=== PATIENT | male | born 1975 | race Caucasian/White ===

== ENCOUNTER 2024-12-10 17:16 | Emergency (ER) | payer MEDICAID, SELFPAY ==
[2024-12-10 17:24] VITALS: PULSE 98; O2SAT 97
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
--- NOTE | 2024-12-10 18:27 | XR_ITS ---
Examination: Knee, left , 3 views Technique: Knee AP, lateral, oblique 3 views Date and time of exam: December 10, 2024 1810 hrs. Indications: Injury to the knee one day ago, knee pain Findings: Large knee effusion No acute fracture Moderate osteopenia Impression: Given the large knee effusion, consider CT scan knee without contrast follow-up to exclude occult fracture
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
[2024-12-10 18:29] VITALS: BP 69/47; PULSE 80; RESP 18; TEMP 36.6; O2SAT 96
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
[2024-12-10] MEDS: ACETAMINOPHEN 325 MG TABLET 650 MG PO (19:18)
[2024-12-10] MEDS: ONDANSETRON ODT 4 MG TABRAP PO (19:20)
[2024-12-10 19:26] VITALS: BP 156/86; PULSE 113; RESP 18; TEMP 37; O2SAT 95
[2024-12-10 21:00] VITALS: BP 142/76; PULSE 100; RESP 20; TEMP 36.8; O2SAT 98
== END 2024-12-10 21:02 | disposition home or self-care (01) ==
LOC: SERX 20:56
PROVIDERS: Emergency Provider Emergency Medicine
DX: S80.02XA Contusion of left knee, initial encounter (principal); M25.462 Effusion, left knee; S19.9XXA Unspecified injury of neck, initial encounter; S09.90XA Unspecified injury of head, initial encounter; V19.3XXA Pedal cyclist (driver) (passenger) injured in unspecified nontraffic accident, initial encounter; Y93.55 Activity, bike riding; Z91.148 Patient's other noncompliance with medication regimen for other reason
CPT/HCPCS: 70450; 72125; 73562; 80053; 81001; 82010; 82550; 83605; 83690; 84484; 85025; 85610; 99284; Q0162; A9270

== ENCOUNTER 2025-02-10 11:05 | Inpatient (IN) | payer MEDICAID, SELFPAY ==
[2025-02-10] VITALS (9 sets, daily range): BP systolic 107–123; BP diastolic 66–81; PULSE 93–139; RESP 18–26; TEMP 36.3–38.3; O2SAT 95–100; BMI 24.5
--- NOTE | 2025-02-10 11:15 | PD.EDNV ---
Nausea/Vomit./Diarrhea-RME/HPI General Chief complaint: Nausea/Vomiting/Diarrhea Stated complaint: N/V/D Time Seen by Provider: 02/10/25 11:10 Arrival date/time: 02/10/25 11:05 Limitations: no limitations RME / HPI RME / HPI Narrative: 49-year-old male with a history of type 2 diabetes is here today with a 3-day history of nausea, vomiting, and stating he is losing weight. He denies any diarrhea. Denies any urinary frequency or dysuria. No fevers or chills. He states he normally takes pills for his diabetes but has not been taking them. Med list here includes insulin lispro. Patient initially seen by me as he checked in at the [facility]. After his vital signs were checked, patient was found to have mild tachycardia and a mild fever. Labs are drawn and positive for the patient had a leukocytosis. This triggered a sepsis response. Additional orders were requested. MD complaint: nausea and vomiting Related Data Home Medications ?Medication ?Instructions ?Recorded ?Confirmed gemfibrozil 600 mg tablet 600 mg PO BID 12/23/19 12/23/19 metformin 1,000 mg tablet 1,000 mg PO BID 12/23/19 12/23/19 Previous Rx's ?Medication ?Instructions ?Recorded insulin detemir U-100 100 unit/mL 40 unit (0.4 mL) subcut QDAY #3 mL 12/26/19 (3 mL) subcutaneous pen (Levemir FlexTouch U-100 Insulin) insulin lispro 100 unit/mL See Rx Instructions .Route 12/26/19 subcutaneous pen .COMPLEX #3 mL aspirin 81 mg tablet,delayed 81 mg PO QDAY #30 tabs 06/22/23 release atorvastatin 20 mg tablet 20 mg PO QPM #30 tabs 06/22/23 clopidogrel 75 mg tablet 75 mg PO QDAY #30 tabs 06/22/23 meloxicam 7.5 mg tablet 7.5 mg PO QDAY #10 tabs 12/10/24 Allergies Allergy/AdvReac Type Severity Reaction Status Date / Time No Known Allergies Allergy Verified 02/10/25 11:08 Review of Systems Review of Systems Systems Reviewed: All systems reviewed, normal except as documented ED Exam General Limitations: Present no limitations General appearance: Present alert and in no apparent distress Head Head exam: Present atraumatic Eye Eye exam: Present normal appearance, PERRL and EOMI ENT ENT exam: Present normal exam, normal oropharynx and mucous membranes moist Neck Neck exam: Present normal inspection, full ROM and trachea midline Chest Chest inspection: Present normal inspection and symmetric chest wall rise Respiratory Respiratory exam: Present normal lung sounds bilaterally Cardiovascular Cardiovascular exam: Present regular rate, normal rhythm and normal heart sounds Abdominal Exam Abdominal exam: Present soft and normal bowel sounds Extremities Exam Extremities exam: Present full ROM Back Exam Back exam: Present normal inspection, full ROM and other ( mild erythema but no open wounds at the sacram) Neurological Exam Neurological exam: Present alert and oriented X3 Psychiatric Psychiatric exam: Present normal affect and normal mood Skin Skin exam: Present warm, dry and intact Other Other exam information: There is mild erythema but no open wounds at the sacrum. There is significant skin breakdown, erythema, and mild purulent drainage of the right hallux and in between the webspaces of all the toes. There is dark, black, necrotic tissue at the distal right hallux, maggots are present. There is mild distal erythema of the left toes with no purulent drainage within the webspaces. Course Course Course Narrative: Patient was initially seen by me as he walked into the emergency room at the [facility] while being triaged. His complaint was nausea, vomiting, and not taking his antidiabetic medications. Workup was initiated at time. Patient was later found to be tachycardic, febrile, and had a leukocytosis. He was brought back to exam room and further examined. It was noted that patient had open wounds at his right toe, maggots were present in his skin. Patient states he is homeless and has bipolar disorder. He does not take any medications at all. He denies any history of alcohol or substance abuse. Interventions were initiated included the fluid bolus, initially ceftriaxone, once his skin infection was noted, we started vancomycin. We will admit to medicine. Case discussed with attending ER physician At approximately 1700 p.m., the resident with the hospitalist team was contacted and the case were discussed. They will review the case but will likely admit the patient. Quality Measures none Orders Category Date Time Status Admit to Inpatient Status Routine Admission 02/10/25 17:06 Active Patient Condition Routine Admission 02/10/25 17:06 Ordered Bedside Blood Glucose [facility] Care 02/10/25 17:11 Active Bedside Blood Glucose NOW Care 02/10/25 11:17 Active COVID-19 Screening Questionnaire NOW Care 02/10/25 13:[address] Screening NOW Care 02/10/25 13:04 Active Decision to Admit X1 Care 02/10/25 13:19 Active NPO after Midnight ONCE Care 02/10/25 17:15 Active Notify provider NEEDED Care 02/10/25 17:06 Active Wound Care NOW Care 02/10/25 17:11 Active Consult to General Surgery Routine Cons 02/10/25 17:11 Ordered Diet Carbohydrate Consistent Low Diet 02/10/25 Dinner Active Diet NPO after Midnight Diet 02/11/25 00:01 Active CA echo doppler complete Routine Exams 02/10/25 17:[address] abdomen pelvis w con Stat Exams 02/10/25 13:03 Completed XR chest 1V Stat Exams 02/10/25 12:21 Completed XR foot comp BI min 3V Stat Exams 02/10/25 13:15 Completed A1C [Glycohemoglobin w (eAG)] AM DRAW Lab 02/11/25 05:00 Ordered Basic Metabolic Panel AM DRAW Lab 02/11/25 05:00 Ordered Basic Metabolic Panel AM DRAW Lab 02/12/25 05:00 Ordered Basic Metabolic Panel AM DRAW Lab 02/13/25 05:00 Ordered Blood Culture (Lab) Stat Lab 02/10/25 12:33 Received CBC AM DRAW Lab 02/11/25 05:00 Ordered CBC AM DRAW Lab 02/12/25 05:00 Ordered CBC AM DRAW Lab 02/13/25 05:00 Ordered CBC Stat Lab 02/10/25 11:36 Completed CMP [Comprehensive Metabolic Panel] Stat Lab 02/10/25 11:36 Completed Drug Screen,Urine Stat Lab 02/10/25 17:18 Ordered Ketone [Beta Hydroxybutyrate] Stat Lab 02/10/25 11:36 Completed Lactic Acid [Lactate (Lactic Acid)] Stat Lab 02/10/25 12:33 Completed Lipase Stat Lab 02/10/25 11:36 Completed Lipid Panel AM DRAW Lab 02/11/25 05:00 Ordered Magnesium AM DRAW Lab 02/11/25 05:00 Ordered Magnesium AM DRAW Lab 02/12/25 05:00 Ordered Magnesium AM DRAW Lab 02/13/25 05:00 Ordered Partial Thromboplastin Time AM DRAW Lab 02/11/25 05:00 Ordered Phosphorous AM DRAW Lab 02/11/25 05:00 Ordered Phosphorous AM DRAW Lab 02/12/25 05:00 Ordered Phosphorous AM DRAW Lab 02/13/25 05:00 Ordered Prothrombin Time with INR AM DRAW Lab 02/11/25 05:00 Ordered Thyroid Stimulating Hormone AM DRAW Lab 02/11/25 05:00 Ordered UA [Urinalysis] Stat Lab 02/10/25 12:03 Completed Urine Culture Routine Lab 02/10/25 17:09 Ordered Wound Cult and GS, Anaer Stat Lab 02/10/25 13:18 Received Acetaminophen Tab [Tylenol ES Tab] Med 02/10/25 12:36 Discontinued 1,000 mg PO X1 ONE Acetaminophen Tab [Tylenol Tab] Med 02/10/25 17:06 Active 650 mg PO Q6H PRN Dextrose 50% Syr [D50w Syringe Abboject] Med 02/10/25 17:11 Active 25 ml IV Q15MIN PRN Dextrose 50% Syr [D50w Syringe Abboject] Med 02/10/25 17:11 Active 50 ml IV Q15MIN PRN Glucagon Inj Med 02/10/25 17:11 Active 1 mg IM Q15MIN PRN Heparin Inj Med 02/10/25 21:00 Active 5,000 unit SC BID INSULIN LISPRO (AdmeLOG) [HumaLOG] Med 02/10/25 17:16 Discontinued 10 unit SC X1 ONE INSULIN LISPRO (AdmeLOG) [HumaLOG] Med 02/10/25 18:00 Active See Protocol SC Q6HR Insulin Glargine Inj [Lantus Inj] Med 02/10/25 17:30 Active 15 unit SC QDAY Morphine Inj Med 02/10/25 17:06 Active 1 mg IVP Q4H PRN Morphine Inj Med 02/10/25 13:17 Discontinued 2 mg IVP X1 ONE Ondansetron Inj [Zofran Inj] Med 02/10/25 17:06 Active 4 mg IVP Q6H PRN Ondansetron Odt [Zofran Odt] Med 02/10/25 11:10 Discontinued 4 mg PO X1 ONE Pantoprazole Inj [Protonix Inj] Med 02/11/25 09:00 Active 40 mg IVP QDAY Piper/Tazo 3.375 gm Premix [Zosyn] Med 02/10/25 22:00 Active 3.375 gm in 50 ml IV Q8HR Piper/Tazo 3.375 gm Premix [Zosyn] Med 02/10/25 17:15 Discontinued 3.375 gm in 50 ml IV X1 QUEtiapine FUMARATE [SEROquel] Med 02/10/25 21:00 Active 25 mg PO HS Sodium Chloride 0.9% 1000 ml [Ns] 1,000 ml Med 02/10/25 17:15 Active IV 75 mls/hr Sodium Chloride 0.9% 1000 ml [Ns] 1,000 ml Med 02/10/25 11:18 Discontinued IV 999 mls/hr Sodium Chloride 0.9% 1000 ml [Ns] 2,259 ml Med 02/10/25 12:22 Discontinued IV 2,259 mls/hr Vancomycin Inj 2,000 mg Med 02/10/25 13:15 Discontinued Sodium Chloride 0.9% 500 ml [Ns] 500 ml IV X1 Vancomycin Pharmacy to Dose Med 02/11/25 09:00 Active 1 each IV QDAY PRN Vancomycin/Ns 1 gm Ivpb 200 ml Med 02/11/25 10:00 Active IV Q12H Vancomycin/Ns 1 gm Ivpb 200 ml Med 02/10/25 22:00 Active IV X1 cefTRIAXone [Rocephin] 2 gm Med 02/10/25 12:25 Discontinued SODIUM CHLORIDE 0.9% (Popper) [Ns 0.9% (P)] 50 ml IV X1 Code Status Routine Oth 02/10/25 17:06 Ordered Vital Signs Vital signs: Vital Signs Temperature 100.9 F H 02/10/25 11:56 Pulse Rate 139 H 02/10/25 11:56 Respiratory Rate 18 02/10/25 11:56 Blood Pressure 123/81 02/10/25 11:56 Pulse Oximetry (%) 97 02/10/25 11:56 Oxygen Delivery Method Room Air 02/10/25 11:56 Nausea/Vomiting/Diarrhea Patient data External records reviewed:: None Clinical information provided by:: patient and friend Social determinants that could affect healthcare access:: mental health Patient has the following chronic illnesses:: Possible bipolar disorder, has diabetes, has hypertension How is presenting disease/condition affected by chronic disease/condition?: exacerbated by Evaluation data The following diagnostics were reviewed and interpreted by me:: lab results and radiology exam(s) Lab and/or radiology exams considered but not ordered:: mri foot Interpretation Summary: Osteomyelitis and hyperglycemia, hyponatremia, elevated CRP Medications / Prescriptions Medications / Prescriptions considered but not ordered:: n/a Medication administrations:: Medication Administration History Acetaminophen (Acetaminophen 325 Mg Tablet) 650 mg PO Q6H PRN PRN Reason: PAIN OR FEVER > 100.4 Stop: 03/12/25 17:05 Dextrose (Dextrose 50%-Water Inj 50 Ml Syringe) 25 ml IV Q15MIN PRN PRN Reason: BG 50-70 responsive npo pt Stop: 03/12/25 17:10 Dextrose (Dextrose 50%-Water Inj 50 Ml Syringe) 50 ml IV Q15MIN PRN PRN Reason: BG <50 OR BG <70 & pt unresponsive Stop: 03/12/25 17:10 Glucagon (Glucagon Inj 1 Mg Vial) 1 mg IM Q15MIN PRN PRN Reason: BG <70, and no IV access Heparin Sodium (Porcine) (Heparin Sod Inj 5000 Unit/Ml Vial) 5,000 unit SC BID CHAUNCEY Stop: 02/24/25 20:59 Sodium Chloride (Ns) 1,000 mls @ 75 mls/hr IV .[id number] [place]CEY Stop: 03/12/25 17:14 Piperacillin/Tazobactam/Dextrose (Zosyn) 3.375 gm in 50 mls @ 12.5 mls/hr IV Q8HR [place]CE[place] Stop: 02/17/25 21:59 Vancomycin/Sodium Chloride (Vancomycin/Ns 1 Gm Ivpb) 200 mls @ 120 mls/hr IV X1 ONE Stop: 02/10/25 23:39 Vancomycin/Sodium Chloride (Vancomycin/Ns 1 Gm Ivpb) 200 mls @ 120 mls/hr IV Q12H [place] Stop: 02/18/25 09:59 Insulin Glargine (Insulin Glargine (Lantus) 5 Unit/0.05 Ml (Per 5 Units)) 15 unit SC QDAY [place]CEY Stop: 03/12/25 17:29 Insulin Human Lispro (Insulin Lispro (Admelog) 1 Unit/0.01 Ml Unit) 0 unit SC Q6HR CHAUNCEY; Protocol Stop: 03/12/25 17:59 Morphine Sulfate (Morphine Sulf Inj 10 Mg/Ml Vial) 1 mg IVP Q4H PRN PRN Reason: PAIN SCALE 4-10(Mod-Sev Stop: 02/15/25 17:05 Ondansetron HCl (Ondansetron Inj 2 Mg/Ml Inj 2 Ml) 4 mg IVP Q6H PRN; Protocol PRN Reason: NAUSEA OR VOMITING Stop: 03/12/25 17:05 Pantoprazole Sodium (Pantoprazole Inj 40 Mg Vial) 40 mg IVP QDAY [place] Stop: 03/13/25 08:59 Pharmacy Consult (Vancomycin Pharmacy To Dose 1 Each Each) 1 each IV QDAY PRN PRN Reason: PROTOCOL Stop: 03/13/25 08:59 Quetiapine Fumarate (Quetiapine Fumarate 25 Mg Tablet) 25 mg PO HS [place]CE[place] Stop: 03/12/25 20:59 Discontinued Medications Acetaminophen (Acetaminophen 500 Mg Tablet) 1,000 mg PO X1 ONE Stop: 02/10/25 12:37 Last Admin: 02/10/25 12:42 Dose: 1,000 mg Documented By: SALMA Sodium Chloride (Ns) 1,000 mls @ 999 mls/hr IV .Q1H1M ONE Stop: 02/10/25 12:18 Last Admin: 02/10/25 12:56 Dose: Not Given Documented By: SALMA Non-Admin Reason: Duplicate Medication on eMAR Sodium Chloride (Ns) 2,259 mls @ 2,259 mls/hr 30 ml/kg infuse over 60 min (2259 ml) IV .Q1H ONE; Protocol Stop: 02/10/25 13:21 Last Infusion: 02/10/25 13:56 Dose: Infused Documented By: Admin: 02/10/25 12:56 Dose: 2,259 mls/hr Documented By: VL Ceftriaxone Sodium 2 gm/ (Sodium Chloride) 50 mls @ 100 mls/hr IV X1 ONE Stop: 02/10/25 12:54 Last Infusion: 02/10/25 13:13 Dose: Infused Documented By: Admin: 02/10/25 12:43 Dose: 100 mls/hr Documented By: VL Vancomycin HCl 2,000 mg/ (Sodium Chloride) 500 mls @ 150 mls/hr IV X1 ONE Stop: 02/10/25 16:34 Last Admin: 02/10/25 13:37 Dose: 150 mls/hr Documented By: SALMA Piperacillin/Tazobactam/Dextrose (Zosyn) 3.375 gm in 50 mls @ 100 mls/hr IV X1 ONE Stop: 02/10/25 17:44 Insulin Human Lispro (Insulin Lispro (Admelog) 1 Unit/0.01 Ml Unit) 10 unit SC X1 ONE Stop: 02/10/25 17:17 Morphine Sulfate (Morphine Sulf Inj 10 Mg/Ml Vial) 2 mg IVP X1 ONE Stop: 02/10/25 13:18 Last Admin: 02/10/25 13:37 Dose: 2 mg Documented By: SALMA Ondansetron HCl (Ondansetron Odt 4 Mg Tabrap) 4 mg PO X1 ONE; Protocol Stop: 02/10/25 11:11 Last Admin: 02/10/25 11:51 Dose: 4 mg Documented By: SALMA see above Consultations Consultation(s) initiated? (list below): No Diagnosis Nausea Differential Diagnosis: gastroenteritis and dehydration Most likely diagnosis given after review of the tests above:: Hyponatremia, hyperglycemia, poorly controlled diabetes, osteomyelitis right toe Admission Indicated Admission indicated?: indicated Admission Request Was there a request for admission?: Yes Admission Attestation Admission request attestation: Discussed case with [] from Hospitalist service regarding admission. Discussed patients ED course, exam findings, labs, and radiology results. The Hospitalist [agrees,declines] to accept the patient for admission. Disposition Plan Disposition Plan: Admit Discharge Plan Plan Patient Disposition: Admit Acute Care w/in Hospital Patient condition on transfer: Stable Prescriptions/Referrals Prescriptions/Med Rec: No Action gemfibrozil 600 mg Tablet 600 mg PO BID metformin 1,000 mg Tablet 1,000 mg PO BID Levemir FlexTouch U100 Insulin 100 unit/mL (3 mL) insulin pen 40 unit SC QDAY Qty: 3 0RF Rx Instructions: Please provide with corresponding needles and caps. insulin lispro 100 unit/mL insulin pen See Rx Instructions .ROUTE .COMPLEX Qty: 3 0RF Rx Instructions: Please administer TID AC and HS per light sliding scale. Please provide with corresponding pens and caps. clopidogrel 75 mg tablet 75 mg PO QDAY Qty: 30 2RF atorvastatin 20 mg tablet 20 mg PO QPM Qty: 30 2RF aspirin 81 mg tablet,delayed release (DR/EC) 81 mg PO QDAY Qty: 30 2RF meloxicam 7.5 mg tablet 7.5 mg PO QDAY Qty: 10 0RF Referrals: No Primary/Family,Physician [Primary Care Provider] - In 1 week Problem List Clinical Impression: DOT (acute kidney injury), Acute hyponatremia, Sepsis, Osteomyelitis, Acute hyperglycemia Patient/Caregiver Discharge Instructions Print Language: B[place] Stand Alone Forms: Brigitte Award Info., Patient Portal Info Letter
[2025-02-10 11:44] LABS: Beta Hydroxybutyrate 0.1 mmol/L (<0.6)
[2025-02-10] MEDS: ONDANSETRON ODT 4 MG TABRAP PO (11:51)
[2025-02-10 11:53] LABS: Basophils # (Auto) 0.1 Thou/mm3 (0.0-0.2); Basophils % (Auto) 0 % (0-2.5); Eosinophils # (Auto) 0.0 Thou/mm3 (0.0-0.5); Eosinophils % (Auto) 0 % (0-10); Hematocrit 29.8 % (41.0-53.0); Hemoglobin 10.1 g/dL (13.5-16.0); Immature Granulocytes Auto 0.13 Thou/mm3 (0.00-0.00); Lymphocytes # (Auto) 0.7 Thou/mm3 (1.0-4.8); Lymphocytes % (Auto) 3 % (10-50); Mean Corpuscular HGB Conc 33.9 g/dl (31.0-37.0); Mean Corpuscular Hemoglobin 30.2 pg (25.0-35.0); Mean Corpuscular Volume 89 fL (80-100); Monocytes # (Auto) 1.2 Thou/mm3 (0.0-0.8); Monocytes % (Auto) 6 % (0-12); Neutrophils # (Auto) 20.3 Thou/mm3 (1.8-7.7); Neutrophils % (Auto) 91 % (37-80); Nucleated Red Blood Cell # 0.00 Thou/mm3 (0.00-0.00); Nucleated Red Blood Cell % 0 /100 WBC (0); Platelet Count 358 Thou/mm3 (140-440); RDW Standard Deviation 39.3 fL (35.1-43.9); Red Blood Count 3.34 Miln/mm3 (4.50-5.90); White Blood Count 22.4 Thou/mm3 (3.8-10.6)
--- NOTE | 2025-02-10 11:57 | PC.NURSE ---
Patient in to ED for nausea, vomiting, and diarrhea. Patient has history of diabetes. Patient states his friend saw him and said he did not look good. Patients blood sugar elevated. Patient admits to using methamphetamine this morning, Heart rate 139. All other vital's stable. Plan of care ongoing
[2025-02-10 12:02] LABS: Alanine Aminotransferase 12 U/L (10-49); Albumin, Serum 3.8 gm/dL (3.5-5.0); Albumin/Globulin Ratio 0.8 (1.2-2.2); Alkaline Phosphatase 97 U/L (46-116); Anion Gap 10 (7-16); Aspartate Amino Transferase 16 U/L (0-34); BUN/Creatinine Ratio 14 Ratio (12-20); Bilirubin,Total 0.5 mg/dL (0.3-1.2); Blood Urea Nitrogen 20 mg/dL (9-23); Calcium 9.4 mg/dL (8.3-10.6); Calcium (Corrected) 9.6 mg/dL (8.5-10.1); Carbon Dioxide 27.2 mMol/L (20.0-31.0); Chloride 92 mMol/L (98-107); Creatinine (Component) 1.4 mg/dL (0.6-1.3); Estimated Creatinine Clearance 62.4 mL/min (>60); Globulin 4.5 gm/dL (2.3-3.5); Glucose 372 mg/dL (74-106); Lipase 24 U/L (12-53); Osmolality,Calculated 276 (275-295); Potassium 5.0 mMol/L (3.4-5.1); Sodium 129 mMol/L (136-145); Total Protein 8.3 gm/dL (5.7-8.2); eGFR > 60 See Note
[2025-02-10 12:17] LABS: Collection Type, Urine Voided
--- NOTE | 2025-02-10 12:21 | XR_ITS ---
Examination: AP chest single view Technique: AP portable semiupright chest single view Date and time: February 10, 2025 1308 hrs. Comparison June 12, 2023 Indications: Vomiting today. Findings: Mild prominence left ventricle. No aspiration pneumonia. Mild osteopenia. Impression: No aspiration pneumonia.
[2025-02-10 12:37] LABS: Amorphous Crystals,Urine Present (Absent); Bacteria,Urine Rare; Bilirubin,Urine Negative (Negative); Blood,Urine Negative (Negative); Clarity,Urine Turbid (Clear/Hazy); Color,Urine Yellow (Lt Yel-Yel); Glucose, Urine 4+ (Negative); Granular Casts,Urine 1 /hpf (0-1); Hyaline Casts,Urine < 1 /hpf (0-1); Ketones,Urine Negative (Negative); Leukocyte Esterase,Urine Negative (Negative); Nitrite,Urine Negative (Negative); PH,Urine 6.0 (5.0-7.0); Protein,Urine 2+ (Neg - Trace); RBC,Urine 2 /hpf (0-3); Specific Gravity,Urine 1.028 (1.001-1.035); Squamous Epithelial Cell,Urine < 1 /hpf (0-5); Transitional Epi Cells,Urine 1 /hpf (0-5); Urobilinogen,Urine 2.0 mg/dL (0.0-1.0); WBC,Urine 7 /hpf (0-5)
[2025-02-10] MEDS: ACETAMINOPHEN 500 MG TABLET 1000 MG PO (12:42)
[2025-02-10 12:43] LABS: Lactate (Lactic Acid) 1.5 mMol/L (0.4-2.0)
[2025-02-10] MEDS: cefTRIAXone 2 GM in SODIUM CHLORIDE 0.9% (Popper) 50 ML IV (12:43)
[2025-02-10] MEDS: SODIUM CHLORIDE 0.9% 1000 ML 2,259 ML 2259 ML IV (12:56)
--- NOTE | 2025-02-10 13:03 | XR_ITS ---
Examination: CT abdomen with intravenous contrast CT pelvis with intravenous contrast 2-D coronal reconstructions 2-D sagittal reconstructions Date and time of exam:2024 1450 hrs. Indications: Sepsis alert, tachycardia, vomiting, leukocytosis, nausea vomiting diarrhea beginning 3 days ago, diabetes. CTDI: vol (mGy) 5.99 DLP: (mGycm) 361 Technique: Multiple axial sections of the abdomen and pelvis have been obtained. 64 slice high-resolution scanner used. 3 mm axial sections have been obtained, post intravenous injection 30 cc [id number] 2-D sagittal, coronal reconstructions obtained. Low dose protocols were performed. One or more of the following dose reduction techniques were used; automated exposure control, adjustment of the mA and/or KV according to patient size, use of iterative reconstruction technique. Findings: No aspiration pneumonia. Fatty infiltration throughout the liver. No gallstones No pancreatic or splenic lesion Normal adrenal glands. Minimal right hydronephrosis right hydroureter without renal or ureteral calculi Normal appendix No bowel obstruction Mild prostatomegaly No bladder mass or bladder calculi Moderate osteopenia with chronic osteoporotic compression T10 Impression: Findings suspicious for right pyelonephritis No bowel obstruction Normal appendix
--- NOTE | 2025-02-10 13:15 | XR_ITS ---
Examination: Foot bilateral, 6 views Technique: AP, oblique, lateral views each foot total 6 views Date and time of exam: February 10, 2025, 1433 hrs. Indications: Nonhealing wounds both feet Findings: Severe osteopenia Erosions distal aspect distal phalanx right first digit with soft tissue swelling No judson cortical bone destruction involving the left foot No foreign bodies Impression: Osteomyelitis distal phalanx right foot first digit Consider elective MRI foot without contrast follow-up
[2025-02-10] MEDS: Vancomycin Inj 2,000 MG in SODIUM CHLORIDE 0.9% 500 ML 500 ML 150 MG IV (13:37)
[2025-02-10] MEDS: MORPHINE SULF INJ 10 MG/ML VIAL 2 MG IVP (13:37)
--- NOTE | 2025-02-10 17:13 | ESHP_ITS ---
Documentation for date of: 02/10/25 HPI History of Present Illness History of present illness: Jaya Clements is a homeless 49-year-old male with a past medical history of CVA in 2022 and insulin-dependent type 2 diabetes mellitus who presents on 02/10 after his friend brought him into the ED as he did not look well. Patient himself did not have any complaints but a friend of his noticed that his right hallux was bleeding and had maggots that started about 2 weeks ago. He cannot recall an inciting event that may have led to his injury but currently does not have any pain. Also denies any fever, chills, sweats but has had some nausea and vomiting for the last 2 to 3 days as well as diarrhea but states that this is not new to him. He also states he has had a 60 pound weight loss but he himself did not notice this and is unsure of how long this has been occurring. Also denies abdominal pain, change in bowel movements, or any urinary symptoms/back pain. In ED, initial vitals showed HR 139, temp 100.9 ?F. CBC showed leukocytosis of 22.4, hemoglobin of 10.1. CHEM panel showed sodium 129 with glucose of 372 and corrected sodium of 134, creatinine 1.4 (baseline 1.0), lactic acid within normal limits, lipase within normal limits, beta hydroxybutyrate within normal limits, UA turbid, 2+ protein, 4+ glucose, 7 WBC, rare bacteria. CXR unremarkable. CT A/P showed findings suspicious for right pyelonephritis. X- ray right foot showed osteomyelitis of distal phalanx of right hallux. In ED, given 1 L NS bolus, ceftriaxone x 1, vancomycin x 1. PMHx: Insulin-dependent type 2 diabetes mellitus, CVA in 2022 Medications: Has not taken any medication in last couple of years SHx: Homeless, smokes half pack cigarettes per day, occasional alcohol use, currently uses meth (last use yesterday) Review of Systems Review of Systems Systems Reviewed: All systems reviewed, normal except as documented Exam Vital Signs Temp Pulse Resp BP Pulse Ox O2 Del Method O2 Flow Rate 98.4 F 104 H 18 115/72 100 Nasal Cannula 4 02/10/25 16:44 02/10/25 16:44 02/10/25 16:44 02/10/25 16:44 02/10/25 16:44 02/10/25 16:44 02/10/25 16:44 Narrative Exam General: AOx3, no acute distress, difficult to understand/dysarthric HEENT: Poor dentition, NC/AT, mucous membranes moist, bilateral sclera anicteric Cardiovascular: regular rate and rhythm, S1/S2 present, no murmurs appreciated Pulmonary: clear to auscultation bilaterally, no rales/rhonchi/wheezes Abdominal: soft, non-tender, non-distended, no rebound/guarding, normal bowel sounds present Musculoskeletal: normal ROM, no peripheral edema Skin: Right hallux with necrotic tissue draining blood and maggots present with associated foul smell Neuro: CN II-XII intact, no focal deficits Results: Labs 02/11/25 05:59 02/11/25 05:59 Labs: Short CBC 02/10/25 Range/Units 11:36 WBC 22.4 H (3.8-10.6) Thou/mm3 Hgb 10.1 L (13.5-16.0) g/dL Hct 29.8 L (41.0-53.0) % Plt Count 358 (140-440) Thou/mm3 BMP 02/10/25 11:36 Sodium 129 L Potassium 5.0 Chloride 92 L Carbon Dioxide 27.2 BUN 20 Creatinine 1.4 H Glucose 372 H Calcium 9.4 Liver Function 02/10/25 Range/Units 11:36 Total Bilirubin 0.5 (0.3-1.2) mg/dL AST 16 (0-34) U/L ALT 12 (10-49) U/L Alkaline Phosphatase 97 (46-116) U/L Albumin 3.8 (3.5-5.0) gm/dL Urine 02/10/25 Range/Units 12:03 Urine Color Yellow (Lt Yel-Yel) Urine Clarity Turbid A (Clear/Hazy) Urine pH 6.0 (5.0-7.0) Ur Specific Seale 1.028 (1.001-1.035) Urine Protein 2+ A (Neg - Trace) Urine Glucose (UA) 4+ A (Negative) Quality Measures Quality Measures VTE prophylaxis Medications Home Medications and Allergies Home Medications ?Medication ?Instructions ?Recorded ?Confirmed ?Type gemfibrozil 600 mg tablet 600 mg PO BID 12/23/1912/22 History metformin 1,000 mg tablet 1,000 mg PO BID 12/23/1911/08 History Allergies Allergy/AdvReac Type Severity Reaction Status Date / Time No Known Allergies Allergy Verified 02/10/25 11:08 Visit Medications Acetaminophen (Acetaminophen 325 Mg Tablet) 650 mg PO Q6H PRN PRN Reason: PAIN OR FEVER > 100.4 Stop: 03/12/25 17:05 Dextrose (Dextrose 50%-Water Inj 50 Ml Syringe) 25 ml IV Q15MIN PRN PRN Reason: BG 50-70 responsive npo pt Stop: 03/12/25 17:10 Dextrose (Dextrose 50%-Water Inj 50 Ml Syringe) 50 ml IV Q15MIN PRN PRN Reason: BG <50 OR BG <70 & pt unresponsive Stop: 03/12/25 17:10 Glucagon (Glucagon Inj 1 Mg Vial) 1 mg IM Q15MIN PRN PRN Reason: BG <70, and no IV access Heparin Sodium (Porcine) (Heparin Sod Inj 5000 Unit/Ml Vial) 5,000 unit SC BID [facility] Stop: 02/24/25 20:59 Sodium Chloride (Ns) 1,000 mls @ 75 mls/hr IV .[id number] [facility] Stop: 03/12/25 17:14 Piperacillin/Tazobactam/Dextrose (Zosyn) 50 mls @ 100 mls/hr IV Q6HR [facility] Stop: 02/17/25 17:09 Insulin Human Lispro (Insulin Lispro (Admelog) 1 Unit/0.01 Ml Unit) 0 unit SC Q6HR [facility]; Protocol Stop: 03/12/25 17:59 Morphine Sulfate (Morphine Sulf Inj 10 Mg/Ml Vial) 1 mg IVP Q4H PRN PRN Reason: PAIN SCALE 4-10(Mod-Sev Stop: 02/15/25 17:05 Ondansetron HCl (Ondansetron Inj 2 Mg/Ml Inj 2 Ml) 4 mg IVP Q6H PRN; Protocol PRN Reason: NAUSEA OR VOMITING Stop: 03/12/25 17:05 Pantoprazole Sodium (Pantoprazole Inj 40 Mg Vial) 40 mg IVP QDAY [facility] Stop: 03/13/25 08:59 Pharmacy Consult (Vancomycin Pharmacy To Dose 1 Each Each) 1 each IV QDAY [facility] Stop: 03/13/25 08:59 Discontinued Medications Acetaminophen (Acetaminophen 500 Mg Tablet) 1,000 mg PO X1 ONE Stop: 02/10/25 12:37 Last Admin: 02/10/25 12:42 Dose: 1,000 mg Sodium Chloride (Ns) 1,000 mls @ 999 mls/hr IV .Q1H1M ONE Stop: 02/10/25 12:18 Last Admin: 02/10/25 12:56 Dose: Not Given Sodium Chloride (Ns) 2,259 mls @ 2,259 mls/hr 30 ml/kg infuse over 60 min (2259 ml) IV .Q1H ONE; Protocol Stop: 02/10/25 13:21 Last Infusion: 02/10/25 13:56 Dose: Infused Ceftriaxone Sodium 2 gm/ (Sodium Chloride) 50 mls @ 100 mls/hr IV X1 ONE Stop: 02/10/25 12:54 Last Infusion: 02/10/25 13:13 Dose: Infused Vancomycin HCl 2,000 mg/ (Sodium Chloride) 500 mls @ 150 mls/hr IV X1 ONE Stop: 02/10/25 16:34 Last Admin: 02/10/25 13:37 Dose: 150 mls/hr Morphine Sulfate (Morphine Sulf Inj 10 Mg/Ml Vial) 2 mg IVP X1 ONE Stop: 02/10/25 13:18 Last Admin: 02/10/25 13:37 Dose: 2 mg Ondansetron HCl (Ondansetron Odt 4 Mg Tabrap) 4 mg PO X1 ONE; Protocol Stop: 02/10/25 11:11 Last Admin: 02/10/25 11:51 Dose: 4 mg Assessment & Plan Plan Jaya Clements is a homeless 49-year-old male with a past medical history of CVA in 2022 and insulin-dependent type 2 diabetes mellitus who is admitted for right hallux osteomyelitis and DOT. #Sepsis secondary to right hallux osteomyelitis #Wet gangrene of right hallux Presents with necrotic, foul-smelling, draining tissue with maggots present on the right hallux. No fever or chills but has had some nausea and vomiting. ED, temperature 100.9 ?F, HR 139, leukocytosis of 22.4, and endorgan damage evidenced by DOT with creatinine 1.4 (baseline 1.0). Patient also has a history of uncontrolled diabetes mellitus which is likely contributing to severity of infection. Patient states that he is homeless and has not taken medications in years. CXR if right foot showed erosions distal aspect distal phalanx right first digit with soft tissue swelling. ? General Surgery consulted, appreciate recommendations ? Vancomycin and Zosyn (02/10-) ? Wound culture 02/10-pending ? Blood culture 02/10: Pending ? Wound care ? N.p.o. after midnight ? NS at 75 cc/h #Acute kidney injury #Right-sided pyelonephritis as seen on imaging Denies any urinary symptoms and no CVA tenderness on exam. UA showed 7 WBC but rare bacteria only. ? Follow-up urine culture ? Vancomycin and Zosyn as above ? NS at 75 cc/h ? Avoid nephrotoxic agents when possible, renally dose medications #Type 2 diabetes mellitus, insulin-dependent #Pseudohyponatremia A1c in 2022 with 10.5 and was 16.1 in 2019. Has not taken medications in many years. ? Glargine 15 units daily ? SSI ? Follow-up A1c ? Hypoglycemic protocol placed #Methamphetamine use #Homelessness ? Referral to social services manager ? Follow-up urine drug screen ? Follow-up echo to evaluate for possible side effects of methamphetamine use #History of stroke in 2022 Large acute infarct right frontoparietal lobe per MRI. Given that patient will likely undergo procedure, will hold antiplatelets at this time. ? Follow-up lipid panel in AM Hospital management: Disposition: Pending surgery recommendations, IV antibiotics, cultures, DOT Fluids: NS at 75 cc/h Diet: Carb consistent low, n.p.o. after midnight Lines: PIV DVT prophylaxis: Heparin SC BID GI prophylaxis: PPI CODE STATUS: full code ----- Plan discussed with attending physician Dr. Johan Brannon MD PGY-1 Internal Medicine Attending Provider Attestation/Addendum I attest that I was physically present for the evaluation, physical examination, lab and imaging review of the patient with the residents. I discussed the case with the residents and agree with the findings and plans of care as documented above. Patient is a 49 years old male with past medical history of CVA in 2022, diabetes mellitus who presented to the ED by his friend who thought patient did not look well. Patient has been having wound on his right first toe with bleeding and maggots which started 2 weeks back. Patient does not have any pain around his legs and does not remember any injury. Denies any fever. In the ED, he was found to have temperature of 100.9, WBC of 22.4. Also had glucose of 372, creatinine 1.4. UA showed 7 WBCs, rare bacteria. CT abdomen/pelvis suspicion for pyelonephritis. X-ray right foot showed osteomyelitis. On exam, right first toe is gangrenous with bleeding, foul smell, 1st and 2nd toe of right side. After examination of the patient and review of the clinical data I feel that this patient needs admission to the hospital for further treatment/evaluation of sepsis secondary to right hallux osteomyelitis, wet gangrene of acute kidney injury, pyelonephritis. We will start him on broad-spectrum antibiotic with IV vancomycin and Zosyn, we will obtain blood culture, wound care. General surgery has been consulted, patient started on gentle IV hydration and we will keep n.p.o. after midnight for possible surgical procedure. Started on insulin regimen for diabetes. We will refer to social services manager for homelessness and methamphetamine abuse, closely monitor for signs of withdrawal. Karol Prado MD
[2025-02-10] MEDS: INSULIN GLARGINE (Lantus) 5 UNIT/0.05 ML (PER 5 UNITS) 15 UNIT SC (18:16)
[2025-02-10] MEDS: INSULIN LISPRO (AdmeLOG) 1 UNIT/0.01 ML UNIT 10 UNIT SC (18:17)
[2025-02-10 19:02] LABS: Amphetamine/Methamp Scrn,U Positive (Negative); Barbiturate Screen,Urine Negative (Negative); Benzodiazepines Screen,Urine Negative (Negative); Benzoylecgonine Screen, Ur Negative (Negative); Fentanyl Screen,Urine Negative (Negative); Opiate Screen,Urine Positive (Negative); THC Screen,Urine Negative (Negative)
[2025-02-10] MEDS: PIPER/TAZO 3.375 GM PREMIX 3.375 GM/50 ML BAG IV ×2 (19:21→22:55)
[2025-02-10] MEDS: SODIUM CHLORIDE 0.9% 1000 ML 1,000 ML 75 ML IV (19:21)
[2025-02-10] MEDS: VANCOMYCIN/NS 1 GM IVPB 200 ML IV (21:08)
[2025-02-10] MEDS: HEPARIN SOD INJ 5000 UNIT/ML VIAL SC (21:09)
--- NOTE | 2025-02-10 21:12 | PD.SURCONS ---
HPI Consult details Consult date: 02/10/25 Reason for consultation narrative: Patient was seen in consultation because of the gangrene of the right great toe History of present illness: Patient is a homeless man and cannot give any definite history. He does not seem to be concerned about his health. He has developed some ulcer 2 weeks ago and now it has become gangrene over the right great toe. Patient does not have any pain but there were maggots on his foot. Patient also has a history of diabetes mellitus which is poorly controlled. He has maggots in his right foot Past Medical History Past Medical History NEUROLOGIC: Negative Neurological Disorders CARDIAC: Positive Cardiac Disorders (stroke), Hypercholesterolemia and Hypertension; Negative Congestive Heart Failure RESPIRATORY: Positive Smoking; Negative Chronic Obstructive Pulmonary Disease (COPD) or Asthma GASTROINTESTINAL: Negative Gastrointestinal Disorders GENITOURINARY: Negative Genitourinary Disorders or Renal Disease MUSCULOSKELETAL: Negative Musculoskeletal Disorders ENDOCRINE: Positive Endocrine Disorders and Diabetes Mellitus Type 2; Negative Diabetes Mellitus Type 1 HEMATOLOGIC: Negative Blood Disorders or Sickle Cell Disease PSYCHO/SOCIAL: Positive Recreational Drug Use, Depression and Anxiety OTHER HISTORY: Positive Hospitalization; Negative Autoimmune Disease, Down Syndrome, Developmental Delay, Shingles, Falls, Blood Transfusion Reaction, Anesthesia Reactions, Organ Transplant, Chemotherapy, Radiation Therapy, Hyperbaric Therapy, MRSA or Cancer Surgical History SURGICAL: Negative Organ Transplant Social History SMOKING STATUS: Current every day smoker SECOND HAND EXPOSURE: Yes SUBSTANCE USE: amphetamines and methamphetamine Meds Home Medications and Allergies Home Medications ?Medication ?Instructions ?Recorded ?Confirmed ?Type gemfibrozil 600 mg tablet 600 mg PO BID 12/23/19 12/23/19 History metformin 1,000 mg tablet 1,000 mg PO BID 12/23/19 12/23/19 History Allergies Allergy/AdvReac Type Severity Reaction Status Date / Time No Known Allergies Allergy Verified 02/10/25 11:08 Exam Vital Signs Temp Pulse Resp BP Pulse Ox O2 Del Method O2 Flow Rate 97.4 F 93 18 108/66 99 Room Air 4 02/10/25 20:00 02/10/25 20:00 02/10/25 20:00 02/10/25 20:00 02/10/25 20:00 02/10/25 20:00 02/10/25 18:00 Narrative Exam Physical examination revealed emaciated white male who appears to be chronically ill. His vital signs are normal. He is 5 feet 9 inches tall weighing 166 pounds Routine Extremities Exam Comments: Examination of both the extremities revealed poor hygiene. Right big toe shows gangrene. Patient has considerable amount of drainage from this foot. His pedal pulses are not palpable Results Results: Laboratory Laboratory Narrative: Laboratory results show WBC of 22,000. His glucose was 372 Results: Imaging Imaging narrative: X-ray of the right foot revealed osteomyelitis of the distal phalanx of the right great toe Assessment & Plan Additional Assessment Additional comments: Impression: Osteomyelitis and gangrene of the right great toe Poorly controlled diabetes mellitus Homelessness Hyponatremia History of CVA Plan Plan: We shall keep the patient clean with removing maggots from his foot. He will require antibiotic treatment to control the infection and then we can plan for amputation of the right great toe.
[2025-02-11] VITALS (7 sets, daily range): BP systolic 95–125; BP diastolic 61–86; PULSE 90–123; RESP 17–27; TEMP 36.9–38.4; O2SAT 97–98; BMI 23.0
[2025-02-11] MEDS: PIPER/TAZO 3.375 GM PREMIX 3.375 GM/50 ML BAG IV ×3 (05:22→21:32)
[2025-02-11] MEDS: ACETAMINOPHEN 325 MG TABLET 650 MG PO (05:24)
[2025-02-11] MEDS: INSULIN LISPRO (AdmeLOG) 1 UNIT/0.01 ML UNIT SC ×3 (06:08→21:34)
[2025-02-11 07:08] LABS: Basophils # (Auto) 0.0 Thou/mm3 (0.0-0.2); Basophils % (Auto) 0 % (0-2.5); Eosinophils # (Auto) 0.1 Thou/mm3 (0.0-0.5); Eosinophils % (Auto) 0 % (0-10); Hematocrit 26.6 % (41.0-53.0); Hemoglobin 8.9 g/dL (13.5-16.0); INR 1.1 (0.9-1.3); Immature Granulocytes Auto 0.09 Thou/mm3 (0.00-0.00); Lymphocytes # (Auto) 1.2 Thou/mm3 (1.0-4.8); Lymphocytes % (Auto) 7 % (10-50); Mean Corpuscular HGB Conc 33.5 g/dl (31.0-37.0); Mean Corpuscular Hemoglobin 30.2 pg (25.0-35.0); Mean Corpuscular Volume 90 fL (80-100); Monocytes # (Auto) 1.1 Thou/mm3 (0.0-0.8); Monocytes % (Auto) 6 % (0-12); Neutrophils # (Auto) 14.7 Thou/mm3 (1.8-7.7); Neutrophils % (Auto) 86 % (37-80); Nucleated Red Blood Cell # 0.00 Thou/mm3 (0.00-0.00); Nucleated Red Blood Cell % 0 /100 WBC (0); Partial Thromboplastin Time 34.5 Seconds (22.0-36.0); Platelet Count 297 Thou/mm3 (140-440); Prothrombin Time 12.2 Seconds (9.0-12.2); RDW Standard Deviation 39.5 fL (35.1-43.9); Red Blood Count 2.95 Miln/mm3 (4.50-5.90); White Blood Count 17.2 Thou/mm3 (3.8-10.6)
[2025-02-11 07:20] LABS: Anion Gap 8 (7-16); BUN/Creatinine Ratio 14 Ratio (12-20); Blood Urea Nitrogen 13 mg/dL (9-23); Calcium 8.0 mg/dL (8.3-10.6); Carbon Dioxide 28.1 mMol/L (20.0-31.0); Cardiac Risk Estimate 5.2 RATIO (4.0-6.7); Chloride 97 mMol/L (98-107); Cholesterol 93 mg/dL (132-200); Creatinine (Component) 0.9 mg/dL (0.6-1.3); Estimated Creatinine Clearance 97.0 mL/min (>60); Glucose 186 mg/dL (74-106); HDL Cholesterol 18 mg/dL (40-60); LDL Cholesterol,Calculated 56 mg/dL (0-130); Magnesium 1.2 mg/dL (1.6-2.6); Osmolality,Calculated 271 (275-295); Phosphorous 2.5 mg/dL (2.4-5.1); Potassium 3.9 mMol/L (3.4-5.1); Sodium 133 mMol/L (136-145); Thyroid Stimulating Hormone 1.43 uIU/mL (0.55-4.78); Triglycerides 94 mg/dL (30-150); eGFR > 60 See Note
[2025-02-11 07:47] LABS: Glucose Estimated Average 171 mg/dL (80-131); Hemoglobin A1C 7.6 % Hgb (4.8-6.0)
[2025-02-11] MEDS: INSULIN GLARGINE (Lantus) 5 UNIT/0.05 ML (PER 5 UNITS) 20 UNIT SC (08:46)
[2025-02-11] MEDS: Magnesium Sulfate 4 GM Ivpb 4 GM/50 ML BAG IV (09:00)
[2025-02-11] MEDS: HEPARIN SOD INJ 5000 UNIT/ML VIAL SC (09:01)
--- NOTE | 2025-02-11 09:07 | PD.RESPRO ---
Documentation for date of: 02/11/25 Subjective Subjective Interval history: No acute overnight events. Seen and examined at bedside and patient laying comfortably in bed stating that he has no pain, fever, chills, nausea or vomiting. Noted to have a fever in the geographic information scientist of 101.2 ?F but white count has improved from 22 to 17. Hemoglobin dropped from 10 to 9 but likely due to IVF. CHEM panel showed improved sodium to 133 after improved blood sugar control, K 3.9, DOT resolved, A1c 7.6%, magnesium 1.2 and repleted. Will continue with vancomycin and Zosyn and general surgery to plan for amputation of right hallux after improved infection control. Exam Vital Signs Temp Pulse Resp BP Pulse Ox O2 Del Method O2 Flow Rate 99.3 F 99 20 97/61 98 Room Air 4 02/11/25 08:00 02/11/25 08:00 02/11/25 08:00 02/11/25 08:00 02/11/25 08:00 02/11/25 08:00 02/10/25 18:00 Narrative Exam General: AOx3, no acute distress, difficult to understand/dysarthric HEENT: Poor dentition, NC/AT, mucous membranes moist, bilateral sclera anicteric Cardiovascular: regular rate and rhythm, S1/S2 present, no murmurs appreciated Pulmonary: clear to auscultation bilaterally, no rales/rhonchi/wheezes Abdominal: soft, non-tender, non-distended, no rebound/guarding, normal bowel sounds present Musculoskeletal: normal ROM, no peripheral edema Skin: Right lower extremity wrapped, hallux with necrotic tissue draining blood and maggots present with associated foul smell Neuro: CN II-XII intact, no focal deficits Objective Labs 02/11/25 05:59 02/11/25 05:59 Labs: Laboratory Results - last 24 hr 02/10/25 02/10/25 02/10/25 11:36 12:03 12:33 WBC 22.4 H RBC 3.34 L Hgb 10.1 L Hct 29.8 L MCV 89 MCH 30.2 MCHC 33.9 RDW Std Deviation 39.3 Plt Count 358 Neut % (Auto) 91 H Lymph % (Auto) 3 L [place] % (Auto) 6 Eos % (Auto) 0 Baso % (Auto) 0 Neut # (Auto) 20.3 H Lymph # (Auto) 0.7 L [place] # (Auto) 1.2 H Eos # (Auto) 0.0 Baso # (Auto) 0.1 Immature Gran # (Auto) 0.13 H Absolute Nucleated RBC 0.00 Immature Gran % 1 H Nucleated RBC % 0 PT INR APTT Sodium 129 L Potassium 5.0 Chloride 92 L Carbon Dioxide 27.2 Anion Gap 10 BUN 20 Creatinine 1.4 H Estim Creat Clear Calc 62.4 eGFR > 60 BUN/Creatinine Ratio [address]ucose [address] Glu mg/dL Hemoglobin A1c Calculated Osmolality 276 Lactic Acid 1.5 Calcium 9.4 Corrected Calcium 9.6 Phosphorus Magnesium Total Bilirubin 0.5 AST 16 ALT 12 Alkaline Phosphatase 97 Total Protein 8.3 H Albumin 3.8 Globulin 4.5 H Albumin/Globulin Ratio 0.8 L Triglycerides Cholesterol LDL Cholesterol, Calc HDL Cholesterol Cholesterol/HDL Ratio Lipase 24 Beta-Hydroxybutyrate/Acetoacetate 0.1 TSH Ur Collection Type Voided Urine Color Yellow Urine Clarity Turbid A Urine pH 6.0 Ur Specific [place] 1.028 Urine Protein 2+ A Urine Glucose (UA) 4+ A Urine Ketones Negative Urine Blood Negative Urine Nitrite Negative Urine Bilirubin Negative Urine Urobilinogen (Auto) 2.0 Ur Leukocyte Esterase Negative Urine RBC 2 Urine WBC 7 H Ur Squamous Epith Cells < 1 Ur Transition Epith Cell 1 Amorphous Crystals Present A Urine Bacteria Rare Hyaline Casts < 1 Granular Casts 1 Urine Opiates Screen Urine Fentanyl Screen Ur Barbiturates Screen U Amphetamin/Meth Scrn U Benzodiazepines Scrn U Cocaine Metab Screen U Marijuana (THC) Screen 02/10/25 02/11/25 18:40 05:59 WBC 17.2 H D RBC 2.95 L Hgb 8.9 L Hct 26.6 L MCV 90 MCH 30.2 MCHC 33.5 RDW Std Deviation 39.5 Plt Count 297 D Neut % (Auto) 86 H Lymph % (Auto) 7 L [place] % (Auto) 6 Eos % (Auto) 0 Baso % (Auto) 0 Neut # (Auto) 14.7 H Lymph # (Auto) 1.2 [place] # (Auto) 1.1 H Eos # (Auto) 0.1 Baso # (Auto) 0.0 Immature Gran # (Auto) 0.09 H Absolute Nucleated RBC 0.00 Immature Gran % 1 H Nucleated RBC % 0 PT 12.2 INR 1.1 APTT 34.5 Sodium 133 L Potassium 3.9 D Chloride 97 L Carbon Dioxide 28.1 Anion Gap 8 BUN 13 Creatinine 0.9 D Estim Creat Clear Calc 97.0 eGFR > 60 BUN/Creatinine Ratio 14 Glucose [address] Glu mg/dL 171 H Hemoglobin A1c 7.6 H Calculated Osmolality 271 L Lactic Acid Calcium 8.0 L Corrected Calcium Phosphorus 2.5 Magnesium 1.2 L Total Bilirubin AST ALT Alkaline Phosphatase Total Protein Albumin Globulin Albumin/Globulin Ratio Triglycerides 94 Cholesterol 93 L LDL Cholesterol, Calc 56 HDL Cholesterol 18 L Cholesterol/HDL Ratio 5.2 Lipase Beta-Hydroxybutyrate/Acetoacetate TSH 1.43 Ur Collection Type Urine Color Urine Clarity Urine pH Ur Specific [place] Urine Protein Urine Glucose (UA) Urine Ketones Urine Blood Urine Nitrite Urine Bilirubin Urine Urobilinogen (Auto) Ur Leukocyte Esterase Urine RBC Urine WBC Ur Squamous Epith Cells Ur Transition Epith Cell Amorphous Crystals Urine Bacteria Hyaline Casts Granular Casts Urine Opiates Screen Positive A Urine Fentanyl Screen Negative Ur Barbiturates Screen Negative U Amphetamin/Meth Scrn Positive A U Benzodiazepines Scrn Negative U Cocaine Metab Screen Negative U Marijuana (THC) Screen Negative Quality Measures Quality Measures VTE prophylaxis Assessment & Plan Assessment Current Active Medications: Generic Name Dose Route Start Last Admin Trade Name Freq PRN Reason Stop Dose Admin Acetaminophen 650 mg 02/10/25 17:06 02/11/25 05:24 Acetaminophen 325 Mg Tablet PO 03/12/25 17:05 650 mg Q6H PRN Administration PAIN OR FEVER > 100.4 Dextrose 25 ml 02/10/25 17:11 Dextrose 50%-Water Inj 50 Ml Syringe IV 03/12/25 17:10 Q15MIN PRN BG 50-70 responsive npo pt Dextrose 50 ml 02/10/25 17:11 Dextrose 50%-Water Inj 50 Ml Syringe IV 03/12/25 17:10 Q15MIN PRN BG <50 OR BG <70 & pt unresponsive Glucagon 1 mg 02/10/25 17:11 Glucagon Inj 1 Mg Vial IM Q15MIN PRN BG <70, and no IV access Heparin Sodium (Porcine) 5,000 unit 02/10/25 21:00 02/10/25 21:09 Heparin Sod Inj 5000 Unit/Ml Vial SC 02/24/25 20:59 5,000 unit BID [facility] Administration Sodium Chloride 1,000 mls @ 75 mls/hr 02/10/25 17:15 02/10/25 19:21 Ns IV 03/12/25 17:14 75 mls/hr .[id number] [facility] Administration Piperacillin/Tazobactam/Dextrose 3.375 gm in 50 mls @ 12.5 mls/hr 02/10/25 22:00 02/11/25 05:22 Zosyn IV 02/17/25 21:59 12.5 mls/hr Q8HR [facility] Administration Vancomycin/Sodium Chloride 200 mls @ 120 mls/hr 02/11/25 10:00 Vancomycin/Ns 1 Gm Ivpb IV 02/18/25 09:59 Q12H [facility] Magnesium Sulfate 4 gm in 50 mls @ 12.5 mls/hr 02/11/25 07:24 Magnesium Sulfate Ivpb IV 02/11/25 11:23 X1 ONE Insulin Glargine 20 unit 02/11/25 09:00 Insulin Glargine (Lantus) 5 Unit/0.05 Ml (Per 5 Units) SC 03/13/25 08:59 QDAY [facility] Insulin Human Lispro 0 unit 02/10/25 18:00 02/11/25 06:08 Insulin Lispro (Admelog) 1 Unit/0.01 Ml Unit SC 03/12/25 17:59 1 unit Q6HR [facility] Administration Protocol Morphine Sulfate 1 mg 02/11/25 08:08 Morphine Sulf Inj 10 Mg/Ml Vial IVP 02/15/25 17:05 Q4H PRN PAIN SCALE 4-10(Mod-Sev Ondansetron HCl 4 mg 02/10/25 17:06 Ondansetron Inj 2 Mg/Ml Inj 2 Ml IVP 03/12/25 17:05 Q6H PRN NAUSEA OR VOMITING Protocol Pantoprazole Sodium 40 mg 02/11/25 09:00 Pantoprazole Inj 40 Mg Vial IVP 03/13/25 08:59 QDAY [facility] Pharmacy Consult 1 each 02/11/25 09:00 Vancomycin Pharmacy To Dose 1 Each Each IV 03/13/25 08:59 QDAY PRN PROTOCOL Quetiapine Fumarate 25 mg 02/10/25 21:00 02/10/25 21:09 Quetiapine Fumarate 25 Mg Tablet PO 03/12/25 20:59 25 mg HS [facility] Administration Plan Jaya Starr is a homeless 49-year-old male with a past medical history of CVA in 2022 and insulin-dependent type 2 diabetes mellitus who is admitted for right hallux osteomyelitis and DOT. #Sepsis secondary to right hallux osteomyelitis, resolved #Wet gangrene of right hallux Presents with necrotic, foul-smelling, draining tissue with maggots present on the right hallux. No fever or chills but has had some nausea and vomiting. ED, temperature 100.9 ?F, HR 139, leukocytosis of 22.4, and endorgan damage evidenced by DOT with creatinine 1.4 (baseline 1.0). Patient also has a history of uncontrolled diabetes mellitus which is likely contributing to severity of infection. Patient states that he is homeless and has not taken medications in years. CXR if right foot showed erosions distal aspect distal phalanx right first digit with soft tissue swelling. ? General Surgery consulted, appreciate recommendations ? Vancomycin and Zosyn (02/10-) ? Wound culture 02/10: growing GPC and GNR ? Blood culture 02/10: Pending ? Wound care ? N.p.o. after midnight ? NS at 75 cc/h #Acute kidney injury, resolved #Right-sided pyelonephritis as seen on imaging Denies any urinary symptoms and no CVA tenderness on exam. UA showed 7 WBC but rare bacteria only. ? Follow-up urine culture ? Vancomycin and Zosyn as above ? NS at 75 cc/h ? Avoid nephrotoxic agents when possible, renally dose medications #Type 2 diabetes mellitus, insulin-dependent #Pseudohyponatremia A1c in 2022 with 10.5 and was 16.1 in 2020. Has not taken medications in many years. A1c this admission 7.6%. ? Glargine 20 units daily ? SSI ? Hypoglycemic protocol placed #Methamphetamine use #Homelessness Urine toxicology positive for opiates and amphetamine. ? Referral to social science manager ? Follow-up echo to evaluate for possible side effects of methamphetamine use #History of stroke in 2022 Large acute infarct right frontoparietal lobe per MRI. Given that patient will likely undergo procedure, will hold antiplatelets at this time. Lipid panel showed TG 94, cholesterol 93, LDL 56, HDL 18. Hospital management: Disposition: Pending surgery, IV antibiotics, cultures Fluids: NS at 75 cc/h Diet: Carb consistent low, n.p.o. after midnight Lines: PIV DVT prophylaxis: Heparin SC BID GI prophylaxis: PPI CODE STATUS: full code ----- Plan discussed with attending physician Dr. Johan Brannon MD PGY-1 Internal Medicine Attending Provider Attestation/Addendum I attest that I was physically present for the evaluation, physical examination, lab and imaging review of the patient with the residents. I discussed the case with the residents and agree with the findings and plans of care as documented above. At bedside today, patient was sleeping comfortably and denied any complaints. Had an episode of fever this morning, temperature of 101.2 ?F. WBC count is improving, 17.2 today from 22.4 yesterday. Continues to be on broad-spectrum antibiotics, IV vancomycin and Zosyn. General surgery following closely, recommended to continue IV antibiotics for now, appreciate recommendations. Noted to have glucose of 186, A1c 7.6, glargine dosing increased to 20 from 15 yesterday. Right foot is wrapped in dressing at bedside, dressing appears dry. Wound care on board. Magnesium level was 1.2 this morning, repleted accordingly. Awaiting culture results. Karol Prado MD
[2025-02-11] MEDS: VANCOMYCIN/NS 1 GM IVPB 200 ML IV ×2 (10:31→21:32)
[2025-02-11] MEDS: SOD HYPOCHLORITE 1/2 STR 473 ML BTL IRRIG ×3 (11:00→21:32)
--- NOTE | 2025-02-11 11:39 | PC.SS ---
Rounding: on IV ABX, Dr. Yeung following
[2025-02-11] MEDS: SODIUM CHLORIDE 0.9% 1000 ML 1,000 ML 75 ML IV (12:35)
--- NOTE | 2025-02-11 15:13 | PD.SURPROG ---
Documentation for date of: 02/11/25 Subjective Subjective Brief History: Patient is a homeless man and cannot give any definite history. He does not seem to be concerned about his health. He has developed some ulcer 2 weeks ago and now it has become gangrene over the right great toe. Patient does not have any pain but there were maggots on his foot. Patient also has a history of diabetes mellitus which is poorly controlled. He has maggots in his right foot Narrative: Patient is being cleaned of any maggots from his right great toe. He does not have any complaints. Exam Vital Signs Temp Pulse Resp BP Pulse Ox O2 Del Method O2 Flow Rate 99.2 F 92 17 95/72 98 Room Air 4 02/11/25 12:00 02/11/25 12:00 02/11/25 12:00 02/11/25 12:00 02/11/25 12:00 02/11/25 12:00 02/10/25 18:00 His vital signs are normal Results Results: Laboratory Laboratory Narrative: Laboratory tests show improvement in his glucose and sodium Assessment & Plan Assessment Additional comments: Impression: Gangrene right great toe with osteomyelitis Plan Plan: Will arrange for amputation once the patient stabilizes with blood sugar and sodium level
--- NOTE | 2025-02-11 15:24 | PC.SS ---
SS attempted to meet with pt to complete initial assessment, pt refused to speak to SS, stating he is sleeping to come back. SS will reattempt at a later time.
--- NOTE | 2025-02-11 15:31 | PC.SS ---
In attempt to complete initial assessment contacted pt friend Juliana Worthyjessica [phone], no answer. VM left.
--- NOTE | 2025-02-11 17:09 | ECHO_ITS ---
Transthoracic Echo Report Ht (in): 69 Wt (lb): 155 Exam Location: Echo Lab Status: Inpatient Tissue Recovery Technician: Christina Ruth Indications: Procedure Performed: BP: 95 / 72 HR: 117 Technical Quality: Technically Difficult-Pt Uncooperative MEASUREMENTS (Male / Female) Normal Values 2D ECHO LV Diastolic Diameter PLAX 4.5 cm 4.2 - 5.9 / 3.9 - 5.3 cm LV Systolic Diameter PLAX 3.6 cm IVS Diastolic Thickness 1.0 cm 0.6 - 1.0 / 0.6 - 0.9 cm LVPW Diastolic Thickness 1.2 cm 0.6 - 1.0 / 0.6 - 0.9 cm LV Relative Wall Thickness 0.5 LVOT Diameter 2.0 cm LA Volume Index 30.6 cm?/m? 16 - 28 cm?/m? Ascending Aorta Diameter 2.9 cm DOPPLER AV Peak Velocity 122.0 cm/s AV Peak Gradient 6.0 mmHg LVOT Peak Velocity 90.7 cm/s LVOT Peak Gradient 3.3 mmHg AV Area Cont Eq pk 2.3 cm? MV Area PHT 3.6 cm? Mitral E Point Velocity 75.2 cm/s Mitral A Point Velocity 73.2 cm/s Mitral E to A Ratio 1.0 LV E' Lateral Velocity 12.8 cm/s Mitral E to LV E' Lateral Ratio 5.9 LV E' Septal Velocity 7.2 cm/s Mitral E to LV E' Septal Ratio 10.5 PV Peak Velocity 95.0 cm/s PV Peak Gradient 3.6 mmHg FINDINGS Left Ventricle Normal left ventricular size, wall thickness, systolic function with no obvious regional wall motion abnormalities. Normal left ventricular diastolic filling pattern for age. The ejection fraction is visually estimated at 55 %. Right Ventricle The right ventricle is normal in size and systolic function. The estimated right ventricular systolic pressure can not be determined due to innadequate Doppler signal. Left Atrium The left atrium is normal by two-dimensional, color flow and Doppler imaging with no structural abnormalities, no thrombus formation present. Right Atrium The right atrium is normal by two-dimensional imaging, color flow and Doppler imaging with no structural abnormalities, no thrombus formation present. Atrial Septum The interatrial septum appears normal with no evidence of a shunt. Aorta The aorta is normal by two-dimensional, color flow and Doppler interrogation. Mitral Valve The mitral valve annulus is mildly calcified. There is trace mitral regurgitation. Aortic Valve The aortic valve is trileaflet and normal by two-dimensional, color flow and Doppler interrogation. There is no significant aortic valve regurgitation. Tricuspid Valve The tricuspid valve is normal by two-dimensional, color flow and Doppler interrogation. There is trace tricuspid regurgitation. Pulmonic Valve The pulmonic valve is not well visualized. There is no significant pulmonic valve regurgitation. Vessels The pulmonary artery appears normal. The inferior vena cava is not visualized. Pericardium The pericardium is normal by two-dimensional imaging. There is no significant pericardial effusion. CONCLUSIONS Indications: SOB,Assess for Heart Failure;History of Meth Use LV size and function normal. Estimated EF 55-60%%. Normal Diastolic function. RV Normal size and function. Normal RVSP Trace MR, TR. No pericardial effusion. Corwin Carney (Electronically Signed) Final Date: 12 February 2025 10:54
[2025-02-12] VITALS (8 sets, daily range): BP systolic 103–138; BP diastolic 69–78; PULSE 98–119; RESP 18–21; TEMP 36.3–36.8; O2SAT 96–99; BMI 23.1
[2025-02-12] MEDS: SODIUM CHLORIDE 0.9% 1000 ML 1,000 ML 75 ML IV (05:03)
[2025-02-12] MEDS: PIPER/TAZO 3.375 GM PREMIX 3.375 GM/50 ML BAG IV ×3 (05:03→21:19)
[2025-02-12 06:13] LABS: Basophils # (Auto) 0.0 Thou/mm3 (0.0-0.2); Basophils % (Auto) 0 % (0-2.5); Eosinophils # (Auto) 0.1 Thou/mm3 (0.0-0.5); Eosinophils % (Auto) 1 % (0-10); Hematocrit 25.9 % (41.0-53.0); Immature Granulocytes Auto 0.05 Thou/mm3 (0.00-0.00); Lymphocytes # (Auto) 1.1 Thou/mm3 (1.0-4.8); Lymphocytes % (Auto) 8 % (10-50); Mean Corpuscular HGB Conc 34.0 g/dl (31.0-37.0); Mean Corpuscular Hemoglobin 29.7 pg (25.0-35.0); Mean Corpuscular Volume 88 fL (80-100); Monocytes # (Auto) 1.0 Thou/mm3 (0.0-0.8); Monocytes % (Auto) 7 % (0-12); Neutrophils # (Auto) 11.3 Thou/mm3 (1.8-7.7); Neutrophils % (Auto) 83 % (37-80); Nucleated Red Blood Cell # 0.00 Thou/mm3 (0.00-0.00); Nucleated Red Blood Cell % 0 /100 WBC (0); Platelet Count 319 Thou/mm3 (140-440); RDW Standard Deviation 39.5 fL (35.1-43.9); Red Blood Count 2.96 Miln/mm3 (4.50-5.90); White Blood Count 13.5 Thou/mm3 (3.8-10.6)
[2025-02-12 06:20] LABS: Hemoglobin 8.8 g/dL (13.5-16.0)
[2025-02-12 06:28] LABS: Anion Gap 7 (7-16); BUN/Creatinine Ratio 9 Ratio (12-20); Blood Urea Nitrogen 8 mg/dL (9-23); Calcium 7.8 mg/dL (8.3-10.6); Carbon Dioxide 29.7 mMol/L (20.0-31.0); Chloride 97 mMol/L (98-107); Creatinine (Component) 0.9 mg/dL (0.6-1.3); Estimated Creatinine Clearance 97.1 mL/min (>60); Glucose 236 mg/dL (74-106); Magnesium 1.4 mg/dL (1.6-2.6); Osmolality,Calculated 274 (275-295); Phosphorous 3.1 mg/dL (2.4-5.1); Potassium 3.8 mMol/L (3.4-5.1); Sodium 134 mMol/L (136-145); eGFR > 60 See Note
[2025-02-12] MEDS: INSULIN LISPRO (AdmeLOG) 1 UNIT/0.01 ML UNIT 2 UNIT SC ×4 (07:43→21:36)
[2025-02-12] MEDS: INSULIN LISPRO (AdmeLOG) 1 UNIT/0.01 ML UNIT SC ×3 (08:00→21:37)
[2025-02-12] MEDS: INSULIN GLARGINE (Lantus) 5 UNIT/0.05 ML (PER 5 UNITS) 25 UNIT SC (08:00)
[2025-02-12] MEDS: Magnesium Sulfate 2 GM Ivpb 2 GM/50 ML BAG IV (08:01)
[2025-02-12] MEDS: SOD HYPOCHLORITE 1/2 STR 473 ML BTL IRRIG ×2 (08:02→21:19)
[2025-02-12] MEDS: HEPARIN SOD INJ 5000 UNIT/ML VIAL SC ×2 (08:02→21:37)
--- NOTE | 2025-02-12 09:05 | PC.SS ---
Patient Jaya Clements is a 49 Year old male admitted for Osteomyelitis. SS met with patient at bedside to discuss discharge plan and verify demographic information, patient appeared to be alert and oriented to time,place and situation. he reports he lives out in the community. He reports his friend, Juliana Kwokfranck is patient's surrogate decision maker, [phone]. When SS asked if it was the right number, patient reported he did not remember, SS inquired about listing someone else, and patient reported he did not have anyone else. Patient reports he does not utilize any source of DME to assist with ambulation. Patient is able to complete all ADL's independently. Choice of pharmacy is [facility]. Patient reports he does not have PCP. At time of discharge patient will return back to the community, SS inquired about him discharging to a Jail, patient refused and expressed he would like to discharge to the community. Next of kin: Friend Juliana Burroughs, [phone] Discharge Plan: Community
[2025-02-12 10:04] LABS: Vancomycin,Trough 12.8 mcg/mL (5.0-10.0)
--- NOTE | 2025-02-12 10:30 | PD.RESPRO ---
Documentation for date of: 02/12/25 Subjective Subjective Interval history: No acute overnight events. Seen and examined at bedside and denies any fever, chills, N/V, or pain in his foot. States that he would like to rest. HR 101 but other vital signs stable, leukocytosis improving from 17 to 13, hemoglobin stable at 8.8, magnesium low and repleted, glucose 236. Glargine increased from 20 to 25 and added lispor 2 units TIDWM. Surgery likely to be done tomorrow and will continue with vancomycin and zosyn and follow-up cultures. Exam Vital Signs Temp Pulse Resp BP Pulse Ox O2 Del Method O2 Flow Rate 98.3 F 101 H 21 H 130/69 98 Room Air 4 02/12/25 07:39 02/12/25 07:39 02/12/25 07:39 02/12/25 07:39 02/12/25 07:39 02/12/25 07:39 02/10/25 18:00 Narrative Exam General: AOx3, no acute distress, difficult to understand/dysarthric HEENT: Poor dentition, NC/AT, mucous membranes moist, bilateral sclera anicteric Cardiovascular: regular rate and rhythm, S1/S2 present, no murmurs appreciated Pulmonary: clear to auscultation bilaterally, no rales/rhonchi/wheezes Abdominal: soft, non-tender, non-distended, no rebound/guarding, normal bowel sounds present Musculoskeletal: normal ROM, no peripheral edema Skin: Right lower extremity wrapped, hallux with necrotic tissue draining blood and maggots present with associated foul smell Neuro: CN II-XII intact, no focal deficits Objective Labs 02/13/25 05:07 02/13/25 05:07 Labs: Laboratory Results - last 24 hr 02/12/25 02/12/25 05:18 09:20 WBC 13.5 H RBC 2.96 L Hgb 8.8 L Hct 25.9 L MCV 88 MCH 29.7 MCHC 34.0 RDW Std Deviation 39.5 Plt Count 319 Neut % (Auto) 83 H Lymph % (Auto) 8 L Williams % (Auto) 7 Eos % (Auto) 1 Baso % (Auto) 0 Neut # (Auto) 11.3 H Lymph # (Auto) 1.1 Williams # (Auto) 1.0 H Eos # (Auto) 0.1 Baso # (Auto) 0.0 Immature Gran # (Auto) 0.05 H Absolute Nucleated RBC 0.00 Immature Gran % 0 Nucleated RBC % 0 Sodium 134 L Potassium 3.8 Chloride 97 L Carbon Dioxide 29.7 Anion Gap 7 BUN 8 L Creatinine 0.9 Estim Creat Clear Calc 97.1 eGFR > 60 BUN/Creatinine Ratio 9 L Glucose 236 H D Calculated Osmolality 274 L Calcium 7.8 L Phosphorus 3.1 Magnesium 1.4 L Vancomycin Trough 12.8 H Quality Measures Quality Measures VTE prophylaxis Assessment & Plan Assessment Current Active Medications: Generic Name Dose Route Start Last Admin Trade Name Freq PRN Reason Stop Dose Admin Acetaminophen 650 mg 02/10/25 17:06 02/11/25 05:24 Acetaminophen 325 Mg Tablet PO 03/12/25 17:05 650 mg Q6H PRN Administration PAIN OR FEVER > 100.4 Dextrose 25 ml 02/10/25 17:11 Dextrose 50%-Water Inj 50 Ml Syringe IV 03/12/25 17:10 Q15MIN PRN BG 50-70 responsive npo pt Dextrose 50 ml 02/10/25 17:11 Dextrose 50%-Water Inj 50 Ml Syringe IV 03/12/25 17:10 Q15MIN PRN BG <50 OR BG <70 & pt unresponsive Glucagon 1 mg 02/10/25 17:11 Glucagon Inj 1 Mg Vial IM Q15MIN PRN BG <70, and no IV access Heparin Sodium (Porcine) 5,000 unit 02/10/25 21:00 02/12/25 08:02 Heparin Sod Inj 5000 Unit/Ml Vial SC 02/24/25 20:59 5,000 unit BID CHAUNCEY Administration Sodium Chloride 1,000 mls @ 75 mls/hr 02/10/25 17:15 02/12/25 05:03 Ns IV 03/12/25 17:14 75 mls/hr .[id number] CHAUNCEY Administration Piperacillin/Tazobactam/Dextrose 3.375 gm in 50 mls @ 12.5 mls/hr 02/10/25 22:00 02/12/25 05:03 Zosyn IV 02/17/25 21:59 12.5 mls/hr Q8HR CHAUNCEY Administration Vancomycin HCl 250 mls @ 120 mls/hr 02/12/25 10:30 Vancomycin/Water 1250 Mg Ivpb IV 02/19/25 10:29 BID@1000,2200 CHAUNCEY Insulin Glargine 25 unit 02/12/25 09:00 02/12/25 08:00 Insulin Glargine (Lantus) 5 Unit/0.05 Ml (Per 5 Units) SC 03/14/25 08:59 25 unit QDAY CHAUNCEY Administration Insulin Human Lispro 2 unit 02/12/25 07:30 02/12/25 07:43 Insulin Lispro (Admelog) 1 Unit/0.01 Ml Unit SC 03/14/25 07:29 2 unit ACHS CHAUNCEY Administration Insulin Human Lispro 0 unit 02/12/25 08:00 02/12/25 08:00 Insulin Lispro (Admelog) 1 Unit/0.01 Ml Unit SC 03/14/25 07:59 4 unit ACHS CHAUNCEY Administration Protocol Morphine Sulfate 1 mg 02/11/25 08:08 Morphine Sulf Inj 10 Mg/Ml Vial IVP 02/15/25 17:05 Q4H PRN PAIN SCALE 4-10(Mod-Sev Ondansetron HCl 4 mg 02/10/25 17:06 Ondansetron Inj 2 Mg/Ml Inj 2 Ml IVP 03/12/25 17:05 Q6H PRN NAUSEA OR VOMITING Protocol Pantoprazole Sodium 40 mg 02/11/25 09:00 02/12/25 08:01 Pantoprazole Inj 40 Mg Vial IVP 03/13/25 08:59 40 mg QDAY CHAUNCEY Administration Pharmacy Consult 1 each 02/11/25 09:00 Vancomycin Pharmacy To Dose 1 Each Each IV 03/13/25 08:59 QDAY PRN PROTOCOL Quetiapine Fumarate 25 mg 02/10/25 21:00 02/11/25 21:32 Quetiapine Fumarate 25 Mg Tablet PO 03/12/25 20:59 25 mg HS CHAUNCEY Administration Sodium Hypochlorite 0 ml 02/11/25 12:15 02/12/25 08:02 Sod Hypochlorite 1/2 Str 473 Ml Btl IRRIG 03/13/25 12:14 473 ml BID CHAUNCEY Administration Plan Jaya Clements is a homeless 49-year-old male with a past medical history of CVA in 2022 and insulin-dependent type 2 diabetes mellitus who is admitted for right hallux osteomyelitis and DOT. #Sepsis secondary to right hallux osteomyelitis, resolved #Wet gangrene of right hallux Presents with necrotic, foul-smelling, draining tissue with maggots present on the right hallux. No fever or chills but has had some nausea and vomiting. ED, temperature 100.9 ?F, HR 139, leukocytosis of 22.4, and endorgan damage evidenced by DOT with creatinine 1.4 (baseline 1.0). Patient also has a history of uncontrolled diabetes mellitus which is likely contributing to severity of infection. Patient states that he is homeless and has not taken medications in years. CXR if right foot showed erosions distal aspect distal phalanx right first digit with soft tissue swelling. ? General Surgery consulted, appreciate recommendations ? Vancomycin and Zosyn (02/10-) ? Wound culture 02/10: growing GPC and GNR ? Blood culture 02/10: Pending ? Wound care BID ? NS at 75 cc/h #Acute kidney injury, resolved #Right-sided pyelonephritis as seen on imaging Denies any urinary symptoms and no CVA tenderness on exam. UA showed 7 WBC but rare bacteria only. ? Follow-up urine culture ? Vancomycin and Zosyn as above ? NS at 75 cc/h ? Avoid nephrotoxic agents when possible, renally dose medications #Type 2 diabetes mellitus, insulin-dependent #Pseudohyponatremia A1c in 2022 with 10.5 and was 16.1 in 2020. Has not taken medications in many years. A1c this admission 7.6%. ? Glargine 25 units daily, lispro 2 units TIDWM ? SSI ? Hypoglycemic protocol placed #Methamphetamine use #Homelessness Urine toxicology positive for opiates and amphetamine. ? Referral to social media intern ? Follow-up echo to evaluate for possible side effects of methamphetamine use #History of stroke in 2022 Large acute infarct right frontoparietal lobe per MRI. Given that patient will likely undergo procedure, will hold antiplatelets at this time. Lipid panel showed TG 94, cholesterol 93, LDL 56, HDL 18. Hospital management: Disposition: Pending surgery, IV antibiotics, cultures Fluids: NS at 75 cc/h Diet: Carb consistent low Lines: PIV DVT prophylaxis: Heparin SC BID GI prophylaxis: PPI CODE STATUS: full code ----- Plan discussed with attending physician Dr. Marjorie Brannon MD PGY-1 Internal Medicine Attending Provider Attestation/Addendum I have examined the patient, reviewed labs and imaging findings, discussed the case with the resident(s), and reviewed entered orders. I agree with the plan of care as outlined in this note, with these additional summaries/recommendations: Patient seen at bedside. No acute overnight events. Patient has no acute complaints today and appears uninterested in providing history or talking. He reports he is in the hospital because something is wrong with his foot. He also endorses being homeless and having no social support. Consult social media intern for complex social issues. Patient admitted for gangrene/osteomyelitis of distal phalanx right foot first digit. Continue IV antibiotics and blood cultures show no growth at 48 hours. Superficial wound culture was taken which is growing Proteus mirabilis although likely not a reliable culture result. Continue wound care. General surgery following with plans for surgical intervention. Continue insulin sliding scale with Accu-Cheks for diabetes mellitus type 2. Target blood sugar of 140-180 while hospitalized. Patient has history of CVA in 2022 and will resume aspirin after surgical intervention. Patient updated on the plan and agreement. All questions answered to satisfaction. Please see residents note for additional details and management. Dr. Marjorie MD
[2025-02-12] MEDS: VANCOMYCIN/WATER 1250 MG IVPB 250 ML 120 MG IV ×2 (11:00→21:18)
--- NOTE | 2025-02-12 15:51 | PC.SS ---
SS follow up note; Patient is on IV ABX, Dr. Yeung following patient. SS will follow up with patient in regards to discharge planning if patient gets amputation.
[2025-02-13] VITALS (11 sets, daily range): BP systolic 97–139; BP diastolic 65–83; PULSE 94–118; RESP 12–25; TEMP 36.1–37.3; O2SAT 93–100; BMI 22.6
[2025-02-13] MEDS: PIPER/TAZO 3.375 GM PREMIX 3.375 GM/50 ML BAG IV ×3 (05:11→21:15)
[2025-02-13] MEDS: INSULIN LISPRO (AdmeLOG) 1 UNIT/0.01 ML UNIT SC ×2 (05:18→23:17)
[2025-02-13 05:45] LABS: Basophils # (Auto) 0.1 Thou/mm3 (0.0-0.2); Basophils % (Auto) 0 % (0-2.5); Eosinophils # (Auto) 0.1 Thou/mm3 (0.0-0.5); Eosinophils % (Auto) 0 % (0-10); Hematocrit 27.9 % (41.0-53.0); Hemoglobin 9.6 g/dL (13.5-16.0); Immature Granulocytes Auto 0.08 Thou/mm3 (0.00-0.00); Lymphocytes # (Auto) 1.4 Thou/mm3 (1.0-4.8); Lymphocytes % (Auto) 9 % (10-50); Mean Corpuscular HGB Conc 34.4 g/dl (31.0-37.0); Mean Corpuscular Hemoglobin 30.1 pg (25.0-35.0); Mean Corpuscular Volume 88 fL (80-100); Monocytes # (Auto) 1.2 Thou/mm3 (0.0-0.8); Monocytes % (Auto) 7 % (0-12); Neutrophils # (Auto) 13.8 Thou/mm3 (1.8-7.7); Neutrophils % (Auto) 83 % (37-80); Nucleated Red Blood Cell # 0.00 Thou/mm3 (0.00-0.00); Nucleated Red Blood Cell % 0 /100 WBC (0); Platelet Count 352 Thou/mm3 (140-440); RDW Standard Deviation 39.8 fL (35.1-43.9); Red Blood Count 3.19 Miln/mm3 (4.50-5.90); White Blood Count 16.6 Thou/mm3 (3.8-10.6)
[2025-02-13 06:32] LABS: Anion Gap 7 (7-16); BUN/Creatinine Ratio 10 Ratio (12-20); Blood Urea Nitrogen 10 mg/dL (9-23); Calcium 8.6 mg/dL (8.3-10.6); Carbon Dioxide 29.3 mMol/L (20.0-31.0); Chloride 95 mMol/L (98-107); Creatinine (Component) 1.0 mg/dL (0.6-1.3); Estimated Creatinine Clearance 84.6 mL/min (>60); Glucose 174 mg/dL (74-106); Magnesium 1.5 mg/dL (1.6-2.6); Osmolality,Calculated 265 (275-295); Phosphorous 4.0 mg/dL (2.4-5.1); Potassium 4.4 mMol/L (3.4-5.1); Sodium 131 mMol/L (136-145); eGFR > 60 See Note
--- NOTE | 2025-02-13 08:10 | EKG_ITS ---
[facility] Test Date: 2025-02-13 Pat Name: KEV OCONNELL [facility] Gender[facility] Male D[facility] Rn: ARIES : 1975 Requested By: Perez Brannon Order Number: [id number] Reading MD: Perez Brannon Measurements Intervals [place] Rate: 92 P: 35 MI: 144 QRS: 75 QRSD: 91 T: 8 QT: 376 QTc: 465 Interpretive Statements SINUS RHYTHM POSSIBLE INFERIOR MYOCARDIAL INFARCTION , PROBABLY OLD Compared to ECG 06/15/2023 19:55:17 Myocardial infarct finding now present T-wave abnormality no longer present /store/S0/[id number]/ecg/[id number].pdf
[2025-02-13] MEDS: PANTOPRAZOLE 40 MG TABLET PO (09:22)
[2025-02-13] MEDS: VANCOMYCIN/WATER 1250 MG IVPB 250 ML 120 MG IV ×2 (09:22→21:47)
[2025-02-13] MEDS: Magnesium Sulfate 2 GM Ivpb 2 GM/50 ML BAG IV (09:23)
[2025-02-13] MEDS: SOD HYPOCHLORITE 1/2 STR 473 ML BTL IRRIG (09:23)
--- NOTE | 2025-02-13 10:40 | PD.RESPRO ---
Documentation for date of: 02/13/25 Subjective Subjective Interval history: No acute overnight events. Seen and examined at bedside and patient does not have any complaints. Underwent metatarsophalangeal joint amputation of the right great toe and extensive debridement of necrotic tissue that occurred without complications. Will monitor for another day on antibiotics, follow-up cultures, and anticipate discharge within next 24-48 hours. Blood pressure and blood sugars well-controlled. Exam Vital Signs Temp Pulse Resp BP Pulse Ox O2 Del Method O2 Flow Rate 97.0 F 98 21 H 108/78 94 L Room Air 4 02/13/25 08:00 02/13/25 08:00 02/13/25 08:00 02/13/25 08:00 02/13/25 08:00 02/13/25 08:00 02/10/25 18:00 Narrative Exam Exam prior to procedure: General: AOx3, no acute distress, difficult to understand/dysarthric HEENT: Poor dentition, NC/AT, mucous membranes moist, bilateral sclera anicteric Cardiovascular: regular rate and rhythm, S1/S2 present, no murmurs appreciated Pulmonary: clear to auscultation bilaterally, no rales/rhonchi/wheezes Abdominal: soft, non-tender, non-distended, no rebound/guarding, normal bowel sounds present Musculoskeletal: normal ROM, no peripheral edema Skin: Right lower extremity wrapped, hallux with necrotic tissue draining blood and maggots present with associated foul smell Neuro: CN II-XII intact, no focal deficits Objective Labs 02/14/25 04:59 02/14/25 04:59 Labs: Laboratory Results - last 24 hr 02/13/25 05:07 WBC 16.6 H RBC 3.19 L Hgb 9.6 L Hct 27.9 L MCV 88 MCH 30.1 MCHC 34.4 RDW Std Deviation 39.8 Plt Count 352 D Neut % (Auto) 83 H Lymph % (Auto) 9 L Loving % (Auto) 7 Eos % (Auto) 0 Baso % (Auto) 0 Neut # (Auto) 13.8 H Lymph # (Auto) 1.4 Loving # (Auto) 1.2 H Eos # (Auto) 0.1 Baso # (Auto) 0.1 Immature Gran # (Auto) 0.08 H Absolute Nucleated RBC 0.00 Immature Gran % 1 H Nucleated RBC % 0 Sodium 131 L Potassium 4.4 D Chloride 95 L Carbon Dioxide 29.3 Anion Gap 7 BUN 10 Creatinine 1.0 Estim Creat Clear Calc 84.6 eGFR > 60 BUN/Creatinine Ratio 10 L Glucose 174 H D Calculated Osmolality 265 L Calcium 8.6 Phosphorus 4.0 Magnesium 1.5 L Quality Measures Quality Measures VTE prophylaxis Assessment & Plan Assessment Current Active Medications: Generic Name Dose Route Start Last Admin Trade Name Freq PRN Reason Stop Dose Admin Acetaminophen 650 mg 02/13/25 08:10 Acetaminophen 325 Mg Tablet PO 03/12/25 17:05 Q6H PRN PAIN 1-3 OR FEVER > 100.4 Dextrose 25 ml 02/10/25 17:11 Dextrose 50%-Water Inj 50 Ml Syringe IV 03/12/25 17:10 Q15MIN PRN BG 50-70 responsive npo pt Dextrose 50 ml 02/10/25 17:11 Dextrose 50%-Water Inj 50 Ml Syringe IV 03/12/25 17:10 Q15MIN PRN BG <50 OR BG <70 & pt unresponsive Glucagon 1 mg 02/10/25 17:11 Glucagon Inj 1 Mg Vial IM Q15MIN PRN BG <70, and no IV access Heparin Sodium (Porcine) 5,000 unit 02/10/25 21:00 02/13/25 09:20 Heparin Sod Inj 5000 Unit/Ml Vial SC 02/24/25 20:59 Not Given BID CHAUNCEY Piperacillin/Tazobactam/Dextrose 3.375 gm in 50 mls @ 12.5 mls/hr 02/10/25 22:00 02/13/25 05:11 Zosyn IV 02/17/25 21:59 12.5 mls/hr Q8HR CHAUNCEY Administration Vancomycin HCl 250 mls @ 120 mls/hr 02/12/25 10:30 02/13/25 09:22 Vancomycin/Water 1250 Mg Ivpb IV 02/19/25 10:29 120 mls/hr BID@1000,2200 CHAUNCEY Administration Protocol Insulin Glargine 30 unit 02/13/25 09:00 02/13/25 09:34 Insulin Glargine (Lantus) 5 Unit/0.05 Ml (Per 5 Units) SC 03/15/25 08:59 Not Given QDAY CHAUNCEY Insulin Human Lispro 0 unit 02/13/25 05:00 02/13/25 05:18 Insulin Lispro (Admelog) 1 Unit/0.01 Ml Unit SC 03/15/25 04:59 3 unit Q6H CHAUNCEY Administration Protocol Insulin Human Lispro 4 unit 02/13/25 11:30 Insulin Lispro (Admelog) 1 Unit/0.01 Ml Unit SC 03/15/25 11:29 ACHS CHAUNCEY Morphine Sulfate 1 mg 02/11/25 08:08 Morphine Sulf Inj 10 Mg/Ml Vial IVP 02/15/25 17:05 Q4H PRN PAIN SCALE 4-10(Mod-Sev Ondansetron HCl 4 mg 02/10/25 17:06 Ondansetron Inj 2 Mg/Ml Inj 2 Ml IVP 03/12/25 17:05 Q6H PRN NAUSEA OR VOMITING Protocol Pantoprazole Sodium 40 mg 02/13/25 09:00 02/13/25 09:22 Pantoprazole 40 Mg Tablet PO 03/15/25 08:59 40 mg QDAY CHAUNCEY Administration Pharmacy Consult 1 each 02/11/25 09:00 Vancomycin Pharmacy To Dose 1 Each Each IV 03/13/25 08:59 QDAY PRN PROTOCOL Quetiapine Fumarate 25 mg 02/10/25 21:00 02/12/25 21:20 Quetiapine Fumarate 25 Mg Tablet PO 03/12/25 20:59 25 mg HS CHAUNCEY Administration Sodium Hypochlorite 0 ml 02/11/25 12:15 02/13/25 09:23 Sod Hypochlorite 1/2 Str 473 Ml Btl IRRIG 03/13/25 12:14 473 ml BID CHAUNCEY Administration Plan Jaya Clements is a homeless 49-year-old male with a past medical history of CVA in 2022 and insulin-dependent type 2 diabetes mellitus who is admitted for right hallux osteomyelitis and DOT. #Sepsis secondary to right hallux osteomyelitis, resolved #Gangrene of right hallux, s/p MTP amputation and debridement Presents with necrotic, foul-smelling, draining tissue with maggots present on the right hallux. No fever or chills but has had some nausea and vomiting. ED, temperature 100.9 ?F, HR 139, leukocytosis of 22.4, and endorgan damage evidenced by DOT with creatinine 1.4 (baseline 1.0). Patient also has a history of uncontrolled diabetes mellitus which is likely contributing to severity of infection. Patient states that he is homeless and has not taken medications in years. CXR if right foot showed erosions distal aspect distal phalanx right first digit with soft tissue swelling. Status-post metatarsophalangeal joint amputation of the right great toe and extensive debridement of necrotic tissue that occurred without complications. ? General Surgery consulted, appreciate recommendations ? Vancomycin and Zosyn (02/10-) ? Wound culture 02/10: Proteus mirabilis ? Blood culture 02/10: NGTD ? Wound care BID #Acute kidney injury, resolved #Right-sided pyelonephritis as seen on imaging Denies any urinary symptoms and no CVA tenderness on exam. UA showed 7 WBC but rare bacteria only. ? Urine culture: no significant growth ? Vancomycin and Zosyn as above ? Avoid nephrotoxic agents when possible, renally dose medications #Type 2 diabetes mellitus, insulin-dependent #Pseudohyponatremia A1c in 2022 with 10.5 and was 16.1 in 2020. Has not taken medications in many years. A1c this admission 7.6%. ? Glargine 30 units daily, lispro 4 units TIDWM ? SSI ? Hypoglycemic protocol placed #Methamphetamine use #Homelessness Urine toxicology positive for opiates and amphetamine. Echo showed normal LV size and function, EF 55-60%, normal diastolic function. Trace MR, TR, no pericardial effusion. ? Referral to high school social studies tutor #History of stroke in 2022 Large acute infarct right frontoparietal lobe per MRI. Given that patient will likely undergo procedure, will hold antiplatelets at this time. Lipid panel showed TG 94, cholesterol 93, LDL 56, HDL 18. Hospital management: Disposition: s/p MTP amputation, on IV antibiotics Diet: Carb consistent Lines: PIV DVT prophylaxis: Heparin SC BID GI prophylaxis: PPI CODE STATUS: full code ----- Plan discussed with attending physician Dr. Marjorie Brannon MD PGY-1 Internal Medicine Attending Provider Attestation/Addendum I have examined the patient, reviewed labs and imaging findings, discussed the case with the resident(s), and reviewed entered orders. I agree with the plan of care as outlined in this note, with these additional summaries/recommendations: Patient seen at bedside. No acute overnight events. Patient admitted for gangrene/osteomyelitis of distal phalanx right foot first digit. Continue IV antibiotics and blood cultures show no growth at 48 hours. Superficial wound culture was taken which is growing Proteus mirabilis although likely not a reliable culture result. Continue wound care. General surgery following and patient will go for surgical intervention today 02/13/25. Continue insulin sliding scale with Accu-Cheks for diabetes mellitus type 2. Target blood sugar of 140-180 while hospitalized. Patient has history of CVA in 2022 and will resume aspirin after surgical intervention. manager of creative services following for complex social problems including homelessness Patient updated on the plan and agreement. All questions answered to satisfaction. Please see residents note for additional details and management. Dr. Marjorie MD
--- NOTE | 2025-02-13 11:14 | PC.SS ---
SS follow up note; On IV ABX, pending Surgery of right toe amputation. Patient will discharge to the community when medically cleared.
--- NOTE | 2025-02-13 16:30 | PD.SUROPNT ---
Date of Procedure 02/13/25 Pre Op Diagnosis Gangrene of the right great toe with osteomyelitis of the distal phalanx of the first toe Post Op Diagnosis Same Procedure Metatarsophalangeal joint amputation of the right great toe and extensive debridement of the necrotic tissue Findings Patient is found to have extensive infection over the great toe with gangrene and maggots. After the maggots were cleaned amputation was indicated Procedure Description Of the patient was brought to the operating room and a 2 g was given. The right foot was washed with Betadine solution and draped in a sterile manner. Timeout was performed. Then I made a curved racquet shaped incision over the base of the second toe they removed the necrotic gangrenous tissue. The proximal phalanx of the right great toe was still healthy but there was considerable necrotic tissue that required debridement. This could not be achieved without amputating at the metatarsophalangeal joint and removing the proximal phalanx. This was accomplished with a 10 blade knife and then the cartilage was rongeured to avoid the smooth surface. Wound was again debrided extensively to remove all the necrotic tissue and then washed with saline solution and packed with wet-to-dry fluff and Kerlix roll. Patient tolerated procedure well Anesthesia GETA Pathology / specimen Other (Amputated right) Estimated Blood Loss 5 Surgeon Melina Gonzalez MD Surgical Staff Operation Date: 02/13/25 15:15 <No data on this case meets the specified criteria>
--- NOTE | 2025-02-13 16:36 | SUR.PHASEI ---
received pt and report from ANDREW Duong and PRINCESS Moses. Pt mildy sedated, vss, dressing to right foot CDI. IV x2 in place, no s/s of infiltration or redness noted. no distress noted.
--- NOTE | 2025-02-13 16:52 | PC.SS ---
SS update: ERRAND RUNNER received a call from patient's friend: Juliana Bhandari regarding the d/c plan for the patient. Juliana informs the patient is homeless and will need SNF placement. Updated management planner via email to follow up with the patient tomorrow regarding his d/c plan.
--- NOTE | 2025-02-13 17:08 | SUR.PHASEI ---
report given PRINCESS Mejia, pt vss, dressing remains cdi to right foot. IV x2 remain free of s/s of infiltration or redness. Pt denies any pain. Pt states he is hungry. no distress noted.
--- NOTE | 2025-02-13 17:10 | SUR.PHASEI ---
rechecked dressing, pink drainage noted to dressing to right toe. drainage outlined with marker, reinforced dressing with gauze and tape.
--- NOTE | 2025-02-13 17:20 | SUR.PHASEI ---
pt tolerated the transport well no distress noted. pt transferred self from gurney to bed safely w/o assist. NOAH Alfaro present in patients room.
--- NOTE | 2025-02-13 18:02 | PC.NURSE ---
pt back from [id number] dressing CDI
[2025-02-13] MEDS: INSULIN LISPRO (AdmeLOG) 1 UNIT/0.01 ML UNIT 4 UNIT SC (21:15)
[2025-02-13 21:41] LABS: Vancomycin,Trough 14.5 mcg/mL (5.0-10.0)
[2025-02-14] VITALS: BP 96/60; PULSE 100; PULSE 99; RESP 17; TEMP 36.2; O2SAT 97
[2025-02-14 04:00] VITALS: BP 113/80; PULSE 96; PULSE 97; RESP 18; TEMP 36.4; O2SAT 97
[2025-02-14] MEDS: PIPER/TAZO 3.375 GM PREMIX 3.375 GM/50 ML BAG IV (05:22)
[2025-02-14 06:04] LABS: Basophils # (Auto) 0.0 Thou/mm3 (0.0-0.2); Basophils % (Auto) 0 % (0-2.5); Eosinophils # (Auto) 0.1 Thou/mm3 (0.0-0.5); Eosinophils % (Auto) 1 % (0-10); Hematocrit 26.5 % (41.0-53.0); Hemoglobin 9.1 g/dL (13.5-16.0); Immature Granulocytes Auto 0.08 Thou/mm3 (0.00-0.00); Lymphocytes # (Auto) 1.6 Thou/mm3 (1.0-4.8); Lymphocytes % (Auto) 10 % (10-50); Mean Corpuscular HGB Conc 34.3 g/dl (31.0-37.0); Mean Corpuscular Hemoglobin 30.0 pg (25.0-35.0); Mean Corpuscular Volume 88 fL (80-100); Monocytes # (Auto) 1.0 Thou/mm3 (0.0-0.8); Monocytes % (Auto) 6 % (0-12); Neutrophils # (Auto) 13.5 Thou/mm3 (1.8-7.7); Neutrophils % (Auto) 83 % (37-80); Nucleated Red Blood Cell # 0.00 Thou/mm3 (0.00-0.00); Nucleated Red Blood Cell % 0 /100 WBC (0); Platelet Count 326 Thou/mm3 (140-440); RDW Standard Deviation 39.7 fL (35.1-43.9); Red Blood Count 3.03 Miln/mm3 (4.50-5.90); White Blood Count 16.4 Thou/mm3 (3.8-10.6)
[2025-02-14 06:35] LABS: Anion Gap 8 (7-16); BUN/Creatinine Ratio 14 Ratio (12-20); Blood Urea Nitrogen 11 mg/dL (9-23); Calcium 8.5 mg/dL (8.3-10.6); Carbon Dioxide 29.2 mMol/L (20.0-31.0); Chloride 94 mMol/L (98-107); Creatinine (Component) 0.8 mg/dL (0.6-1.3); Estimated Creatinine Clearance 105.7 mL/min (>60); Glucose 137 mg/dL (74-106); Magnesium 1.4 mg/dL (1.6-2.6); Osmolality,Calculated 264 (275-295); Phosphorous 4.3 mg/dL (2.4-5.1); Potassium 4.5 mMol/L (3.4-5.1); Sodium 131 mMol/L (136-145); eGFR > 60 See Note
[2025-02-14 08:00] VITALS: BP 110/78; PULSE 93; PULSE 97; RESP 17; TEMP 36.2; O2SAT 95
[2025-02-14] MEDS: Magnesium Sulfate 4 GM Ivpb 4 GM/50 ML BAG IV (08:02)
[2025-02-14] MEDS: PANTOPRAZOLE 40 MG TABLET PO (08:02)
[2025-02-14] MEDS: INSULIN LISPRO (AdmeLOG) 1 UNIT/0.01 ML UNIT 4 UNIT SC ×3 (08:03→16:38)
[2025-02-14] MEDS: HEPARIN SOD INJ 5000 UNIT/ML VIAL SC ×2 (08:03→20:08)
[2025-02-14] MEDS: INSULIN GLARGINE (Lantus) 5 UNIT/0.05 ML (PER 5 UNITS) 30 UNIT SC (08:03)
[2025-02-14] MEDS: SOD HYPOCHLORITE 1/2 STR 473 ML BTL IRRIG ×2 (10:45→20:08)
[2025-02-14] MEDS: cefTRIAXone/D5w 1gm IV premix 1 GM/50 ML BAG IV (10:50)
--- NOTE | 2025-02-14 11:08 | PC.SS ---
Addendum entered by Nyla Miguel 02/14/25 14:52: SS follow up note; SS sent over PT notes for auth. SS spoke to Penelope from [facility] and she informed SS that she will submit for auth today. Original Note: SS follow up note; SS met with patient at bedside to inform him that [facility] accepted. Patient agreeable to discharge to [facility], patient is pending PT evaluation. SS contacted Teodoro from PT and he informed SS that he will input note for SS to send to [facility] for auth.
[2025-02-14] MEDS: INSULIN LISPRO (AdmeLOG) 1 UNIT/0.01 ML UNIT SC ×2 (11:59→16:37)
[2025-02-14 12:00] VITALS: BP 105/67; PULSE 100; PULSE 93; RESP 20; TEMP 36.1; O2SAT 94
--- NOTE | 2025-02-14 13:59 | PC.PT ---
Patient is safe to ambulate to the bathroom and in the halls with a FWW and 1 staff assist. RN made aware.
--- NOTE | 2025-02-14 14:40 | PD.RESPRO ---
Documentation for date of: 02/14/25 Subjective Subjective Interval history: No acute overnight events. Seen and examined at bedside and patient resting comfortably in bed, stating that he is not in any pain, has not experienced any fevers, chills, sweats. Blood sugars under control, vital signs stable, CBC showed mildly elevated leukocytosis but likely reactive from procedure, and CHEM panel showing hypomagnesemia that was replenished. Otherwise, pending authorization for SNF placement which patient is agreeable to. Today antibiotics de-escalated to ceftriaxone and doxycycline. Exam Vital Signs Temp Pulse Resp BP Pulse Ox O2 Del Method O2 Flow Rate 96.9 F 93 20 105/67 94 L Room Air 6 02/14/25 12:00 02/14/25 12:00 02/14/25 12:00 02/14/25 12:00 02/14/25 12:00 02/14/25 12:00 02/13/25 16:50 Narrative Exam General: AOx3, no acute distress, difficult to understand/dysarthric HEENT: Poor dentition, NC/AT, mucous membranes moist, bilateral sclera anicteric Cardiovascular: regular rate and rhythm, S1/S2 present, no murmurs appreciated Pulmonary: clear to auscultation bilaterally, no rales/rhonchi/wheezes Abdominal: soft, non-tender, non-distended, no rebound/guarding, normal bowel sounds present Musculoskeletal: normal ROM, no peripheral edema Skin: right lower extremity bandaged s/p MTP amputation and debridement Neuro: CN II-XII intact, no focal deficits Objective Labs 02/14/25 04:59 02/14/25 04:59 Labs: Laboratory Results - last 24 hr 02/13/25 02/14/25 21:06 04:59 WBC 16.4 H RBC 3.03 L Hgb 9.1 L Hct 26.5 L MCV 88 MCH 30.0 MCHC 34.3 RDW Std Deviation 39.7 Plt Count 326 Neut % (Auto) 83 H Lymph % (Auto) 10 [place] % (Auto) 6 Eos % (Auto) 1 Baso % (Auto) 0 Neut # (Auto) 13.5 H Lymph # (Auto) 1.6 [place] # (Auto) 1.0 H Eos # (Auto) 0.1 Baso # (Auto) 0.0 Immature Gran # (Auto) 0.08 H Absolute Nucleated RBC 0.00 Immature Gran % 1 H Nucleated RBC % 0 Sodium 131 L Potassium 4.5 Chloride 94 L Carbon Dioxide 29.2 Anion Gap 8 BUN 11 Creatinine 0.8 Estim Creat Clear Calc 105.7 eGFR > 60 BUN/Creatinine Ratio 14 Glucose 137 H Calculated Osmolality 264 L Calcium 8.5 Phosphorus 4.3 Magnesium 1.4 L Vancomycin Trough 14.5 H Quality Measures Quality Measures VTE prophylaxis Assessment & Plan Assessment Current Active Medications: Generic Name Dose Route Start Last Admin Trade Name Freq PRN Reason Stop Dose Admin Acetaminophen 650 mg 02/13/25 08:10 Acetaminophen 325 Mg Tablet PO 03/12/25 17:05 Q6H PRN PAIN 1-3 OR FEVER > 100.4 Dextrose 25 ml 02/10/25 17:11 Dextrose 50%-Water Inj 50 Ml Syringe IV 03/12/25 17:10 Q15MIN PRN BG 50-70 responsive npo pt Dextrose 50 ml 02/10/25 17:11 Dextrose 50%-Water Inj 50 Ml Syringe IV 03/12/25 17:10 Q15MIN PRN BG <50 OR BG <70 & pt unresponsive Glucagon 1 mg 02/10/25 17:11 Glucagon Inj 1 Mg Vial IM Q15MIN PRN BG <70, and no IV access Heparin Sodium (Porcine) 5,000 unit 02/10/25 21:00 02/14/25 08:03 Heparin Sod Inj 5000 Unit/Ml Vial SC 02/24/25 20:59 5,000 unit BID CHAUNCEY Administration Ceftriaxone Sodium/Dextrose 1 gm in 50 mls @ 100 mls/hr 02/14/25 10:31 02/14/25 10:50 Rocephin/D5w 1gm Iv Premix IV 02/21/25 10:30 100 mls/hr QDAY CHAUNCEY Administration Doxycycline Hyclate 100 mg/ 100 mls @ 100 mls/hr 02/14/25 21:00 Sodium Chloride IV 02/21/25 20:59 BID CHAUNCEY Insulin Glargine 30 unit 02/13/25 09:00 02/14/25 08:03 Insulin Glargine (Lantus) 5 Unit/0.05 Ml (Per 5 Units) SC 03/15/25 08:59 30 unit QDAY CHAUNCEY Administration Insulin Human Lispro 0 unit 02/13/25 05:00 02/14/25 11:59 Insulin Lispro (Admelog) 1 Unit/0.01 Ml Unit SC 03/15/25 04:59 3 unit Q6H CHAUNCEY Administration Protocol Insulin Human Lispro 4 unit 02/13/25 11:30 02/14/25 12:00 Insulin Lispro (Admelog) 1 Unit/0.01 Ml Unit SC 03/15/25 11:29 4 unit ACHS CHAUNCEY Administration Morphine Sulfate 1 mg 02/11/25 08:08 Morphine Sulf Inj 10 Mg/Ml Vial IVP 02/15/25 17:05 Q4H PRN PAIN SCALE 4-10(Mod-Sev Ondansetron HCl 4 mg 02/10/25 17:06 Ondansetron Inj 2 Mg/Ml Inj 2 Ml IVP 03/12/25 17:05 Q6H PRN NAUSEA OR VOMITING Protocol Pantoprazole Sodium 40 mg 02/13/25 09:00 02/14/25 08:02 Pantoprazole 40 Mg Tablet PO 03/15/25 08:59 40 mg QDAY CHAUNCEY Administration Quetiapine Fumarate 25 mg 02/10/25 21:00 02/13/25 21:15 Quetiapine Fumarate 25 Mg Tablet PO 03/12/25 20:59 25 mg HS CHAUNCEY Administration Sodium Hypochlorite 0 ml 02/11/25 12:15 02/14/25 10:45 Sod Hypochlorite 1/2 Str 473 Ml Btl IRRIG 03/13/25 12:14 473 ml BID CHAUNCEY Administration Plan Jaya Clements is a homeless 49-year-old male with a past medical history of CVA in 2022 and insulin-dependent type 2 diabetes mellitus who is admitted for right hallux osteomyelitis and DOT. #Sepsis secondary to right hallux osteomyelitis, resolved #Gangrene of right hallux, s/p MTP amputation and debridement Presents with necrotic, foul-smelling, draining tissue with maggots present on the right hallux. No fever or chills but has had some nausea and vomiting. ED, temperature 100.9 ?F, HR 139, leukocytosis of 22.4, and endorgan damage evidenced by DOT with creatinine 1.4 (baseline 1.0). Patient also has a history of uncontrolled diabetes mellitus which is likely contributing to severity of infection. Patient states that he is homeless and has not taken medications in years. CXR if right foot showed erosions distal aspect distal phalanx right first digit with soft tissue swelling. Status-post metatarsophalangeal joint amputation of the right great toe and extensive debridement of necrotic tissue that occurred without complications. Vancomycin and Zosyn (02/10-02/14) ? General Surgery consulted, appreciate recommendations ? Ceftriaxone and doxycycline (02/14-) ? Wound culture 02/10: Proteus mirabilis ? Blood culture 02/10: NGTD ? Wound care BID #Acute kidney injury, resolved #Right-sided pyelonephritis as seen on imaging Denies any urinary symptoms and no CVA tenderness on exam. UA showed 7 WBC but rare bacteria only. ? Urine culture: no significant growth ? Ceftriaxone and doxycycline as above ? Avoid nephrotoxic agents when possible, renally dose medications #Type 2 diabetes mellitus, insulin-dependent #Pseudohyponatremia A1c in 2022 with 10.5 and was 16.1 in 2020. Has not taken medications in many years. A1c this admission 7.6%. ? Glargine 30 units daily, lispro 4 units TIDWM ? SSI ? Hypoglycemic protocol placed #Methamphetamine use #Homelessness Urine toxicology positive for opiates and amphetamine. Echo showed normal LV size and function, EF 55-60%, normal diastolic function. Trace MR, TR, no pericardial effusion. ? Referral to social media sr strategy manager #History of stroke in 2022 Large acute infarct right frontoparietal lobe per MRI. Given that patient will likely undergo procedure, will hold antiplatelets at this time. Lipid panel showed TG 94, cholesterol 93, LDL 56, HDL 18. Hospital management: Disposition: s/p MTP amputation, on IV antibiotics, pending placement Diet: Carb consistent Lines: PIV DVT prophylaxis: Heparin SC BID GI prophylaxis: PPI CODE STATUS: full code ----- Plan discussed with attending physician Dr. Marjorie Brannon MD PGY-1 Internal Medicine Attending Provider Attestation/Addendum I have examined the patient, reviewed labs and imaging findings, discussed the case with the resident(s), and reviewed entered orders. I agree with the plan of care as outlined in this note, with these additional summaries/recommendations: Patient seen at bedside. No acute overnight events. Patient has no acute concerns today and social media sr strategy manager working on safe discharge as patient is currently homeless. Patient admitted for gangrene/osteomyelitis of distal phalanx right foot first digit. Patient is status post metatarsophalangeal joint amputation of the right great toe and extensive debridement of the necrotic tissue yesterday 02/14/2025. Patient tolerated the procedure well. Continue wound care. Continue IV antibiotic for now. Blood cultures show no growth. Continue insulin sliding scale with Accu-Cheks for diabetes mellitus type 2. Target blood sugar of 140-180 while hospitalized. Patient has history of CVA in 2022 and will resume aspirin tomorrow now that surgical intervention is complete. multimedia services coordinator following for complex social problems including homelessness Patient updated on the plan and agreement. All questions answered to satisfaction. Please see residents note for additional details and management. Dr. Marjorie MD
[2025-02-14 16:00] VITALS: BP 108/52; PULSE 97; PULSE 98; RESP 20; TEMP 36.2; O2SAT 96
[2025-02-14 20:00] VITALS: BP 112/72; PULSE 96; PULSE 97; RESP 10; TEMP 36.4; O2SAT 97
[2025-02-14] MEDS: DOXYCYCLINE INJ 100 MG in SODIUM CHLORIDE 0.9% (POP) 100 ML IV (20:08)
[2025-02-15] VITALS: BP 95/60; PULSE 103; RESP 17; TEMP 36.9; O2SAT 98
[2025-02-15] MEDS: INSULIN LISPRO (AdmeLOG) 1 UNIT/0.01 ML UNIT SC ×4 (00:15→17:26)
[2025-02-15 04:00] VITALS: BP 105/66; PULSE 95; RESP 18; TEMP 36.6; O2SAT 99
[2025-02-15 06:00] VITALS: BMI 22.4
[2025-02-15] MEDS: INSULIN LISPRO (AdmeLOG) 1 UNIT/0.01 ML UNIT 5 UNIT SC ×3 (07:35→17:26)
[2025-02-15 08:00] VITALS: BP 111/69; PULSE 93; PULSE 97; RESP 20; TEMP 36.3; O2SAT 95
[2025-02-15] MEDS: ASPIRIN EC 81 MG TABEC PO (08:45)
[2025-02-15] MEDS: INSULIN GLARGINE (Lantus) 5 UNIT/0.05 ML (PER 5 UNITS) 35 UNIT SC (08:45)
[2025-02-15] MEDS: PANTOPRAZOLE 40 MG TABLET PO (08:45)
[2025-02-15] MEDS: HEPARIN SOD INJ 5000 UNIT/ML VIAL SC (08:45)
[2025-02-15] MEDS: DOXYCYCLINE INJ 100 MG in SODIUM CHLORIDE 0.9% (POP) 100 ML IV ×2 (08:45→20:13)
[2025-02-15] MEDS: cefTRIAXone/D5w 1gm IV premix 1 GM/50 ML BAG IV (08:46)
[2025-02-15] MEDS: SOD HYPOCHLORITE 1/2 STR 473 ML BTL IRRIG (08:47)
[2025-02-15 10:33] LABS: Basophils # (Auto) 0.0 Thou/mm3 (0.0-0.2); Basophils % (Auto) 0 % (0-2.5); Eosinophils # (Auto) 0.2 Thou/mm3 (0.0-0.5); Eosinophils % (Auto) 2 % (0-10); Hematocrit 27.7 % (41.0-53.0); Hemoglobin 9.3 g/dL (13.5-16.0); Immature Granulocytes Auto 0.10 Thou/mm3 (0.00-0.00); Lymphocytes # (Auto) 1.3 Thou/mm3 (1.0-4.8); Lymphocytes % (Auto) 11 % (10-50); Mean Corpuscular HGB Conc 33.6 g/dl (31.0-37.0); Mean Corpuscular Hemoglobin 30.3 pg (25.0-35.0); Mean Corpuscular Volume 90 fL (80-100); Monocytes # (Auto) 1.1 Thou/mm3 (0.0-0.8); Monocytes % (Auto) 9 % (0-12); Neutrophils # (Auto) 8.9 Thou/mm3 (1.8-7.7); Neutrophils % (Auto) 77 % (37-80); Nucleated Red Blood Cell # 0.00 Thou/mm3 (0.00-0.00); Nucleated Red Blood Cell % 0 /100 WBC (0); Platelet Count 370 Thou/mm3 (140-440); RDW Standard Deviation 40.2 fL (35.1-43.9); Red Blood Count 3.07 Miln/mm3 (4.50-5.90); White Blood Count 11.6 Thou/mm3 (3.8-10.6)
[2025-02-15 10:52] LABS: Anion Gap 6 (7-16); BUN/Creatinine Ratio 19 Ratio (12-20); Blood Urea Nitrogen 15 mg/dL (9-23); Calcium 8.7 mg/dL (8.3-10.6); Carbon Dioxide 29.1 mMol/L (20.0-31.0); Chloride 95 mMol/L (98-107); Creatinine (Component) 0.8 mg/dL (0.6-1.3); Estimated Creatinine Clearance 105.7 mL/min (>60); Glucose 136 mg/dL (74-106); Magnesium 1.7 mg/dL (1.6-2.6); Osmolality,Calculated 263 (275-295); Phosphorous 2.6 mg/dL (2.4-5.1); Potassium 4.5 mMol/L (3.4-5.1); Sodium 130 mMol/L (136-145); eGFR > 60 See Note
[2025-02-15 12:00] VITALS: BP 93/61; PULSE 89; PULSE 93; RESP 16; TEMP 36.1; O2SAT 99
--- NOTE | 2025-02-15 12:07 | PC.SS ---
Addendum entered by Nyla Miguel 02/15/25 15:18: SS attempted to contact [facility], SS left Voicemail with SS call back number. SS contacted Penelope from [employer] and informed that at the time authorization was still pending. Original Note: SS follow up note; SS attempted to contact [facility], however no answer, SS left Voicemail with call back number, SS contacted Penelope from [employer] and she informed SS that she had contacted patient's insurance and it was still under clinical review. SS will stand by for further needs.
--- NOTE | 2025-02-15 13:14 | ESPR_ITS ---
Documentation for date of: 02/15/25 Subjective Subjective Interval history: No acute overnight events. Seen and examined at bedside and resting comfortably in bed. Undergoing dressing change and wound care upon evaluation and patient denies any pain. At this time currently awaiting authorization for SNF placement. Otherwise, vital signs stable, glucose under control and CBC showed improved leukocytosis from 16 to 11, hemoglobin stable, CHEM panel showed glucose 136 and unremarkable. Wound culture grew Proteus mirabilis sensitive to ceftriaxone and will continue to follow-up other cultures. Exam Vital Signs Temp Pulse Resp BP Pulse Ox O2 Del Method O2 Flow Rate 97.3 F 93 20 111/69 95 Room Air 6 02/15/25 08:00 02/15/25 08:00 02/15/25 08:00 02/15/25 08:00 02/15/25 08:00 02/15/25 08:00 02/13/25 16:50 Narrative Exam General: AOx3, no acute distress, difficult to understand/dysarthric HEENT: Poor dentition, NC/AT, mucous membranes moist, bilateral sclera anicteric Cardiovascular: regular rate and rhythm, S1/S2 present, no murmurs appreciated Pulmonary: clear to auscultation bilaterally, no rales/rhonchi/wheezes Abdominal: soft, non-tender, non-distended, no rebound/guarding, normal bowel sounds present Musculoskeletal: normal ROM, no peripheral edema Skin: right lower extremity bandaged s/p MTP amputation and debridement Neuro: CN II-XII intact, no focal deficits Objective Labs 02/15/25 10:19 02/15/25 10:19 Labs: Laboratory Results - last 24 hr 02/15/25 10:19 WBC 11.6 H RBC 3.07 L Hgb 9.3 L Hct 27.7 L MCV 90 MCH 30.3 MCHC 33.6 RDW Std Deviation 40.2 Plt Count 370 D Neut % (Auto) 77 Lymph % (Auto) 11 [place] % (Auto) 9 Eos % (Auto) 2 Baso % (Auto) 0 Neut # (Auto) 8.9 H Lymph # (Auto) 1.3 [place] # (Auto) 1.1 H Eos # (Auto) 0.2 Baso # (Auto) 0.0 Immature Gran # (Auto) 0.10 H Absolute Nucleated RBC 0.00 Immature Gran % 1 H Nucleated RBC % 0 Sodium 130 L Potassium 4.5 Chloride 95 L Carbon Dioxide 29.1 Anion Gap 6 L BUN 15 Creatinine 0.8 Estim Creat Clear Calc 105.7 eGFR > 60 BUN/Creatinine Ratio 19 Glucose 136 H Calculated Osmolality 263 L Calcium 8.7 Phosphorus 2.6 Magnesium 1.7 Quality Measures Quality Measures VTE prophylaxis Assessment & Plan Assessment Current Active Medications: Generic Name Dose Route Start Last Admin Trade Name Freq PRN Reason Stop Dose Admin Acetaminophen 650 mg 02/13/25 08:10 Acetaminophen 325 Mg Tablet PO 03/12/25 17:05 Q6H PRN PAIN 1-3 OR FEVER > 100.4 Aspirin 81 mg 02/15/25 09:00 02/15/25 08:45 Aspirin Ec 81 Mg Tabec PO 03/17/25 08:59 81 mg QDAY CHAUNCEY Administration Atorvastatin Calcium 40 mg 02/14/25 21:00 02/14/25 21:42 Atorvastatin Calcium 20 Mg Tablet PO 03/16/25 20:59 Not Given HS CHAUNCEY Dextrose 25 ml 02/10/25 17:11 Dextrose 50%-Water Inj 50 Ml Syringe IV 03/12/25 17:10 Q15MIN PRN BG 50-70 responsive npo pt Dextrose 50 ml 02/10/25 17:11 Dextrose 50%-Water Inj 50 Ml Syringe IV 03/12/25 17:10 Q15MIN PRN BG <50 OR BG <70 & pt unresponsive Glucagon 1 mg 02/10/25 17:11 Glucagon Inj 1 Mg Vial IM Q15MIN PRN BG <70, and no IV access Heparin Sodium (Porcine) 5,000 unit 02/10/25 21:00 02/15/25 08:45 Heparin Sod Inj 5000 Unit/Ml Vial SC 02/24/25 20:59 5,000 unit BID CHAUNCEY Administration Ceftriaxone Sodium/Dextrose 1 gm in 50 mls @ 100 mls/hr 02/14/25 10:31 02/15/25 08:46 Rocephin/D5w 1gm Iv Premix IV 02/21/25 10:30 100 mls/hr QDAY CHAUNCEY Administration Doxycycline Hyclate 100 mg/ 100 mls @ 100 mls/hr 02/14/25 21:00 02/15/25 08:45 Sodium Chloride IV 02/21/25 20:59 100 mls/hr BID CHAUNCEY Administration Insulin Glargine 35 unit 02/15/25 09:00 02/15/25 08:45 Insulin Glargine (Lantus) 5 Unit/0.05 Ml (Per 5 Units) SC 03/17/25 08:59 35 unit QDAY CHAUNCEY Administration Insulin Human Lispro 0 unit 02/15/25 07:30 02/15/25 11:55 Insulin Lispro (Admelog) 1 Unit/0.01 Ml Unit SC 03/17/25 07:29 3 unit ACHS CHAUNCEY Administration Protocol Insulin Human Lispro 5 unit 02/15/25 07:30 02/15/25 11:55 Insulin Lispro (Admelog) 1 Unit/0.01 Ml Unit SC 03/17/25 07:29 5 unit ACHS CHAUNCEY Administration Morphine Sulfate 1 mg 02/11/25 08:08 Morphine Sulf Inj 10 Mg/Ml Vial IVP 02/15/25 17:05 Q4H PRN PAIN SCALE 4-10(Mod-Sev Ondansetron HCl 4 mg 02/10/25 17:06 Ondansetron Inj 2 Mg/Ml Inj 2 Ml IVP 03/12/25 17:05 Q6H PRN NAUSEA OR VOMITING Protocol Pantoprazole Sodium 40 mg 02/13/25 09:00 02/15/25 08:45 Pantoprazole 40 Mg Tablet PO 03/15/25 08:59 40 mg QDAY CHAUNCEY Administration Quetiapine Fumarate 25 mg 02/10/25 21:00 02/14/25 20:08 Quetiapine Fumarate 25 Mg Tablet PO 03/12/25 20:59 25 mg HS CHAUNCEY Administration Sodium Hypochlorite 0 ml 02/11/25 12:15 02/15/25 08:47 Sod Hypochlorite 1/2 Str 473 Ml Btl IRRIG 03/13/25 12:14 473 ml BID CHAUNCEY Administration Plan Jaya Clements is a homeless 49-year-old male with a past medical history of CVA in 2022 and insulin-dependent type 2 diabetes mellitus who is admitted for right hallux osteomyelitis and DOT. #Sepsis secondary to right hallux osteomyelitis, resolved #Gangrene of right hallux, s/p MTP amputation and debridement Presents with necrotic, foul-smelling, draining tissue with maggots present on the right hallux. No fever or chills but has had some nausea and vomiting. ED, temperature 100.9 ?F, HR 139, leukocytosis of 22.4, and endorgan damage evidenced by DOT with creatinine 1.4 (baseline 1.0). Patient also has a history of uncontrolled diabetes mellitus which is likely contributing to severity of infection. Patient states that he is homeless and has not taken medications in years. CXR if right foot showed erosions distal aspect distal phalanx right first digit with soft tissue swelling. Status-post metatarsophalangeal joint amputation of the right great toe and extensive debridement of necrotic tissue that occurred without complications. Vancomycin and Zosyn (02/10-02/14) ? General Surgery consulted, appreciate recommendations ? Ceftriaxone and doxycycline (02/14-) ? Wound culture 02/10: Proteus mirabilis ? Blood culture 02/10: NGTD ? Wound care BID ? Pending authorization #Acute kidney injury, resolved #Right-sided pyelonephritis as seen on imaging Denies any urinary symptoms and no CVA tenderness on exam. UA showed 7 WBC but rare bacteria only. ? Urine culture: no significant growth ? Ceftriaxone and doxycycline as above ? Avoid nephrotoxic agents when possible, renally dose medications #Type 2 diabetes mellitus, insulin-dependent #Pseudohyponatremia A1c in 2022 with 10.5 and was 16.1 in 2020. Has not taken medications in many years. A1c this admission 7.6%. ? Glargine 35 units daily, lispro 5 units TIDWM ? SSI ? Hypoglycemic protocol placed #Methamphetamine use #Homelessness Urine toxicology positive for opiates and amphetamine. Echo showed normal LV size and function, EF 55-60%, normal diastolic function. Trace MR, TR, no pericardial effusion. ? Referral to geriatric social worker #History of stroke in 2022 Large acute infarct right frontoparietal lobe per MRI. Given that patient will likely undergo procedure, will hold antiplatelets at this time. Lipid panel showed TG 94, cholesterol 93, LDL 56, HDL 18. ? Aspirin 81 mg daily ? Atorvastatin 40 mg at bedtime Hospital management: Disposition: s/p MTP amputation, on IV antibiotics, pending placement Diet: Carb consistent Lines: PIV DVT prophylaxis: Heparin SC BID GI prophylaxis: PPI CODE STATUS: full code ----- Plan discussed with attending physician Dr. Marjorie Brannon MD PGY-1 Internal Medicine Attending Provider Attestation/Addendum I have examined the patient, reviewed labs and imaging findings, discussed the case with the resident(s), and reviewed entered orders. I agree with the plan of care as outlined in this note, with these additional summaries/recommendations: Patient seen at bedside. No acute overnight events. Patient has no acute concerns today and geriatric social worker working on safe discharge as patient is currently homeless. Patient admitted for gangrene/osteomyelitis of distal phalanx right foot first digit. Patient is status post metatarsophalangeal joint amputation of the right great toe and extensive debridement of the necrotic tissue on 02/13/2025. Patient tolerated the procedure well. Continue wound care. Continue IV antibiotic for now. Blood cultures show no growth. Continue insulin sliding scale with Accu-Cheks for diabetes mellitus type 2. Target blood sugar of 140-180 while hospitalized. Patient has history of CVA in 2022 and resume aspirin. consumer services consultant following for complex social problems including homelessness. Patient updated on the plan and agreement. All questions answered to satisfaction. Please see residents note for additional details and management. Dr. Marjorie MD
[2025-02-15 13:48] VITALS: BMI 22.4
[2025-02-15 16:00] VITALS: BP 118/78; PULSE 97; PULSE 98; RESP 20; TEMP 36; O2SAT 98
[2025-02-15 20:00] VITALS: BP 90/65; PULSE 96; PULSE 97; RESP 18; TEMP 36.2; O2SAT 98
[2025-02-15] MEDS: ATORVASTATIN CALCIUM 20 MG TABLET 40 MG PO (20:13)
[2025-02-16] VITALS: BP 110/71; PULSE 96; PULSE 99; RESP 19; TEMP 36.3; O2SAT 99
[2025-02-16 04:00] VITALS: BP 103/68; PULSE 96; PULSE 97; RESP 23; TEMP 36.2; O2SAT 94
[2025-02-16 06:00] VITALS: BMI 22.4
[2025-02-16 08:00] VITALS: BP 95/59; PULSE 93; RESP 19; TEMP 36.3; O2SAT 98
[2025-02-16] MEDS: PANTOPRAZOLE 40 MG TABLET PO (08:23)
[2025-02-16] MEDS: ASPIRIN EC 81 MG TABEC PO (08:23)
[2025-02-16] MEDS: DOXYCYCLINE INJ 100 MG in SODIUM CHLORIDE 0.9% (POP) 100 ML IV ×2 (08:23→20:45)
[2025-02-16] MEDS: HEPARIN SOD INJ 5000 UNIT/ML VIAL SC ×2 (08:23→20:46)
[2025-02-16] MEDS: INSULIN LISPRO (AdmeLOG) 1 UNIT/0.01 ML UNIT 5 UNIT SC ×4 (08:24→20:46)
[2025-02-16] MEDS: cefTRIAXone/D5w 1gm IV premix 1 GM/50 ML BAG IV (08:24)
[2025-02-16] MEDS: SOD HYPOCHLORITE 1/2 STR 473 ML BTL IRRIG (08:25)
[2025-02-16] MEDS: INSULIN GLARGINE (Lantus) 5 UNIT/0.05 ML (PER 5 UNITS) 35 UNIT SC (08:25)
[2025-02-16 12:00] VITALS: BP 103/78; PULSE 89; RESP 19; TEMP 36.1; O2SAT 99
[2025-02-16] MEDS: INSULIN LISPRO (AdmeLOG) 1 UNIT/0.01 ML UNIT SC (12:35)
--- NOTE | 2025-02-16 14:03 | PC.CC ---
ASW attempted to call [facility], but the AUTH dept was closed due to it being the weekend. ASW left a message requesting a return call.
--- NOTE | 2025-02-16 14:55 | PD.HHPROG ---
Documentation for date of: 02/16/25 Subjective - Hospitalist Subjective Interval history: Patient seen at bedside. No acute overnight events. Patient reports his pain is well-controlled and has no acute concerns other than when he will be discharged. Discussed with patient that social studies department chair is working on safe discharge. Patient endorses appropriate appetite and sleep. He is hemodynamically stable and afebrile. Blood sugar 135 this morning. He denies headache, chest pain, shortness of breath, cough, fever/chills, abdominal pain, and no GI or urinary symptoms at this time. Review of Systems Review of Systems Systems Reviewed: All systems reviewed, normal except as documented Exam Vital Signs Temp Pulse Resp BP Pulse Ox O2 Del Method O2 Flow Rate 97.0 F 89 19 103/78 99 Room Air 6 02/16/25 12:00 02/16/25 12:00 02/16/25 12:02/16/25 12:02/16/25 12:02/16/25 12:00 02/13/25 16:50 Narrative General: AOx3, no acute distress, difficult to understand/dysarthric HEENT: Poor dentition, NC/AT, mucous membranes moist, bilateral sclera anicteric Cardiovascular: regular rate and rhythm, S1/S2 present, no murmurs appreciated Pulmonary: clear to auscultation bilaterally, no rales/rhonchi/wheezes Abdominal: soft, non-tender, non-distended, no rebound/guarding, normal bowel sounds present Musculoskeletal: normal ROM, no peripheral edema Skin: right lower extremity bandaged s/p MTP amputation and debridement Neuro: CN II-XII intact, no focal deficits Objective - Hospitalist Labs Diagram: 02/15/25 10:19 02/15/25 10:19 Assessment & Plan Plan: Jaya Clements is a homeless 49-year-old male with a past medical history of CVA in 2022 and insulin-dependent type 2 diabetes mellitus who is admitted for right hallux osteomyelitis and DOT. #right hallux osteomyelitis, s/p amputation #Gangrene of right hallux, s/p MTP amputation and debridement Presents with necrotic, foul-smelling, draining tissue with maggots present on the right hallux. No fever or chills but has had some nausea and vomiting. ED, temperature 100.9 ?F, HR 139, leukocytosis of 22.4, and endorgan damage evidenced by DOT with creatinine 1.4 (baseline 1.0). Patient also has a history of uncontrolled diabetes mellitus which is likely contributing to severity of infection. Patient states that he is homeless and has not taken medications in years. CXR if right foot showed erosions distal aspect distal phalanx right first digit with soft tissue swelling. Status-post metatarsophalangeal joint amputation of the right great toe and extensive debridement of necrotic tissue that occurred without complications. Vancomycin and Zosyn (02/10-02/14) ? General Surgery following, appreciate recommendations ? Ceftriaxone and doxycycline (02/14-) ? Wound culture 02/10: Proteus mirabilis ? Blood culture 02/10: NGTD ? Wound care BID ? Pending authorization #Acute kidney injury, resolved #Right-sided pyelonephritis as seen on imaging Denies any urinary symptoms and no CVA tenderness on exam. UA showed 7 WBC but rare bacteria only. ? Urine culture: no significant growth ? Ceftriaxone and doxycycline as above ? Avoid nephrotoxic agents when possible, renally dose medications #Type 2 diabetes mellitus, insulin-dependent #Pseudohyponatremia A1c in 2022 with 10.5 and was 16.1 in 2020. Has not taken medications in many years. A1c this admission 7.6%. ? Glargine 35 units daily, lispro 5 units TIDWM ? SSI ? Hypoglycemic protocol placed #Methamphetamine use #Homelessness Urine toxicology positive for opiates and amphetamine. Echo showed normal LV size and function, EF 55-60%, normal diastolic function. Trace MR, TR, no pericardial effusion. ? Referral to social studies department chair #History of stroke in 2022 Large acute infarct right frontoparietal lobe per MRI. Given that patient will likely undergo procedure, will hold antiplatelets at this time. Lipid panel showed TG 94, cholesterol 93, LDL 56, HDL 18. ? Aspirin 81 mg daily ? Atorvastatin 40 mg at bedtime Hospital management: Disposition: s/p MTP amputation, on IV antibiotics, pending placement Diet: Carb consistent Lines: PIV DVT prophylaxis: Heparin SC BID GI prophylaxis: PPI CODE STATUS: full code Dr. Marjorie MD Time Spent with Patient Time: Total time spent is greater than 50% in coordination of care (as documented) at patient's floor/unit and/or counseling patient: Time with patient: Greater than 35 minutes Reason for Continued Stay Reason for continued stay: other (Placement ) Quality Measures Quality Measures VTE prophylaxis
[2025-02-16 16:00] VITALS: BP 102/69; PULSE 76; PULSE 98; RESP 16; TEMP 36.5; O2SAT 96
[2025-02-16 20:00] VITALS: BP 109/75; PULSE 97; RESP 18; TEMP 36.7; O2SAT 94
[2025-02-16] MEDS: ATORVASTATIN CALCIUM 20 MG TABLET 40 MG PO (20:45)
[2025-02-17] VITALS (9 sets, daily range): BP systolic 95–114; BP diastolic 60–75; PULSE 71–108; RESP 16–20; TEMP 35.6–36.7; O2SAT 95–99; BMI 22.0
[2025-02-17] MEDS: ASPIRIN EC 81 MG TABEC PO (10:17)
[2025-02-17] MEDS: cefTRIAXone/D5w 1gm IV premix 1 GM/50 ML BAG IV (10:17)
[2025-02-17] MEDS: PANTOPRAZOLE 40 MG TABLET PO (10:17)
[2025-02-17] MEDS: DOXYCYCLINE INJ 100 MG in SODIUM CHLORIDE 0.9% (POP) 100 ML IV ×2 (10:18→20:34)
[2025-02-17] MEDS: INSULIN GLARGINE (Lantus) 5 UNIT/0.05 ML (PER 5 UNITS) 35 UNIT SC (10:18)
[2025-02-17] MEDS: HEPARIN SOD INJ 5000 UNIT/ML VIAL SC ×2 (10:18→20:35)
[2025-02-17] MEDS: SOD HYPOCHLORITE 1/2 STR 473 ML BTL IRRIG (10:19)
--- NOTE | 2025-02-17 11:03 | PD.RESPRO ---
Documentation for date of: 02/17/25 Subjective Subjective Interval history: Patient was seen and examined at bedside. No acute overnight events. Labs and vitals were reviewed. Patient is afebrile, blood sugar is well-controlled with Lantus 35 daily and lispro 5 3 times daily, blood cultures are negative, pending insurance authorization, currently will continue Rocephin and doxycycline, plan is to discharge with p.o. antibiotics and follow-up outpatient with wound care and PCP. Medically patient is cleared, pending placement. Exam Vital Signs Temp Pulse Resp BP Pulse Ox O2 Del Method O2 Flow Rate 97.2 F 98 19 106/72 95 Room Air 6 02/17/25 07:39 02/17/25 07:39 02/17/25 07:39 02/17/25 07:39 02/17/25 07:39 02/17/25 07:39 02/13/25 16:50 Narrative Exam General: AOx3, no acute distress, difficult to understand/dysarthric HEENT: Poor dentition, NC/AT, mucous membranes moist, bilateral sclera anicteric Cardiovascular: regular rate and rhythm, S1/S2 present, no murmurs appreciated Pulmonary: clear to auscultation bilaterally, no rales/rhonchi/wheezes Abdominal: soft, non-tender, non-distended, no rebound/guarding, normal bowel sounds present Musculoskeletal: normal ROM, no peripheral edema Skin: right lower extremity bandaged s/p MTP amputation and debridement Neuro: CN II-XII intact, no focal deficits Objective Labs 02/15/25 10:19 02/15/25 10:19 Quality Measures Quality Measures VTE prophylaxis Assessment & Plan Assessment Current Active Medications: Generic Name Dose Route Start Last Admin Trade Name Freq PRN Reason Stop Dose Admin Acetaminophen 650 mg 02/13/25 08:10 Acetaminophen 325 Mg Tablet PO 03/12/25 17:05 Q6H PRN PAIN 1-3 OR FEVER > 100.4 Aspirin 81 mg 02/15/25 09:00 02/17/25 10:17 Aspirin Ec 81 Mg Tabec PO 03/17/25 08:59 81 mg QDAY CHAUNCEY Administration Atorvastatin Calcium 40 mg 02/14/25 21:00 02/16/25 20:45 Atorvastatin Calcium 20 Mg Tablet PO 03/16/25 20:59 40 mg HS CHAUNCEY Administration Dextrose 25 ml 02/10/25 17:11 Dextrose 50%-Water Inj 50 Ml Syringe IV 03/12/25 17:10 Q15MIN PRN BG 50-70 responsive npo pt Dextrose 50 ml 02/10/25 17:11 Dextrose 50%-Water Inj 50 Ml Syringe IV 03/12/25 17:10 Q15MIN PRN BG <50 OR BG <70 & pt unresponsive Glucagon 1 mg 02/10/25 17:11 Glucagon Inj 1 Mg Vial IM Q15MIN PRN BG <70, and no IV access Heparin Sodium (Porcine) 5,000 unit 02/10/25 21:00 02/17/25 10:18 Heparin Sod Inj 5000 Unit/Ml Vial SC 02/24/25 20:59 5,000 unit BID CHAUNCEY Administration Ceftriaxone Sodium/Dextrose 1 gm in 50 mls @ 100 mls/hr 02/14/25 10:31 02/17/25 10:17 Rocephin/D5w 1gm Iv Premix IV 02/21/25 10:30 100 mls/hr QDAY CHAUNCEY Administration Doxycycline Hyclate 100 mg/ 100 mls @ 100 mls/hr 02/14/25 21:00 02/17/25 10:18 Sodium Chloride IV 02/21/25 20:59 100 mls/hr BID CHAUNCEY Administration Insulin Glargine 35 unit 02/15/25 09:00 02/17/25 10:18 Insulin Glargine (Lantus) 5 Unit/0.05 Ml (Per 5 Units) SC 03/17/25 08:59 35 unit QDAY CHAUNCEY Administration Insulin Human Lispro 0 unit 02/15/25 07:30 02/17/25 08:13 Insulin Lispro (Admelog) 1 Unit/0.01 Ml Unit SC 03/17/25 07:29 Not Given [facility] Protocol Insulin Human Lispro 5 unit 02/15/25 07:30 02/17/25 08:14 Insulin Lispro (Admelog) 1 Unit/0.01 Ml Unit SC 03/17/25 07:29 Not Given [facility] Ondansetron HCl 4 mg 02/10/25 17:06 Ondansetron Inj 2 Mg/Ml Inj 2 Ml IVP 03/12/25 17:05 Q6H PRN NAUSEA OR VOMITING Protocol Pantoprazole Sodium 40 mg 02/13/25 09:00 02/17/25 10:17 Pantoprazole 40 Mg Tablet PO 03/15/25 08:59 40 mg QDAY CHAUNCEY Administration Quetiapine Fumarate 25 mg 02/10/25 21:00 02/16/25 20:45 Quetiapine Fumarate 25 Mg Tablet PO 03/12/25 20:59 25 mg HS CHAUNCEY Administration Sodium Hypochlorite 0 ml 02/11/25 12:15 02/17/25 10:19 Sod Hypochlorite 1/2 Str 473 Ml Btl IRRIG 03/13/25 12:14 473 ml BID CHAUNCEY Administration Plan Jaya Clements is a homeless 49-year-old male with a past medical history of CVA in 2022 and insulin-dependent type 2 diabetes mellitus who is admitted for right hallux osteomyelitis and DOT. #Sepsis secondary to right hallux osteomyelitis, resolved #Gangrene of right hallux, s/p MTP amputation and debridement Presents with necrotic, foul-smelling, draining tissue with maggots present on the right hallux. No fever or chills but has had some nausea and vomiting. ED, temperature 100.9 ?F, HR 139, leukocytosis of 22.4, and endorgan damage evidenced by DOT with creatinine 1.4 (baseline 1.0). Patient also has a history of uncontrolled diabetes mellitus which is likely contributing to severity of infection. Patient states that he is homeless and has not taken medications in years. CXR if right foot showed erosions distal aspect distal phalanx right first digit with soft tissue swelling. Status-post metatarsophalangeal joint amputation of the right great toe and extensive debridement of necrotic tissue that occurred without complications. Vancomycin and Zosyn (02/10-02/14) ? General Surgery consulted, appreciate recommendations ? Ceftriaxone and doxycycline (02/14-) ? Wound culture 02/10: Proteus mirabilis ? Blood culture 02/10: NGTD ? Wound care BID ? Pending authorization #Acute kidney injury, resolved #Right-sided pyelonephritis as seen on imaging Denies any urinary symptoms and no CVA tenderness on exam. UA showed 7 WBC but rare bacteria only. ? Urine culture: no significant growth ? Ceftriaxone and doxycycline as above ? Avoid nephrotoxic agents when possible, renally dose medications #Type 2 diabetes mellitus, insulin-dependent #Pseudohyponatremia A1c in 2022 with 10.5 and was 16.1 in 2020. Has not taken medications in many years. A1c this admission 7.6%. ? Glargine 35 units daily, lispro 5 units TIDWM ? SSI ? Hypoglycemic protocol placed #Methamphetamine use #Homelessness Urine toxicology positive for opiates and amphetamine. Echo showed normal LV size and function, EF 55-60%, normal diastolic function. Trace MR, TR, no pericardial effusion. ? Referral to health social work professor #History of stroke in 2022 Large acute infarct right frontoparietal lobe per MRI. Given that patient will likely undergo procedure, will hold antiplatelets at this time. Lipid panel showed TG 94, cholesterol 93, LDL 56, HDL 18. ? Aspirin 81 mg daily ? Atorvastatin 40 mg at bedtime Hospital management: Disposition: s/p MTP amputation, on IV antibiotics, pending insurance authorization for placement Diet: Carb consistent Lines: PIV DVT prophylaxis: Heparin SC BID GI prophylaxis: PPI CODE STATUS: full code ----- Patient care was discussed with attending physician Dr. Marjorie Don MD PGY-2 Attending Provider Attestation/Addendum I have examined the patient, reviewed labs and imaging findings, discussed the case with the resident(s), and reviewed entered orders. I agree with the plan of care as outlined in this note, with these additional summaries/recommendations: Patient seen at bedside. No acute overnight events. Patient has no new symptoms to report today. environmental field services technician working on safe discharge as patient is currently homeless. Patient admitted for gangrene/osteomyelitis of distal phalanx right foot first digit. Patient is status post metatarsophalangeal joint amputation of the right great toe and extensive debridement of the necrotic tissue on 02/13/2025. Patient tolerated the procedure well. Continue wound care. Continue IV antibiotic for now and likely will discontinue tomorrow 02/18/25. Blood cultures show no growth. Continue insulin sliding scale with Accu-Cheks for diabetes mellitus type 2. Target blood sugar of 140-180 while hospitalized. Patient has history of CVA in 2022 and resume aspirin. environmental field services technician following for complex social problems including homelessness. Patient updated on the plan and agreement. All questions answered to satisfaction. Please see residents note for additional details and management. Dr. Marjorie MD
[2025-02-17] MEDS: INSULIN LISPRO (AdmeLOG) 1 UNIT/0.01 ML UNIT 5 UNIT SC (18:05)
[2025-02-17] MEDS: INSULIN LISPRO (AdmeLOG) 1 UNIT/0.01 ML UNIT SC (18:06)
[2025-02-17] MEDS: ATORVASTATIN CALCIUM 20 MG TABLET 40 MG PO (20:33)
[2025-02-18] VITALS (10 sets, daily range): BP systolic 92–122; BP diastolic 63–70; PULSE 78–105; RESP 16–19; TEMP 36.1–36.7; O2SAT 95–98; BMI 22.0
--- NOTE | 2025-02-18 06:00 | PC.NURSE ---
Patient did not want wound care done during my shift. Attempted 2x but patient wanted to sleep and wanted to be left alone
[2025-02-18] MEDS: INSULIN GLARGINE (Lantus) 5 UNIT/0.05 ML (PER 5 UNITS) 35 UNIT SC (08:04)
[2025-02-18] MEDS: INSULIN LISPRO (AdmeLOG) 1 UNIT/0.01 ML UNIT 5 UNIT SC ×2 (08:05→22:01)
[2025-02-18] MEDS: PANTOPRAZOLE 40 MG TABLET PO (09:38)
[2025-02-18] MEDS: ASPIRIN EC 81 MG TABEC PO (09:38)
[2025-02-18] MEDS: cefTRIAXone/D5w 1gm IV premix 1 GM/50 ML BAG IV (09:38)
[2025-02-18] MEDS: DOXYCYCLINE INJ 100 MG in SODIUM CHLORIDE 0.9% (POP) 100 ML IV ×2 (09:39→21:54)
[2025-02-18] MEDS: HEPARIN SOD INJ 5000 UNIT/ML VIAL SC ×2 (09:39→21:58)
--- NOTE | 2025-02-18 09:47 | PC.SS ---
SS follow up note; SS contacted Massiel at [facility] to check status on authorization, She informed SS that once she gets to the office she would take a look and if not contact Insurance. SS also attempted to contact [employer] and left Voicemail to Joanna as well as Reinier, SS also emailed Care on Tuesday, however has not got a response back. SS will stand by for further needs.
--- NOTE | 2025-02-18 11:00 | PC.SS ---
Addendum entered by Nyla Miguel 02/18/25 15:26: SS follow up note; SS contacted Massiel from [facility] to check status on auth, she informed SS that she emailed her auth coordinator to check status on auth and has not yet heard back. Original Note: SS follow up note; SS was contacted by Sheila from [facility], she informed SS that they have not got any authorization request for SNF. SS contacted Massiel and informed her that insurance had not received SNF request. Massiel informed SS she would contact insurance. SS will stand by for further needs.
[2025-02-18] MEDS: NICOTINE PATCH 14 MG/24 HR PATCH.TD24 TOP (11:07)
--- NOTE | 2025-02-18 12:29 | PD.RESPRO ---
Documentation for date of: 02/18/25 Subjective Subjective Interval history: No acute ovenright events. Seen and examined at bedside and patient does not have any complaints at this time. Per social media designer, authorization was not sent from facility and continues to await for placement. Blood sugars remain well-controlled on current regimen, heart rate 105 but otherwise vital signs stable. No longer following labs. Exam Vital Signs Temp Pulse Resp BP Pulse Ox O2 Del Method O2 Flow Rate 97.2 F 105 H 18 122/67 96 Room Air 6 02/18/25 07:48 02/18/25 08:00 02/18/25 07:48 02/18/25 07:48 02/18/25 07:48 02/18/25 07:48 02/13/25 16:50 Narrative Exam General: AOx3, no acute distress, difficult to understand/dysarthric HEENT: Poor dentition, NC/AT, mucous membranes moist, bilateral sclera anicteric Cardiovascular: regular rate and rhythm, S1/S2 present, no murmurs appreciated Pulmonary: clear to auscultation bilaterally, no rales/rhonchi/wheezes Abdominal: soft, non-tender, non-distended, no rebound/guarding, normal bowel sounds present Musculoskeletal: normal ROM, no peripheral edema Skin: right lower extremity bandaged s/p MTP amputation and debridement Neuro: CN II-XII intact, no focal deficits Objective Labs 02/15/25 10:19 02/15/25 10:19 Quality Measures Quality Measures VTE prophylaxis Assessment & Plan Assessment Current Active Medications: Generic Name Dose Route Start Last Admin Trade Name Freq PRN Reason Stop Dose Admin Acetaminophen 650 mg 02/13/25 08:10 Acetaminophen 325 Mg Tablet PO 03/12/25 17:05 Q6H PRN PAIN 1-3 OR FEVER > 100.4 Aspirin 81 mg 02/15/25 09:00 02/18/25 09:38 Aspirin Ec 81 Mg Tabec PO 03/17/25 08:59 81 mg QDAY CHAUNCEY Administration Atorvastatin Calcium 40 mg 02/14/25 21:00 02/17/25 20:33 Atorvastatin Calcium 20 Mg Tablet PO 03/16/25 20:59 40 mg HS CHAUNCEY Administration Dextrose 25 ml 02/10/25 17:11 Dextrose 50%-Water Inj 50 Ml Syringe IV 03/12/25 17:10 Q15MIN PRN BG 50-70 responsive npo pt Dextrose 50 ml 02/10/25 17:11 Dextrose 50%-Water Inj 50 Ml Syringe IV 03/12/25 17:10 Q15MIN PRN BG <50 OR BG <70 & pt unresponsive Glucagon 1 mg 02/10/25 17:11 Glucagon Inj 1 Mg Vial IM Q15MIN PRN BG <70, and no IV access Heparin Sodium (Porcine) 5,000 unit 02/10/25 21:00 02/18/25 09:39 Heparin Sod Inj 5000 Unit/Ml Vial SC 02/24/25 20:59 5,000 unit BID CHAUNCEY Administration Ceftriaxone Sodium/Dextrose 1 gm in 50 mls @ 100 mls/hr 02/14/25 10:31 02/18/25 09:38 Rocephin/D5w 1gm Iv Premix IV 02/21/25 10:30 100 mls/hr QDAY CHAUNCEY Administration Doxycycline Hyclate 100 mg/ 100 mls @ 100 mls/hr 02/14/25 21:00 02/18/25 09:39 Sodium Chloride IV 02/21/25 20:59 100 mls/hr BID CHAUNCEY Administration Insulin Glargine 35 unit 02/15/25 09:00 02/18/25 08:04 Insulin Glargine (Lantus) 5 Unit/0.05 Ml (Per 5 Units) SC 03/17/25 08:59 35 unit QDAY CHAUNCEY Administration Insulin Human Lispro 0 unit 02/15/25 07:30 02/18/25 11:33 Insulin Lispro (Admelog) 1 Unit/0.01 Ml Unit SC 03/17/25 07:29 Not Given [facility] Protocol Insulin Human Lispro 5 unit 02/15/25 07:30 02/18/25 11:35 Insulin Lispro (Admelog) 1 Unit/0.01 Ml Unit SC 03/17/25 07:29 Not Given [facility] Ondansetron HCl 4 mg 02/10/25 17:06 Ondansetron Inj 2 Mg/Ml Inj 2 Ml IVP 03/12/25 17:05 Q6H PRN NAUSEA OR VOMITING Protocol Pantoprazole Sodium 40 mg 02/13/25 09:00 02/18/25 09:38 Pantoprazole 40 Mg Tablet PO 03/15/25 08:59 40 mg QDAY CHAUNCEY Administration Quetiapine Fumarate 25 mg 02/10/25 21:00 02/17/25 20:34 Quetiapine Fumarate 25 Mg Tablet PO 03/12/25 20:59 25 mg HS CHAUNCEY Administration Sodium Hypochlorite 0 ml 02/11/25 12:15 02/18/25 11:08 Sod Hypochlorite 1/2 Str 473 Ml Btl IRRIG 03/13/25 12:14 30 ml BID CHAUNCEY Administration Plan Jaya Clements is a homeless 49-year-old male with a past medical history of CVA in 2022 and insulin-dependent type 2 diabetes mellitus who is admitted for right hallux osteomyelitis and DOT. #Sepsis secondary to right hallux osteomyelitis, resolved #Gangrene of right hallux, s/p MTP amputation and debridement Presents with necrotic, foul-smelling, draining tissue with maggots present on the right hallux. No fever or chills but has had some nausea and vomiting. ED, temperature 100.9 ?F, HR 139, leukocytosis of 22.4, and endorgan damage evidenced by DOT with creatinine 1.4 (baseline 1.0). Patient also has a history of uncontrolled diabetes mellitus which is likely contributing to severity of infection. Patient states that he is homeless and has not taken medications in years. CXR if right foot showed erosions distal aspect distal phalanx right first digit with soft tissue swelling. Status-post metatarsophalangeal joint amputation of the right great toe and extensive debridement of necrotic tissue that occurred without complications. Vancomycin and Zosyn (02/10-02/14) ? General Surgery consulted, appreciate recommendations ? Ceftriaxone and doxycycline (02/14-) ? Wound culture 02/10: Proteus mirabilis ? Blood culture 02/10: NGTD ? Wound care BID ? Pending authorization #Acute kidney injury, resolved #Right-sided pyelonephritis as seen on imaging Denies any urinary symptoms and no CVA tenderness on exam. UA showed 7 WBC but rare bacteria only. ? Urine culture: no significant growth ? Ceftriaxone and doxycycline as above ? Avoid nephrotoxic agents when possible, renally dose medications #Type 2 diabetes mellitus, insulin-dependent #Pseudohyponatremia A1c in 2022 with 10.5 and was 16.1 in 2020. Has not taken medications in many years. A1c this admission 7.6%. ? Glargine 35 units daily, lispro 5 units TIDWM ? SSI ? Hypoglycemic protocol placed #Methamphetamine use #Homelessness Urine toxicology positive for opiates and amphetamine. Echo showed normal LV size and function, EF 55-60%, normal diastolic function. Trace MR, TR, no pericardial effusion. ? Referral to social media campaign manager #History of stroke in 2022 Large acute infarct right frontoparietal lobe per MRI. Given that patient will likely undergo procedure, will hold antiplatelets at this time. Lipid panel showed TG 94, cholesterol 93, LDL 56, HDL 18. ? Aspirin 81 mg daily ? Atorvastatin 40 mg at bedtime Hospital management: Disposition: s/p MTP amputation, on IV antibiotics, pending insurance authorization for placement Diet: Carb consistent Lines: PIV DVT prophylaxis: Heparin SC BID GI prophylaxis: PPI CODE STATUS: full code ----- Patient care was discussed with attending physician Dr. Marjorie Don MD PGY-2 Attending Provider Attestation/Addendum I have examined the patient, reviewed labs and imaging findings, discussed the case with the resident(s), and reviewed entered orders. I agree with the plan of care as outlined in this note, with these additional summaries/recommendations: Patient seen at bedside. No acute overnight events. Patient reports he is anxious to be discharged and discussed with patient that case management is working on authorization. guest services coordinator working on safe discharge as patient is currently homeless. Patient admitted for gangrene/osteomyelitis of distal phalanx right foot first digit. Patient is status post metatarsophalangeal joint amputation of the right great toe and extensive debridement of the necrotic tissue on 02/13/2025. Patient tolerated the procedure well. Continue wound care. Continue IV antibiotic for now and likely will discontinue tomorrow 02/18/25. Blood cultures show no growth. Continue insulin sliding scale with Accu-Cheks for diabetes mellitus type 2. Target blood sugar of 140-180 while hospitalized. Patient has history of CVA in 2022 and resume aspirin. guest services coordinator following for complex social problems including homelessness. Patient updated on the plan and agreement. All questions answered to satisfaction. Please see residents note for additional details and management. Dr. Marjorie MD
[2025-02-18] MEDS: ATORVASTATIN CALCIUM 20 MG TABLET 40 MG PO (21:54)
[2025-02-18] MEDS: INSULIN LISPRO (AdmeLOG) 1 UNIT/0.01 ML UNIT SC (22:02)
[2025-02-18] MEDS: SOD HYPOCHLORITE 1/2 STR 473 ML BTL IRRIG (22:05)
[2025-02-19] VITALS: BP 92/65; PULSE 113; PULSE 98; RESP 18; TEMP 37.1; O2SAT 98
[2025-02-19 04:00] VITALS: BP 99/62; PULSE 100; PULSE 113; RESP 16; TEMP 36.2; O2SAT 98
[2025-02-19 05:31] VITALS: BMI 22.0
[2025-02-19] MEDS: INSULIN LISPRO (AdmeLOG) 1 UNIT/0.01 ML UNIT 5 UNIT SC ×2 (07:51→12:11)
[2025-02-19 08:00] VITALS: BP 95/70; PULSE 97; PULSE 98; RESP 16; TEMP 36.4; O2SAT 95
[2025-02-19] MEDS: INSULIN GLARGINE (Lantus) 5 UNIT/0.05 ML (PER 5 UNITS) 35 UNIT SC (08:24)
[2025-02-19] MEDS: cefTRIAXone/D5w 1gm IV premix 1 GM/50 ML BAG IV (08:25)
[2025-02-19] MEDS: PANTOPRAZOLE 40 MG TABLET PO (08:25)
[2025-02-19] MEDS: HEPARIN SOD INJ 5000 UNIT/ML VIAL SC (08:25)
[2025-02-19] MEDS: DOXYCYCLINE INJ 100 MG in SODIUM CHLORIDE 0.9% (POP) 100 ML IV (08:25)
[2025-02-19] MEDS: ASPIRIN EC 81 MG TABEC PO (08:25)
[2025-02-19] MEDS: SOD HYPOCHLORITE 1/2 STR 473 ML BTL IRRIG (08:26)
--- NOTE | 2025-02-19 09:42 | PC.SS ---
Addendum entered by Nyla Miguel 02/19/25 15:07: SS follow up note; Patient has an appointment at the wound care Clinic on March 04 @ 9:30 AM. Provided patient with wound care's contact number and appointment day. Addendum entered by Nyla Miguel 02/19/25 13:48: SS follow up note; SS attempted to contact [facility] to schedule patient an appointment. SS provided patient with [facility] contact number. SS also contacted the wound care clinic and informed them that was going to submit Referral for Wound care, however patient did not have a phone or a way to get [facility] of. SS met with patient and provided Wound Care's contact number to schedule himself an appointment, Patient verbalized understanding. Addendum entered by Nyla Miguel 02/19/25 10:54: SS follow up note; SS contacted Teodoro from and he informed SS that patient is able to ambulate without assistance. SS will meet with patient to inform him that insurance denied SNF. Ss will stand by for further needs. Original Note: SS follow up note; SS was contacted by Narcisa zaldivar [facility], she informed that [facility] denied patient's SNF stay, and reported patient does not meet criteria for SNF. Patient is ambulatory and able to complete ADL's. SS updated Team A. SS will update patient.
--- NOTE | 2025-02-19 11:23 | PD.RESPRO ---
Documentation for date of: 02/19/25 Subjective Subjective Interval history: No acute overnight events. Seen and examined at bedside and patient does not have any complaints at this time, states he is doing well. Per psychiatric social worker supervisor, authorization was not sent from facility and continues to await for placement. Blood sugars remain well-controlled on current regimen. Vital signs stable. No longer following labs. Exam Vital Signs Temp Pulse Resp BP Pulse Ox O2 Del Method O2 Flow Rate 97.6 F 97 16 95/70 95 Room Air 6 02/19/25 08:00 02/19/25 08:00 02/19/25 08:00 02/19/25 08:00 02/19/25 08:00 02/19/25 08:00 02/13/25 16:50 Narrative Exam General: AOx3, no acute distress, difficult to understand/dysarthric HEENT: Poor dentition, NC/AT, mucous membranes moist, bilateral sclera anicteric Cardiovascular: regular rate and rhythm, S1/S2 present, no murmurs appreciated Pulmonary: clear to auscultation bilaterally, no rales/rhonchi/wheezes Abdominal: soft, non-tender, non-distended, no rebound/guarding, normal bowel sounds present Musculoskeletal: normal ROM, no peripheral edema Skin: right lower extremity bandaged s/p MTP amputation and debridement Neuro: CN II-XII intact, no focal deficits Objective Labs 02/15/25 10:19 02/15/25 10:19 Quality Measures Quality Measures VTE prophylaxis Assessment & Plan Assessment Current Active Medications: Generic Name Dose Route Start Last Admin Trade Name Freq PRN Reason Stop Dose Admin Acetaminophen 650 mg 02/13/25 08:10 Acetaminophen 325 Mg Tablet PO 03/12/25 17:05 Q6H PRN PAIN 1-3 OR FEVER > 100.4 Aspirin 81 mg 02/15/25 09:00 02/19/25 08:25 Aspirin Ec 81 Mg Tabec PO 03/17/25 08:59 81 mg QDAY CHAUNCEY Administration Atorvastatin Calcium 40 mg 02/14/25 21:00 02/18/25 21:54 Atorvastatin Calcium 20 Mg Tablet PO 03/16/25 20:59 40 mg HS CHAUNCEY Administration Dextrose 25 ml 02/10/25 17:11 Dextrose 50%-Water Inj 50 Ml Syringe IV 03/12/25 17:10 Q15MIN PRN BG 50-70 responsive npo pt Dextrose 50 ml 02/10/25 17:11 Dextrose 50%-Water Inj 50 Ml Syringe IV 03/12/25 17:10 Q15MIN PRN BG <50 OR BG <70 & pt unresponsive Glucagon 1 mg 02/10/25 17:11 Glucagon Inj 1 Mg Vial IM Q15MIN PRN BG <70, and no IV access Heparin Sodium (Porcine) 5,000 unit 02/10/25 21:00 02/19/25 08:25 Heparin Sod Inj 5000 Unit/Ml Vial SC 02/24/25 20:59 5,000 unit BID CHAUNCEY Administration Ceftriaxone Sodium/Dextrose 1 gm in 50 mls @ 100 mls/hr 02/14/25 10:31 02/19/25 08:25 Rocephin/D5w 1gm Iv Premix IV 02/21/25 10:30 100 mls/hr QDAY CHAUNCEY Administration Doxycycline Hyclate 100 mg/ 100 mls @ 100 mls/hr 02/14/25 21:00 02/19/25 08:25 Sodium Chloride IV 02/21/25 20:59 100 mls/hr BID CHAUNCEY Administration Insulin Glargine 35 unit 02/15/25 09:00 02/19/25 08:24 Insulin Glargine (Lantus) 5 Unit/0.05 Ml (Per 5 Units) SC 03/17/25 08:59 35 unit QDAY CHAUNCEY Administration Insulin Human Lispro 0 unit 02/15/25 07:30 02/19/25 07:47 Insulin Lispro (Admelog) 1 Unit/0.01 Ml Unit SC 03/17/25 07:29 Not Given [facility] Protocol Insulin Human Lispro 5 unit 02/15/25 07:30 02/19/25 07:51 Insulin Lispro (Admelog) 1 Unit/0.01 Ml Unit SC 03/17/25 07:29 5 unit ACHS [facility] Administration Ondansetron HCl 4 mg 02/10/25 17:06 Ondansetron Inj 2 Mg/Ml Inj 2 Ml IVP 03/12/25 17:05 Q6H PRN NAUSEA OR VOMITING Protocol Pantoprazole Sodium 40 mg 02/13/25 09:00 02/19/25 08:25 Pantoprazole 40 Mg Tablet PO 03/15/25 08:59 40 mg QDAY CHAUNCEY Administration Quetiapine Fumarate 25 mg 02/10/25 21:00 02/18/25 21:54 Quetiapine Fumarate 25 Mg Tablet PO 03/12/25 20:59 25 mg HS CHAUNCEY Administration Sodium Hypochlorite 0 ml 02/11/25 12:15 02/19/25 08:26 Sod Hypochlorite 1/2 Str 473 Ml Btl IRRIG 03/13/25 12:14 1 appln BID CHAUNCEY Administration Plan Jaya Clements is a homeless 49-year-old male with a past medical history of CVA in 2022 and insulin-dependent type 2 diabetes mellitus who is admitted for right hallux osteomyelitis and DOT. #Sepsis secondary to right hallux osteomyelitis, resolved #Gangrene of right hallux, s/p MTP amputation and debridement Presents with necrotic, foul-smelling, draining tissue with maggots present on the right hallux. No fever or chills but has had some nausea and vomiting. ED, temperature 100.9 ?F, HR 139, leukocytosis of 22.4, and endorgan damage evidenced by DOT with creatinine 1.4 (baseline 1.0). Patient also has a history of uncontrolled diabetes mellitus which is likely contributing to severity of infection. Patient states that he is homeless and has not taken medications in years. CXR if right foot showed erosions distal aspect distal phalanx right first digit with soft tissue swelling. Status-post metatarsophalangeal joint amputation of the right great toe and extensive debridement of necrotic tissue that occurred without complications. Vancomycin and Zosyn (02/10-02/14) ? General Surgery consulted, appreciate recommendations ? Ceftriaxone and doxycycline (02/14-) ? Wound culture 02/10: Proteus mirabilis ? Blood culture 02/10: NGTD ? Wound care BID ? Pending authorization #Acute kidney injury, resolved #Right-sided pyelonephritis as seen on imaging Denies any urinary symptoms and no CVA tenderness on exam. UA showed 7 WBC but rare bacteria only. ? Urine culture: no significant growth ? Ceftriaxone and doxycycline as above ? Avoid nephrotoxic agents when possible, renally dose medications #Type 2 diabetes mellitus, insulin-dependent #Pseudohyponatremia A1c in 2022 with 10.5 and was 16.1 in 2020. Has not taken medications in many years. A1c this admission 7.6%. ? Glargine 35 units daily, lispro 5 units TIDWM ? SSI ? Hypoglycemic protocol placed #Methamphetamine use #Homelessness Urine toxicology positive for opiates and amphetamine. Echo showed normal LV size and function, EF 55-60%, normal diastolic function. Trace MR, TR, no pericardial effusion. ? Referral to nursing home social worker #History of stroke in 2022 Large acute infarct right frontoparietal lobe per MRI. Given that patient will likely undergo procedure, will hold antiplatelets at this time. Lipid panel showed TG 94, cholesterol 93, LDL 56, HDL 18. ? Aspirin 81 mg daily ? Atorvastatin 40 mg at bedtime Hospital management: Disposition: s/p MTP amputation, on IV antibiotics, pending insurance authorization for placement Diet: Carb consistent Lines: PIV DVT prophylaxis: Heparin SC BID GI prophylaxis: PPI CODE STATUS: full code ----- Patient care was discussed with attending physician Dr. Marjorie Don MD PGY-2 Attending Provider Attestation/Addendum I have examined the patient, reviewed labs and imaging findings, discussed the case with the resident(s), and reviewed entered orders. I agree with the plan of care as outlined in this note, with these additional summaries/recommendations: Patient seen at bedside. No acute overnight events. Patient reports he is anxious to be discharged and discussed with patient that case management is working on authorization. surgical services tech working on safe discharge as patient is currently homeless. Patient admitted for gangrene/osteomyelitis of distal phalanx right foot first digit. Patient is status post metatarsophalangeal joint amputation of the right great toe and extensive debridement of the necrotic tissue on 02/13/2025. Patient tolerated the procedure well. Continue wound care. Continue IV antibiotic for now and likely will discontinue tomorrow 02/18/25. Blood cultures show no growth. Continue insulin sliding scale with Accu-Cheks for diabetes mellitus type 2. Target blood sugar of 140-180 while hospitalized. Patient has history of CVA in 2022 and resume aspirin. surgical services tech following for complex social problems including homelessness. Patient updated on the plan and agreement. All questions answered to satisfaction. Please see residents note for additional details and management. Dr. Marjorie MD
[2025-02-19 12:00] VITALS: BP 113/68; PULSE 91; RESP 18; TEMP 36.1; O2SAT 97
--- NOTE | 2025-02-19 14:58 | ESDS_ITS ---
<Statement entered by Paul Chahal MD - 02/21/25 13:59> I have discussed and was present for the essential components of the history, physical examination, diagnosis, and treatment plan with the resident. I agree with the patient's care as documented by the resident and amended herein by me. Paul Chahal MD FACP. Planned Discharge Date 02/19/25 DS: Providers Provider Date of admission: 02/10/25 17:06 Primary care physician: Physician No Primary/Family Admitting Provider: Karol Prado MD Attending Provider on Admission: Rad Amador MD Consults: 02/10/25 17:11 Consult to General Surgery Routine Comment: Consulting Provider: Melina Gonzalez 02/10/25 21:03 Referral Wound Care Stat Comment: LEFT FOOT WITH MAGGOTS 02/11/25 13:39 Referral Registered Dietitian Routine Comment: Instructions: Wounds 02/11/25 13:41 Referral OP Wound Healing Dept Routine Comment: Right great toe 02/13/25 21:19 Referral Physical Therapy Routine Comment: Physician Instructions: Attending Provider on DC: Dr. Darvin Chahal Discharging Provider: RESIDENT Adriana Anticipated date of discharge: 02/19/25 DS: Diagnosis Problem List Completed Was Problem List Reviewed/Reconciled?: Yes Hospital Course Hospital Course Hospital course: Jaya Clements is a homeless 49-year-old male with a past medical history of CVA in 2022 and insulin-dependent type 2 diabetes mellitus who presents on 02/10 with necrotic, foul-smelling, draining tissue with maggots present on the right hallux, diagnosed with osteomyelitis of the right hallux. Patient underwent metatarsophalangeal joint amputation of the right great toe and extensive debridement of necrotic tissue that occurred without complications. Patient was on Vancomycin and Zosyn from 02/10 - 02/14. Has been on Ceftriaxone and Doxycycline from 02/14 through discharge. Regarding DOT, that has been resolved. Regarding the R-sided pyelonephritis seen on imaging, patient denies any urinary symptoms no CVA tenderness on exam. UA showed 7 WBC but rare bacteria only. For his type 2 diabetes, will continue his insulin regimen of Glargine 35 units da becky, lispro 5 units TIDWM with SSI. For his history of meth use and homelessness was referred to geriatric social work professor for resources. Discharge Plan: ? Take 35 units glargine for your diabetes ? Continue taking all other home medications as prescribed ? Follow-up with PCP within 1-2 weeks of discharge at [facility] [address] - Follow up with wound care clinic ? Return to ED if symptoms worsen or recur #Sepsis secondary to right hallux osteomyelitis, resolved #Gangrene of right hallux, s/p MTP amputation and debridement #Acute kidney injury, resolved #Right-sided pyelonephritis as seen on imaging #Type 2 diabetes mellitus, insulin-dependent #Pseudohyponatremia #Methamphetamine use #Homelessness #History of stroke in 2022 Fidel Reyes MD PGY-1 Patient seen and examined at bedside, no acute overnight events. I discussed and supervised with the sourcing intern physician who took care of this patient. I personally saw and examined the patient. I agree with most of the assessment and plan. Plan of care discussed with attending Dr. Chahal. Jaya Babb MD PGY-2 Time Spent with Patient Time attestation: Total time spent providing and/or coordinating discharge services: Time spent: Greater than 30 minutes Exam Vital Signs Temp Pulse Resp BP Pulse Ox O2 Del Method O2 Flow Rate 97.0 F 91 18 113/68 97 Room Air 6 02/19/25 12:00 02/19/25 12:00 02/19/25 12:00 02/19/25 12:00 02/19/25 12:00 02/19/25 12:00 02/13/25 16:50 Narrative Exam General: AOx3, no acute distress, difficult to understand/dysarthric HEENT: Poor dentition, NC/AT, mucous membranes moist, bilateral sclera anicteric Cardiovascular: regular rate and rhythm, S1/S2 present, no murmurs appreciated Pulmonary: clear to auscultation bilaterally, no rales/rhonchi/wheezes Abdominal: soft, non-tender, non-distended, no rebound/guarding, normal bowel sounds present Musculoskeletal: normal ROM, no peripheral edema Skin: right lower extremity bandaged s/p MTP amputation and debridement Neuro: CN II-XII intact, no focal deficits Discharge Plan Plan Patient Disposition: HOME (Self Care) Patient condition on transfer: Stable Care Plan Goals: ? Take 35 units glargine for your diabetes ? Continue taking all other home medications as prescribed ? Follow-up with PCP within 1-2 weeks of discharge at [facility] [address] - Follow up with wound care clinic ? Return to ED if symptoms worsen or recur Prescriptions/Referrals Prescriptions/Med Rec: New insulin glargine 100 unit/mL (3 mL) insulin pen, sensor 35 unit subcut QDAY 30 Days Qty: 10.5 0RF Continued gemfibrozil 600 mg Tablet 600 mg PO BID metformin 1,000 mg Tablet 1,000 mg PO BID atorvastatin 20 mg tablet 20 mg PO QPM Qty: 30 2RF aspirin 81 mg tablet,delayed release (DR/EC) 81 mg PO QDAY Qty: 30 2RF meloxicam 7.5 mg tablet 7.5 mg PO QDAY Qty: 10 0RF Discontinued Levemir FlexTouch U100 Insulin 100 unit/mL (3 mL) insulin pen 40 unit SC QDAY Qty: 3 0RF Rx Instructions: Please provide with corresponding needles and caps. insulin lispro 100 unit/mL insulin pen See Rx Instructions .ROUTE .COMPLEX Qty: 3 0RF Rx Instructions: Please administer TID AC and HS per light sliding scale. Please provide with corresponding pens and caps. clopidogrel 75 mg tablet 75 mg PO QDAY Qty: 30 2RF Referrals: [facility] [Other] (Please Reach out to make an appointment) [facility] [Outside] No Primary/Family,Physician [Primary Care Provider] - Patient/Caregiver Discharge Instructions Education Materials: Diabetes Treat Severe Foot Infecs, Insulin How to Use and Where to Inject, Osteomyelitis Dc, Preventing Surgical Site Infections, ED Diabetic Foot Care, ED Diet: Diabetes Print Language: Divehi Stand Alone Forms: Brigitte Award Info., Patient Portal Info Letter Discharge Order Discharge Orders: Discharge (Routine); Ordered 02/18/25 Ordered By: Perez Brannon Quality Discharge Quality Measures VTE prophylaxis
[2025-02-19 15:30] VITALS: BP 130/86; PULSE 99; RESP 15; TEMP 36.7; O2SAT 99
== END 2025-02-19 15:44 | disposition home or self-care (01) | DRG 710 ==
LOC: SERX 16:38 → SERHOLD 18:07 → S2NX 19:45 → S3NX 02-16 20:11
PROVIDERS: Physician Assistant Medical; Surgery; Admitting Provider Student in an Organized Health Care Education/Training Program; Emergency Provider Emergency Medicine; Visit Provider Student in an Organized Health Care Education/Training Program
PROC: (CPT 28820; principal; 2025-02-13 15:00)
DX: A41.59 Other Gram-negative sepsis (principal); R65.20 Severe sepsis without septic shock; R63.4 Abnormal weight loss; E11.65 Type 2 diabetes mellitus with hyperglycemia; E11.69 Type 2 diabetes mellitus with other specified complication; M86.171 Other acute osteomyelitis, right ankle and foot; N17.9 Acute kidney failure, unspecified; E87.1 Hypo-osmolality and hyponatremia; F15.10 Other stimulant abuse, uncomplicated; N12 Tubulo-interstitial nephritis, not specified as acute or chronic; E11.52 Type 2 diabetes mellitus with diabetic peripheral angiopathy with gangrene; Z86.73 Personal history of transient ischemic attack (TIA), and cerebral infarction without residual deficits; Z59.00 Homelessness unspecified; Z79.4 Long term (current) use of insulin; Z68.23 Body mass index [BMI] 23.0-23.9, adult; F17.210 Nicotine dependence, cigarettes, uncomplicated; E83.42 Hypomagnesemia; Z79.82 Long term (current) use of aspirin; Z79.899 Other long term (current) drug therapy
CPT/HCPCS: 36415; 71045; 73630; 74177; 80048; 80053; 80061; 80202; 80307; 81001; 82010; 83036; 83605; 83690; 83735; 84100; 84443; 85025; 85610; 85730; 87040; 87070; 87075; 87077; 87086; 87186; 87205; 93005; 93225; 93306; 96365; 96366; 96367; 96375; 97162; 99285; A4217; A4649; J0696; J1644; J1815; J2250; J2270; J2274; J2371; J2470; J2543; J2704; J3010; J3370; J3372; J3475; J3490; J7030; J7050; J7999; Q0162; Q9967; A9270

== ENCOUNTER 2025-02-25 09:05 | Outpatient (AMB) | payer MEDICAID, SELFPAY ==
[2025-02-25 09:16] VITALS: BP 63/34; PULSE 96; RESP 18; TEMP 36.4; O2SAT 94; BMI 22.6
--- NOTE | 2025-02-25 09:16 | PD.RESCLINIC ---
Vital Signs 02/25/25 09:16 Height 1.75 m Height Method Stated Weight 69.57 kg Weight Measurement Method Standing Scale BMI 22.6 BP 63/34 L Blood Pressure Source Automatic Cuff Blood Pressure Location Right Upper Arm Position Sitting Respiration 18 Pulse 96 Pulse Source Monitor Temp 97.6 F Temp Source Temporal Artery Scan Pulse Oximetry (%) 94 L Oxygen Delivery Method Room Air Allergies/Meds Allergies & Medications Allergies No Known Allergies Allergy (Verified 02/25/25 09:18) Medication Reconciliation aspirin 81 mg tablet,delayed release 81 mg PO QDAY #30 tabs 02/26/25 [Rx] atorvastatin 20 mg tablet 20 mg PO QPM #30 tabs 02/26/25 [Rx] blood sugar diagnostic (Accu-Chek Guide test strips) #100 ea 02/26/25 [Rx] blood-glucose meter (Accu-Chek Guide Me Glucose Meter) #1 ea 02/26/25 [Rx] gemfibrozil 600 mg tablet 600 mg PO BID #60 tabs 02/26/25 [Rx] insulin glargine 100 unit/mL (3 mL) subcutaneous pen, sensor 35 unit (0.35 mL) subcut QDAY 1 month #10.5 mL 02/26/25 [Rx] meloxicam 7.5 mg tablet 7.5 mg PO QDAY #10 tabs 02/26/25 [Rx] metformin 1,000 mg tablet 1,000 mg PO BID #60 tabs 02/26/25 [Rx] pen needle, diabetic 31 gauge x 1/4 (1st Tier Unifine Pentips Plus) #100 ea 02/26/25 [Rx] lancets (Accu-Chek Softclix Lancets) #100 ea 02/27/25 [Rx] MA Intake Visit Data Collection New Patient or Established: Established Patient (seen at [facility] within 3 years) Seen by Clinical Staff ONLY (RN/MA): No Pain Present Currently: No Pain scale:: 0 Pain Scale Used: AvilaAlyssa/Numerical Lightning Rod Installer Required: No PCP or OBGYN visit in last 3 months: No Hx Now: No Do You Feel Safe at Home: Yes Authorities Contacted: N/A Smoking Status Smoking Status: Unknown if ever smoked Immunization / Flu Flu Vaccine in the Last 12 Months: No Flu Vaccine Exclusion Criteria: No Exclusion Criteria Past Medical History Past Medical History NEUROLOGIC: Negative Neurological Disorders or Seizures CARDIAC: Positive Cardiac Disorders (stroke), Hypercholesterolemia and Hypertension; Negative Congestive Heart Failure RESPIRATORY: Positive Smoking; Negative Chronic Obstructive Pulmonary Disease (COPD) or Asthma GASTROINTESTINAL: Negative Gastrointestinal Disorders GENITOURINARY: Negative Genitourinary Disorders or Renal Disease ENDOCRINE: Positive Endocrine Disorders and Diabetes Mellitus Type 2; Negative Diabetes Mellitus Type 1 HEMATOLOGIC: Negative Blood Disorders or Sickle Cell Disease PSYCHO/SOCIAL: Positive Recreational Drug Use, Depression and Anxiety OTHER HISTORY: Positive Hospitalization; Negative Autoimmune Disease, Down Syndrome, Developmental Delay, Shingles, Falls, Blood Transfusions, Blood Transfusion Reaction, Anesthesia Reactions, Organ Transplant, Chemotherapy, Radiation Therapy, Hyperbaric Therapy, MRSA or Cancer Surgical History SURGICAL: Negative Organ Transplant Social History SMOKING STATUS: Smoking status: Unknown if ever smoked SECOND HAND EXPOSURE: second hand exposure: Yes ALCOHOL: Alcohol Intake: Current ALCOHOL FREQUENCY: Alcohol Intake Frequency: holidays/special occasions only HOUSING: Housing: Homeless LIVES WITH: Lives With: Alone Patient Tali Lopez Social History Living Situation History Housing: Homeless Housing Other:: With Father Tobacco History Smoking Status: Unknown if ever smoked Packs per Day: 1 Second Hand Smoke Exposure: Yes Alcohol History Alcohol Intake: Current Alcohol Intake Frequency: holidays/special occasions only Substance Use History Substance Use: meth 2 months ago Domestic Abuse History Do You Feel Safe at Home: Yes Review of Systems Report any current symptoms Only answer those that you have currently: Past Medical History Past Medical History Have you ever been diagnosed with any of the following: Neurological Problems Seizures: No Cardiology Problems Hypercholesterolemia: Yes Congestive Heart Failure: No Hypertension: Yes Respiratory Problems Chronic Obstructive Pulmonary Disease (COPD): No Asthma: No Smoking: Yes Genital/Urinary Problems Renal Disease: No Endocrine Problems Diabetes Mellitus Type 1: No Diabetes Mellitus Type 2: Yes Blood Problems Sickle Cell Disease: No Psychologic Problems Recreational Drug Use: Yes Depression: Yes Anxiety: Yes Other Problems Hospitalization: Yes Autoimmune Disease: No Down Syndrome: No Developmental Delay: No Shingles: No Falls: No Blood Transfusions: No Blood Transfusion Reaction: No Anesthesia Reactions: No Organ Transplant: No Chemotherapy: No Radiation Therapy: No Hyperbaric Therapy: No MRSA: No Cancer: No History of Present Illness HPI Narrative Mr. Clements is a homeless 49-year-old male with a past medical history of CVA in 2022 and insulin-dependent type 2 diabetes mellitus who was hoispitalized from 02/10 - 02/19 for IV antibiotics for osteomylitis and underwent metatarsophalangeal joint amputation of the right great toe on 02/13/25. 02/25: Pt is in office for follow up appointment after hospital discharge, the bandage on the right toes looks blood and dirty, he has an appointment at the wound clinic on 03/04 however I went ahead and called the [facility] wound care enter to see if he can be seen today for wound care. Pt denies any fever, chills, shortness of breath or palpitations. BP in office is 86/57 and repeat BP is the same, pt denies any dizziness or syncopal episodes, states he is doing fine, however he skipped his breakfast today. Since discharge from the hospital pt has been unable to take any of his medications due to pharmacy filling issue. Today finger stick glucose in office is 158. Pt was not discharged from the hospital with any antibiotics. Pt requested to resend glucometer, lacets and strips prescription. Review of Systems Review of Systems Systems Reviewed: All systems reviewed, normal except as documented Objective/Exam Narrative Physical exam: GENERAL: A&Ox3 , pale, unkept, appears to be older than stated age, Awake, Not in acute distress NEURO: no focal neurological deficits HEENT: Atraumatic, Normocephalic. mucous membranes moist. Eyes open, symmetrical, & clear HEART: Normal Heart Sounds LUNGS: Clear to auscultation with no wheezing or crackles. ABDOMEN: soft, non-distended, non-tender, bowel sounds heard, no guarding or rebound tenderness SKIN: No Rash or ecchymoses EXTREMITIES: No edema, tenderness, able to move all 4 extremities, pedal pulses palpated Assessment & Plan Diagnosis / Problem List (1) Osteomyelitis: Status: Acute Assessment & Plan: Pt underwent metatarsophalangeal joint amputation of the right great toe on 02/13/25. -Pt was not discharged home with antibitoics, only received IV antibiotics at during hospitalization Plan: -Called wound care clinic to move pt's appointment to today -continue wound care with wound care clinic -Inspect feet daily for injuries -Keep the wound clean and dry (2) Type 2 diabetes mellitus: Status: Acute Assessment & Plan: -A1c on 02/11 7.6 -In office finger stick glucose check 158 Plan: -continue tight glycemic control with daily accu-cheks -continue glargine 35 units daily -Continue dietary modification to adhere to diabetic diet -Ordered glucometer, lancets and strips Additional Assessment Attending note: I, Jose De Jesus Mcbride MD, attest that I was physically present for the nicholas portions of the service completed via telehealth, and I reviewed and discussed the case with the resident and agree with the resident's plans of care as documented above. Jose De Jesus Mcbride MD Physician Billing New Patient New Patient: E/M Level 3-CPT [address] [facility] Level of Care Nursing/Assessment Patient Status: Established Patient Nursing Assessment/Reassessment: Medication Reconciliation, Update PMH in EMR and Vital Signs Coordination of Care: Complex Care and Chronic Disease 1-5, Consent,records obtained, informed consent, Education Simp Pt/Fam, Lab and Imaging orders and Staff clarify orders Established Patient Charge Established Patient Point Assignment: 100 Established Patient Point Charge: EP Level 3 (80-115)
== END 2025-02-25 10:30 | disposition home or self-care (01) ==
LOC: HODAHC 09:05
PROVIDERS: Supervising Provider Internal Medicine
DX: M86.8X7 Other osteomyelitis, ankle and foot (principal); E11.9 Type 2 diabetes mellitus without complications; Z79.4 Long term (current) use of insulin; Z86.73 Personal history of transient ischemic attack (TIA), and cerebral infarction without residual deficits
CPT/HCPCS: 99213; G0463

== ENCOUNTER → 2025-02-25 | Outpatient (CLI) | payer MEDICAID, SELFPAY | END | disposition home or self-care (01) | PROVIDERS: PCP Family Medicine; Referring Provider Family Medicine; Visit Provider Student in an Organized Health Care Education/Training Program | DX: E11.621 Type 2 diabetes mellitus with foot ulcer (principal); S91.301A Unspecified open wound, right foot, initial encounter; S98.131A Complete traumatic amputation of one right lesser toe, initial encounter; X58.XXXA Exposure to other specified factors, initial encounter; L97.516 Non-pressure chronic ulcer of other part of right foot with bone involvement without evidence of necrosis; R00.0 Tachycardia, unspecified; E11.649 Type 2 diabetes mellitus with hypoglycemia without coma; E11.51 Type 2 diabetes mellitus with diabetic peripheral angiopathy without gangrene; F32.A Depression, unspecified; Z59.01 Sheltered homelessness; F11.90 Opioid use, unspecified, uncomplicated; F17.200 Nicotine dependence, unspecified, uncomplicated; F41.8 Other specified anxiety disorders; Z79.4 Long term (current) use of insulin; J45.909 Unspecified asthma, uncomplicated | CPT/HCPCS: 11042; 99213; A9270; G0463 ==

== ENCOUNTER 2025-03-17 15:25 | Inpatient (IN) | payer MEDICAID, SELFPAY ==
[2025-03-17] VITALS (39 sets, daily range): BP systolic 95–134; BP diastolic 60–83; PULSE 97–112; RESP 7–27; TEMP 36.7–36.8; O2SAT 85–100; BMI 19.2; BMI 24.5
--- NOTE | 2025-03-17 16:10 | XR_ITS ---
Examination: Foot, right, 3 views Technique: AP, oblique, lateral views foot, 3 views Date and time of exam: March 17, 2025 1624 hours Comparison February 10, 2025 INDICATIONS: Redness swelling pain discharge this weekend involving the right foot FINDINGS: Soft tissue swelling about the first digit with large soft tissue defect Prominent bone destruction involving the distal first metatarsal and proximal phalanx first digit Periosteal new bone along the shaft of the entire first metatarsal Also periosteal new bone involving the distal second metatarsal There appears to be subluxation which may be chronic at the distal interphalangeal joint second digit IMPRESSION: Extensive osteomyelitis as above, consider MRI foot without contrast follow-up
--- NOTE | 2025-03-17 16:10 | PD.EDRME ---
Rapid Medical Screening Exam RME Arrival date/time: 03/17/25 15:25 This is a case of 49-year-old male known to have diabetes status post amputation of the right great toe 2 weeks ago came in in the emergency room due to wound reevaluation patient states that the wound has a foul-smelling purulent discharge with pain and redness thus decided to start consult here in the emergency room Chief Complaint: Wound Recheck / Suture Removal Time Seen by Provider: 03/17/25 15:35 Vital signs: Vital Signs Temperature 98.1 F 03/17/25 16:05 Pulse Rate 112 H 03/17/25 16:05 Respiratory Rate 19 03/17/25 16:05 Blood Pressure 95/60 03/17/25 16:05 Pulse Oximetry (%) 100 03/17/25 16:05 Oxygen Delivery Method Room Air 03/17/25 16:05
[2025-03-17 16:34] LABS: Basophils # (Auto) 0.0 Thou/mm3 (0.0-0.2); Basophils % (Auto) 0 % (0-2.5); Eosinophils # (Auto) 0.2 Thou/mm3 (0.0-0.5); Eosinophils % (Auto) 2 % (0-10); Hematocrit 26.5 % (41.0-53.0); Immature Granulocytes Auto 0.07 Thou/mm3 (0.00-0.00); Lymphocytes # (Auto) 1.9 Thou/mm3 (1.0-4.8); Lymphocytes % (Auto) 15 % (10-50); Mean Corpuscular HGB Conc 32.1 g/dl (31.0-37.0); Mean Corpuscular Hemoglobin 29.6 pg (25.0-35.0); Mean Corpuscular Volume 92 fL (80-100); Monocytes # (Auto) 0.8 Thou/mm3 (0.0-0.8); Monocytes % (Auto) 7 % (0-12); Neutrophils # (Auto) 9.9 Thou/mm3 (1.8-7.7); Neutrophils % (Auto) 76 % (37-80); Nucleated Red Blood Cell # 0.00 Thou/mm3 (0.00-0.00); Nucleated Red Blood Cell % 0 /100 WBC (0); Platelet Count 351 Thou/mm3 (140-440); RDW Standard Deviation 46.0 fL (35.1-43.9); Red Blood Count 2.87 Miln/mm3 (4.50-5.90); White Blood Count 13.0 Thou/mm3 (3.8-10.6)
[2025-03-17 16:48] LABS: Hemoglobin 8.5 g/dL (13.5-16.0)
[2025-03-17 17:04] LABS: Alanine Aminotransferase 7 U/L (10-49); Albumin, Serum 3.7 gm/dL (3.5-5.0); Albumin/Globulin Ratio 0.9 (1.2-2.2); Alkaline Phosphatase 145 U/L (46-116); Anion Gap 6 (7-16); Aspartate Amino Transferase 13 U/L (0-34); BUN/Creatinine Ratio 20 Ratio (12-20); Bilirubin,Total < 0.2 mg/dL (0.3-1.2); Blood Urea Nitrogen 20 mg/dL (9-23); Calcium 8.4 mg/dL (8.3-10.6); Calcium (Corrected) 8.6 mg/dL (8.5-10.1); Carbon Dioxide 30.8 mMol/L (20.0-31.0); Chloride 101 mMol/L (98-107); Creatinine (Component) 1.0 mg/dL (0.6-1.3); Estimated Creatinine Clearance 72.9 mL/min (>60); Globulin 4.0 gm/dL (2.3-3.5); Glucose 199 mg/dL (74-106); Osmolality,Calculated 284 (275-295); Potassium 4.2 mMol/L (3.4-5.1); Sodium 138 mMol/L (136-145); Total Protein 7.7 gm/dL (5.7-8.2); eGFR > 60 See Note
--- NOTE | 2025-03-17 17:36 | EKG_ITS ---
[facility] Test Date: 2025-03-17 Pat Name: KEV OCONNELL Department: Room: - Gender: Male [employer] Hospitalist: : 1975 Requested By: Isaak Dos Santos Order Number: [id number] Reading MD: Isaak Dos Santos Measurements Intervals [place] Rate: 103 P: 52 NV: 158 QRS: 68 QRSD: 97 T: 14 QT: 346 QTc: 454 Interpretive Statements SINUS TACHYCARDIA LOW QRS VOLTAGE IN PRECORDIAL LEADS [QRS DEFLECTION < 1.0 mV IN CHEST LEADS] INCOMPLETE RIGHT BUNDLE BRANCH BLOCK [90+ ms QRS DURATION, TERMINAL R IN V1/V2, 40+ ms S IN I/aVL/V4/V5/V6] ABNORMAL RHYTHM ECG Compared to ECG 02/13/2025 08:29:13 Low QRS voltage now present Incomplete right bundle-branch block now present Sinus rhythm no longer present Myocardial infarct finding no longer present /store/S0/[id number].pdf
--- NOTE | 2025-03-17 17:36 | XR_ITS ---
Examination: AP chest single view TECHNIQUE: AP portable sitting chest single view Date and time: March 17, 2025 1802 hours Comparison February 10, 2025 INDICATIONS: Sepsis alert today. FINDINGS: Mild prominence of the ventricle. No pneumonia or pulmonary edema. Mild osteopenia. IMPRESSION: No pneumonia or pulmonary edema
--- NOTE | 2025-03-17 17:40 | EDNOTE_ITS ---
ED Wound/Laceration-RME/HPI General Chief Complaint: Wound Recheck / Suture Removal Stated Complaint: R TOE AMPUTATION SITE BLEEDING WITH DISCHARGE Time Seen by Provider: 03/17/25 15:35 Source: patient Arrival date/time: 03/17/25 15:25 Limitations: no limitations RME / HPI RME / HPI narrative: Patient is a 49-year-old male who was admitted here recently for sepsis and an extensive right foot wound hospitalization and a subsequent amputation of the right large toe. He has untreated medical disease including diabetes, hyperlipidemia, bipolar disorder he states he came here today because he noted drainage from his dressings. He denies any fevers. He has no pain. He has no other acute complaints. Related Data Previous Rx's ?Medication ?Instructions ?Recorded aspirin 81 mg tablet,delayed 81 mg PO QDAY #30 tabs release atorvastatin 20 mg tablet 20 mg PO QPM #30 tabs blood sugar diagnostic (Accu-Chek #100 ea 02/26/25 Guide test strips) blood-glucose meter (Accu-Chek #1 ea 02/26/25 Guide Me Glucose Meter) gemfibrozil 600 mg tablet 600 mg PO BID #60 tabs 02/26 insulin glargine 100 unit/mL (3 35 unit (0.35 mL) subc ut QDAY 1 02/26/25 mL) subcutaneous pen, sensor month #10.5 mL meloxicam 7.5 mg tablet 7.5 mg PO QDAY #10 tabs 04/15 metformin 1,000 mg tablet 1,000 mg PO BID #60 tabs 04/15 pen needle, diabetic 31 gauge x #100 ea 02/26/2508/25 (1st Tier Unifine Pentips Plus) lancets (Accu-Chek Softclix #100 ea 02/27/25 Lancets) Allergies Allergy/AdvReac Type Severity Reaction Status Date / Time No Known Allergies Allergy Verified 03/17/25 15:31 Review of Systems Review of Systems Systems Reviewed: All systems reviewed, normal except as documented ED Exam General Limitations: Present no limitations General appearance: Present alert and in no apparent distress Head Head exam: Present atraumatic Eye Eye exam: Present normal appearance, PERRL and EOMI ENT ENT exam: Present normal exam, normal oropharynx and mucous membranes moist Neck Neck exam: Present normal inspection, full ROM and trachea midline Chest Chest inspection: Present normal inspection and symmetric chest wall rise Respiratory Respiratory exam: Present normal lung sounds bilaterally Cardiovascular Cardiovascular exam: Present regular rate, normal rhythm and normal heart sounds Abdominal Exam Abdominal exam: Present soft and normal bowel sounds Extremities Exam Extremities exam: Present normal inspection and full ROM Back Exam Back exam: Present normal inspection and full ROM Neurological Exam Neurological exam: Present alert and oriented X3 Psychiatric Psychiatric exam: Present normal affect Skin Skin exam: Present warm, dry, intact, normal color and other (There is a foul odor coming from the distal right stump. Purulent drainage is present, cultures were obtained. There is an open wound at the distal right foot stump measuring approximately 8 cm x 5 cm, by 4 cm.) Course Course Course Narrative: Dr. Briceno with general surgery was paged at 20:05. Dr. Rangel was contacted, we will contact Dr. Cruz Quality Measures none Orders Category Date Time Status Admit to Inpatient Status Routine Admission 03/17/25 20:56 Active Patient Condition Routine Admission 03/17/25 20:55 Ordered Activity as Tolerated Routine Care 03/17/25 20:56 Ordered Bedside Blood Glucose ACHS Care 03/17/25 20:55 Active Bedside Blood Glucose NOW Care 03/17/25 17:36 Active COVID-19 Screening Questionnaire NOW Care 03/17/25 20:32 Active [employer] Q4H START 00 Care 03/17/25 17:36 Active Continuous Pulse Oximetry NOW Care 03/17/25 20:55 Active Decision to Admit X1 Care 03/17/25 20:32 Active Education, Diabetic NOW Care 03/18/25 08:00 Ordered Flu & Pneumonia Vaccine Screen ONCE Care 03/17/25 20:55 Active Insert IV NOW Care 03/17/25 17:36 Active Miscellaneous Nursing Order NOW Care 03/17/25 20:55 Active Notify provider NEEDED Care 03/17/25 20:55 Active Obtain weight daily Care 03/17/25 20:56 Active Strict Intake and Output Routine Care 03/17/25 17:36 Ordered Consult to General Surgery Routine Cons 03/17/25 20:55 Ordered Referral OP Wound Healing Dept Routine Cons 03/17/25 20:59 Active Referral Physical Therapy Routine Cons 03/18/25 09:00 Active Referral Registered Dietitian Routine Cons 03/18/25 08:00 Active Referral Wound Care Routine Cons 03/17/25 20:59 Active Diet Carbohydrate Consistent Low Diet 03/18/25 Breakfast Active XR chest 1V SEPSIS PROTOCOL Stat Exams 03/17/25 17:36 Completed XR foot comp RT min 3V Stat Exams 03/17/25 16:10 Completed Blood Culture (Lab) Stat Lab 03/17/25 17:54 Received CBC AM DRAW Lab 03/18/25 05:00 Ordered CBC AM DRAW Lab 03/19/25 05:00 Ordered CBC AM DRAW Lab 03/20/25 05:00 Ordered CBC Stat Lab 03/17/25 16:19 Completed CMP [Comprehensive Metabolic Panel] Stat Lab 03/17/25 16:19 Completed CRP [C-Reactive Protein] Stat Lab 03/17/25 16:19 Completed Comprehensive Metabolic Panel AM DRAW Lab 03/18/25 05:00 Ordered Comprehensive Metabolic Panel AM DRAW Lab 03/19/25 05:00 Ordered Comprehensive Metabolic Panel AM DRAW Lab 03/20/25 05:00 Ordered Ferritin AM DRAW Lab 03/18/25 05:00 Ordered Iron Panel AM DRAW Lab 03/18/25 05:00 Ordered Lactic Acid [Lactate (Lactic Acid)] Stat Lab 03/17/25 17:52 Completed Magnesium AM DRAW Lab 03/18/25 05:00 Ordered Partial Thromboplastin Time Stat Lab 03/17/25 16:19 Completed Phosphorous AM DRAW Lab 03/18/25 05:00 Ordered Procalcitonin Stat Lab 03/17/25 16:19 Completed Prothrombin Time with INR Stat Lab 03/17/25 16:19 Completed Reticulocyte Count AM DRAW Lab 03/18/25 05:00 Ordered Sed Rate (ESR) Stat Lab 03/17/25 16:19 Completed Urinalysis Stat Lab 03/17/25 18:08 Completed Urine Culture Stat Lab 03/17/25 18:08 Received Acetaminophen Tab [Tylenol Tab] Med 03/17/25 20:55 Active 650 mg PO Q6H PRN Dextrose 50% Syr [D50w Syringe Abboject] Med 03/17/25 20:55 Active 25 ml IV Q15MIN PRN Dextrose 50% Syr [D50w Syringe Abboject] Med 03/17/25 20:55 Active 50 ml IV Q15MIN PRN Doxycycline Inj [Vibramycin Inj] 100 mg Med 03/17/25 17:44 Discontinued Sodium Chloride 0.9% (Pop) [NS 0.9% mini bag] 100 ml IV X1 Glucagon Inj Med 03/17/25 20:55 Active 1 mg IM Q15MIN PRN Heparin Inj Med 03/17/25 21:00 Active 5,000 unit SC Q12HR INSULIN LISPRO (AdmeLOG) [HumaLOG] Med 03/17/25 21:00 Active See Protocol SC ACHS Ondansetron Inj [Zofran Inj] Med 03/17/25 20:55 Active 4 mg IVP Q6H PRN Senna [Senokot] Med 03/17/25 20:55 Active 1 tab PO QDAY PRN Sodium Chloride 0.9% 1000 ml [Ns] 2,121 ml Med 03/17/25 18:46 Discontinued IV 2,121 mls/hr Vancomycin Inj 1,000 mg Med 03/17/25 21:15 Active Sodium Chloride 0.9% 250 ml [Ns] 250 ml IV X1 Vancomycin Pharmacy to Dose Med 03/18/25 09:00 Pending 1 each IV QDAY cefTRIAXone [Rocephin] 2 gm Med 03/17/25 17:44 Discontinued SODIUM CHLORIDE 0.9% (Popper) [Ns 0.9% (P)] 50 ml IV Q12HR cefTRIAXone [Rocephin] 2 gm Med 03/18/25 09:00 Pending SODIUM CHLORIDE 0.9% (Popper) [Ns 0.9% (P)] 50 ml IV QDAY Code Status Routine Oth 03/17/25 20:55 Ordered Late Tray Request Routine Oth 03/17/25 20:58 Active EKG (RT) Stat RT 03/17/25 17:36 Draft Vital Signs Vital signs: Vital Signs Temperature 98.1 F 03/17/25 16:05 Pulse Rate 112 H 03/17/25 16:05 Respiratory Rate 19 03/17/25 16:05 Blood Pressure 95/60 03/17/25 16:05 Pulse Oximetry (%) 100 03/17/25 16:05 Oxygen Delivery Method Room Air 03/17/25 16:05 Wound / Laceration MDM Narrative MDM Narrative:: Patient is a 49-year-old male who was admitted here recently for sepsis and an extensive right foot wound hospitalization and a subsequent amputation of the right large toe. He has untreated medical disease including diabetes, hyperlipidemia, bipolar disorder he states he came here today because he noted drainage from his dressings. He denies any fevers. He has no pain. He has no other acute complaints. On exam, patient is nontoxic-appearing. He did trigger a sepsis alert due to his vital signs, leukocytosis, and concerns for foot infection. Workup reveals leukocytosis 13,000, his metabolic panel reveals a glucose of 199, alk phos is elevated 145, CRP is 1.4, urinalysis unremarkable exception of 6 erythrocytes. Patient was started on antibiotics. Dr. Briceno with general surgery was paged at 20:05. She will refer to Dr. Gonzalez who performed the surgery. She may be contacted if he is not available. Dr. Burns was contacted and states he will follow the patient tomorrow. We will admit to medicine. Our [facility] hospitalist team was contacted and asked to admit the patient. Patient data External records reviewed:: [facility] previous records Clinical information provided by:: patient Social determinants that could affect healthcare access:: none Patient has the following chronic illnesses:: Bipolar, diabetes How is presenting disease/condition affected by chronic disease/condition?: exacerbated by Evaluation data The following diagnostics were reviewed and interpreted by me:: EKG tracing(s) (Sinus tachycardia [address] changes or dynamic T waves.) Lab and/or radiology exams considered but not ordered:: n/a Interpretation Summary: Osteomyelitis Medications / Prescriptions Medications or Prescriptions considered but not ordered:: n/a Medication administrations:: Medication Administration History Acetaminophen (Acetaminophen 325 Mg Tablet) 650 mg PO Q6H PRN PRN Reason: PAIN SCALE 1-3 (mild Stop: 04/16/25 20:54 Dextrose (Dextrose 50%-Water Inj 50 Ml Syringe) 25 ml IV Q15MIN PRN PRN Reason: BG 50-70 responsive npo pt Stop: 04/16/25 20:54 Dextrose (Dextrose 50%-Water Inj 50 Ml Syringe) 50 ml IV Q15MIN PRN PRN Reason: BG <50 OR BG <70 & pt unresponsive Stop: 04/16/25 20:54 Glucagon (Glucagon Inj 1 Mg Vial) 1 mg IM Q15MIN PRN PRN Reason: BG <70, and no IV access Heparin Sodium (Porcine) (Heparin Sod Inj 5000 Unit/Ml Vial) 5,000 unit SC Q12HR [place] Stop: 03/31/25 20:59 Ceftriaxone Sodium 2 gm/ (Sodium Chloride) 50 mls @ 100 mls/hr IV QDAY [place] Stop: 03/25/25 08:59 Vancomycin HCl 1,000 mg/ (Sodium Chloride) 250 mls @ 150 mls/hr IV X1 ONE Stop: 03/17/25 22:54 Insulin Human Lispro (Insulin Lispro (Admelog) 1 Unit/0.01 Ml Unit) 0 unit SC ACHS [place]CE[place]; Protocol Stop: 04/16/25 20:59 Ondansetron HCl (Ondansetron Inj 2 Mg/Ml Inj 2 Ml) 4 mg IVP Q6H PRN; Protocol PRN Reason: NAUSEA OR VOMITING Stop: 04/16/25 20:54 Pharmacy Consult (Vancomycin Pharmacy To Dose 1 Each Each) 1 each IV QDAY [place] Stop: 04/17/25 08:59 Sennosides (Senna Tablet) 1 tab PO QDAY PRN; Protocol PRN Reason: constipation Stop: 04/16/25 20:54 Discontinued Medications Ceftriaxone Sodium 2 gm/ (Sodium Chloride) 50 mls @ 100 mls/hr IV Q12HR [place] Stop: 03/24/25 17:43 Last Infusion: 03/17/25 18:49 Dose: Infused Documented By: Admin: 03/17/25 18:19 Dose: 100 mls/hr Documented By: SALMA Doxycycline Hyclate 100 mg/ (Sodium Chloride) 100 mls @ 100 mls/hr IV X1 ONE Stop: 03/17/25 18:43 Last Infusion: 03/17/25 20:18 Dose: Infused Documented By: Admin: 03/17/25 19:00 Dose: 100 mls/hr Documented By: SALMA Sodium Chloride (Ns) 2,121 mls @ 2,121 mls/hr 30 ml/kg infuse over 60 min (2121 ml) IV .Q1H ONE Stop: 03/17/25 19:45 Last Infusion: 03/17/25 20:18 Dose: Infused Documented By: Admin: 03/17/25 19:01 Dose: 2,121 mls/hr Documented By: SALMA See above Consultations Consultation(s) initiated? (list below): Yes Diagnosis Wound Differential Diagnosis: abscess and avulsion of skin Most likely diagnosis given after review of the tests above:: Osteomyelitis, poorly controlled diabetes Admission Indicated Admission indicated?: indicated Admission Request Was there a request for admission?: Yes Admission Attestation Admission request attestation: Discussed case with [] from Hospitalist service regarding admission. Discussed patients ED course, exam findings, labs, and radiology results. The Hospitalist [agrees,declines] to accept the patient for admission. Disposition Plan Disposition Plan: Admit Discharge Plan Plan Patient Disposition: Admit Acute Care w/in Hospital Patient condition on transfer: Stable Prescriptions/Referrals Prescriptions/Med Rec: No Action aspirin 81 mg tablet,delayed release (DR/EC) 81 mg PO QDAY Qty: 30 2RF atorvastatin 20 mg tablet 20 mg PO QPM Qty: 30 2RF (DME) Accu-Chek Guide test strips Strip See Rx Instructions .Route Qty: 100 3RF Rx Instructions: As directed (DME) blood-glucose meter [Accu-Chek Guide Me Glucose Mtr] Misc See Rx Instructions .Route Qty: 1 0RF Rx Instructions: As directed gemfibrozil 600 mg tablet 600 mg PO BID Qty: 60 2RF insulin glargine 100 unit/mL (3 mL) insulin pen, sensor 35 unit subcut QDAY 30 Days Qty: 10.5 2RF meloxicam 7.5 mg tablet 7.5 mg PO QDAY Qty: 10 1RF metformin 1,000 mg tablet 1,000 mg PO BID Qty: 60 2RF (DME) pen needle, diabetic [1st Tier Unifine Pentips Plus] 31 gauge x 1/4 needle See Rx Instructions .Route Qty: 100 2RF Rx Instructions: As directed (DME) lancets [Accu-Chek Softclix Lancets] [facility] See Rx Instructions .Route Qty: 100 3RF Rx Instructions: As directed Referrals: No Primary/Family,Physician [Primary Care Provider] - In 1 week Problem List Clinical Impression: Osteomyelitis, Diabetes Patient/Caregiver Discharge Instructions Print Language: [place]ican Stand Alone Forms: Brigitte Award Info., Patient Portal Info Letter
[2025-03-17 17:59] LABS: Sed Rate (ESR) 35 mm/hr (0-20)
[2025-03-17 18:01] LABS: INR 1.0 (0.9-1.3); Partial Thromboplastin Time 29.2 Seconds (22.0-36.0); Prothrombin Time 11.2 Seconds (9.0-12.2)
[2025-03-17 18:03] LABS: Lactate (Lactic Acid) 1.2 mMol/L (0.4-2.0)
[2025-03-17 18:13] LABS: Collection Type, Urine Voided; Squamous Epithelial Cell,Urine 0 /hpf (0-5)
[2025-03-17 18:19] LABS: C-Reactive Protein 1.4 mg/dL (0.0-0.9); Procalcitonin 0.04 ng/ml (0.0-0.49)
[2025-03-17] MEDS: cefTRIAXone 2 GM in SODIUM CHLORIDE 0.9% (Popper) 50 ML IV (18:19)
[2025-03-17 18:20] LABS: Bilirubin,Urine Negative (Negative); Blood,Urine Negative (Negative); Clarity,Urine Clear (Clear/Hazy); Color,Urine Yellow (Lt Yel-Yel); Glucose, Urine 2+ (Negative); Hyaline Casts,Urine < 1 /hpf (0-1); Ketones,Urine Negative (Negative); Leukocyte Esterase,Urine Negative (Negative); Nitrite,Urine Negative (Negative); PH,Urine 6.5 (5.0-7.0); Protein,Urine 1+ (Neg - Trace); RBC,Urine 6 /hpf (0-3); Specific Gravity,Urine 1.031 (1.001-1.035); Urobilinogen,Urine 2.0 mg/dL (0.0-1.0); WBC,Urine 4 /hpf (0-5)
[2025-03-17] MEDS: DOXYCYCLINE INJ 100 MG in SODIUM CHLORIDE 0.9% (POP) 100 ML IV (19:00)
[2025-03-17] MEDS: SODIUM CHLORIDE 0.9% 1000 ML 2,121 ML 2121 ML IV (19:01)
--- NOTE | 2025-03-17 21:19 | PD.RESHP ---
Documentation for date of: 03/17/25 [facility] History of Present Illness History of present illness: Jaya Clements is a 49-year-old male with a PMH of poorly controlled insulin-dependent T2DM (s/p MTP amputation of right great toe due to gangrene and osteomyelitis), ischemic stroke of right MCA (affecting right frontoparietal lobe) in 2022, HTN, HLD, and methamphetamine use disorder who presents today with concern for pus exuding from his right foot. Patient reports that this started 3 days ago a lot of pain in the lower right leg. He recounts that he underwent MTP joint amputation of his right great toe on 02/13/2025 and had a follow-up appointment 3 weeks ago that he missed due to lacking transportation. In the ED, vitals showed: BP 95/60 HR 112 RR 19 Temp 98.1 SpO2 100% on room air ED Course: CBC showed slightly elevated WBC 13 w/ neutrophilic predominance and Hgb 8.5 but was otherwise unremarkable. CMP was notable for elevated glucose 199, alkaline phosphatase 145, and CRP 1.4. UA showed 1+ protein, 2+ glucose, and some RBCs 6/hpf. Imaging: Foot x-ray showed extensive osteomyelitis. Chest x-ray showed no pneumonia or pulmonary edema. EKG showed sinus tachycardia with incomplete RBBB but was otherwise unremarkable. In the ED, patient was given ceftriaxone, doxycycline, vancomycin, and 2 L NS. Patient was admitted for the work-up and management of osteomyelitis of the right foot. General surgery has been consulted. Review of Systems Review of Systems Narrative Review of Systems: General: Endorses insomnia. Denies fevers or chills HEENT: Denies congestion or sore throat Heart: Denies chest pain or palpitations Lungs: Denies shortness of breath or cough Abdomen: Denies abdominal pain, nausea, vomiting, constipation, diarrhea, or blood in stool Genitourinary: Denies frequency, urgency, dysuria, or hematuria Neurology: Endorses finger and leg numbness. Endorses lower right leg pain. Denies any changes in vision, weakness or difficulty speaking Review of systems otherwise negative except what is mentioned above. Past Medical History Past Medical History NEUROLOGIC: Negative Neurological Disorders or Seizures CARDIAC: Positive Cardiac Disorders, Hypercholesterolemia and Hypertension; Negative Congestive Heart Failure RESPIRATORY: Positive Smoking; Negative Chronic Obstructive Pulmonary Disease (COPD) or Asthma GASTROINTESTINAL: Negative Gastrointestinal Disorders GENITOURINARY: Negative Genitourinary Disorders or Renal Disease MUSCULOSKELETAL: Negative Musculoskeletal Disorders ENDOCRINE: Positive Endocrine Disorders and Diabetes Mellitus Type 2; Negative Diabetes Mellitus Type 1 HEMATOLOGIC: Negative Blood Disorders or Sickle Cell Disease PSYCHO/SOCIAL: Positive Recreational Drug Use, Depression and Anxiety OTHER HISTORY: Positive Hospitalization; Negative Autoimmune Disease, Down Syndrome, Developmental Delay, Shingles, Falls, Blood Transfusions, Blood Transfusion Reaction, Anesthesia Reactions, Organ Transplant, Chemotherapy, Radiation Therapy, Hyperbaric Therapy, MRSA or Cancer Surgical History SURGICAL: Negative Organ Transplant Social History SMOKING STATUS: Light (< 1 pack/day) SECOND HAND EXPOSURE: Yes SUBSTANCE USE: amphetamines and methamphetamine Past Medical History Comments PMH COMMENT: PMH: poorly controlled insulin-dependent T2DM (s/p MTP amputation of right great toe due to gangrene and osteomyelitis), ischemic stroke of right MCA (affecting right frontoparietal lobe) in 2022, HTN, HLD, methamphetamine use disorder, depression, anxiety, bipolar I disorder, agoraphobia, unspecified psychosis (episodes of hearing voices) PSH: MTP amputation of right great toe performed 02/13/2025 Medications: one of the combination metformin drugs (either Janumet or Jentadueto) Allergies: none FH: dad had heart disease w/ lupus , mom had T2DM SH: has been homeless in [place] since August, started smoking at 7, smoked 2 packs/day from age [age], still smokes around 5-10 cigarettes per day, uses weed, uses meth with last use around 2 months ago (started using at 18) Exam Vital Signs Temp Pulse Resp BP Pulse Ox O2 Del Method 98.3 F 105 H 18 134/83 H 98 Room Air 03/17/25 19:08 03/17/25 19:08 03/17/25 19:08 03/17/25 19:08 03/17/25 19:08 03/17/25 19:08 Narrative Exam Physical Exam: General: Alert, no acute distress. Head: Normocephalic, atraumatic. Eye: Normal conjunctiva, PERRL. Throat: Oral mucosa moist. No obvious lesions in oropharynx. Cardiovascular: Regular rate and rhythm, no murmur, +S1/S2. Respiratory: Lungs are clear to auscultation, respirations unlabored, no crackles, no wheezing. Gastrointestinal: Soft, nontender, non-distended. No guarding or rebound tenderness. Extremities: Warm, erythematous, swollen right foot w/ pus under bandage wraps. Right toe has been amputated. Neuro: No focal deficits observed. Conversant, moving all extremities. No overt cerebellar signs/incoordination. Psychiatric: Cooperative, appropriate affect. Results: Labs 03/17/25 16:19 03/17/25 16:19 Labs: Short CBC 03/17/25 Range/Units 16:19 WBC 13.0 H (3.8-10.6) Thou/mm3 Hgb 8.5 L (13.5-16.0) g/dL Hct 26.5 L (41.0-53.0) % Plt Count 351 (140-440) Thou/mm3 BMP 03/17/25 16:19 Sodium 138 Potassium 4.2 Chloride 101 Carbon Dioxide 30.8 BUN 20 Creatinine 1.0 Glucose 199 H Calcium 8.4 Liver Function 03/17/25 Range/Units 16:19 Total Bilirubin < 0.2 L (0.3-1.2) mg/dL AST 13 (0-34) U/L ALT 7 L (10-49) U/L Alkaline Phosphatase 145 H (46-116) U/L Albumin 3.7 (3.5-5.0) gm/dL Urine 03/17/25 Range/Units 18:08 Urine Color Yellow (Lt Yel-Yel) Urine Clarity Clear (Clear/Hazy) Urine pH 6.5 (5.0-7.0) Ur Specific [place] 1.031 (1.001-1.035) Urine Protein 1+ A (Neg - Trace) Urine Glucose (UA) 2+ A (Negative) Quality Measures Quality Measures none Medications Home Medications and Allergies Allergies Allergy/AdvReac Type Severity Reaction Status Date / Time No Known Allergies Allergy Verified 03/17/25 15:31 Visit Medications Acetaminophen (Acetaminophen 325 Mg Tablet) 650 mg PO Q6H PRN PRN Reason: PAIN SCALE 1-3 (mild Stop: 04/16/25 20:54 Dextrose (Dextrose 50%-Water Inj 50 Ml Syringe) 25 ml IV Q15MIN PRN PRN Reason: BG 50-70 responsive npo pt Stop: 04/16/25 20:54 Dextrose (Dextrose 50%-Water Inj 50 Ml Syringe) 50 ml IV Q15MIN PRN PRN Reason: BG <50 OR BG <70 & pt unresponsive Stop: 04/16/25 20:54 Glucagon (Glucagon Inj 1 Mg Vial) 1 mg IM Q15MIN PRN PRN Reason: BG <70, and no IV access Heparin Sodium (Porcine) (Heparin Sod Inj 5000 Unit/Ml Vial) 5,000 unit SC Q12HR CHAUNCEY Stop: 03/31/25 20:59 Ceftriaxone Sodium 2 gm/ (Sodium Chloride) 50 mls @ 100 mls/hr IV QDAY CHAUNCEY Stop: 03/25/25 08:59 Vancomycin HCl 1,000 mg/ (Sodium Chloride) 250 mls @ 150 mls/hr IV X1 ONE Stop: 03/17/25 22:54 Insulin Human Lispro (Insulin Lispro (Admelog) 1 Unit/0.01 Ml Unit) 0 unit SC ACHS [facility]; Protocol Stop: 04/16/25 20:59 Ondansetron HCl (Ondansetron Inj 2 Mg/Ml Inj 2 Ml) 4 mg IVP Q6H PRN; Protocol PRN Reason: NAUSEA OR VOMITING Stop: 04/16/25 20:54 Pharmacy Consult (Vancomycin Pharmacy To Dose 1 Each Each) 1 each IV QDAY CHAUNCEY Stop: 04/17/25 08:59 Sennosides (Senna Tablet) 1 tab PO QDAY PRN; Protocol PRN Reason: constipation Stop: 04/16/25 20:54 Discontinued Medications Ceftriaxone Sodium 2 gm/ (Sodium Chloride) 50 mls @ 100 mls/hr IV Q12HR CHAUNCEY Stop: 03/24/25 17:43 Last Infusion: 03/17/25 18:49 Dose: Infused Doxycycline Hyclate 100 mg/ (Sodium Chloride) 100 mls @ 100 mls/hr IV X1 ONE Stop: 03/17/25 18:43 Last Infusion: 03/17/25 20:18 Dose: Infused Sodium Chloride (Ns) 2,121 mls @ 2,121 mls/hr 30 ml/kg infuse over 60 min (2121 ml) IV .Q1H ONE Stop: 03/17/25 19:45 Last Infusion: 03/17/25 20:18 Dose: Infused Assessment & Plan Assessment Jaya Clements is a 49-year-old male with a PMH of poorly controlled insulin-dependent T2DM (s/p MTP amputation of right great toe due to gangrene and osteomyelitis), ischemic stroke of right MCA (affecting right frontoparietal lobe) in 2022, HTN, HLD, and methamphetamine use disorder who presents today with concern for pus exuding from his right foot. Patient was admitted for the work-up and management of osteomyelitis of the right foot. #Osteomyelitis (right foot) #s/p MTP amputation of right great toe (02/13/2025) #Leukocytosis #Diabetic Neuropathy Initial presentation: warm, erythematous, swollen right foot w/ pus and associated leg pain s/p MTP amputation of right great toe performed a month ago Patient did not have antibiotic regimen and missed his follow-up appointment 3 weeks ago due to lack of transportation Patient meets SIRS criteria (09/25) by the following: HR>90 (112), WBC above 12 (13.0) + source of infection (osteomyelitis of the right foot) but has no signs of end organ damage Evidence for source of infection is finding of soft tissue swelling about the first digit w/ large soft tissue defect and prominent bone destruction involving the distal first metatarsal and proximal phalanx first digit on foot X-ray suggestive of extensive osteomyelitis The above occurs in the setting of poorly-controlled T2DM and resulting diabetic neuropathy Diagnostic Inquiry -CBC, CMP -BCx Treatment Plan -IV Rocephin 2 g qD -IV vancomycin qD -General surgery consulted, awaiting recommendations #Normocytic anemia Hgb 8.5 (MCV 92, RDW 46.0) Diagnostic Inquiry -Iron panel -Ferritin -Reticulocyte count Treatment Plan -Monitor Hgb, transfuse if <7 #Chronic medical problems #T2DM #Chronic smoker #Methamphetamine use disorder #Homeless #Chronic psychiatric conditions (bipolar disorder I, unspecified psychosis, depression, anxiety, and agoraphobia) Diagnostic Inquiry -No current recommendation Treatment Plan -Insulin sliding scale -Follow up with outpatient psychiatry -Referrals for outpatient wound healing, wound care, registered dietitian, social services specialist and physical therapy Hospital Management: Disposition: pending recommendations from general surgery regarding osteomyelitis Diet: carbohydrate consistent low GI Prophylaxis: none Bowel Prophylaxis: senna DVT Prophylaxis: heparin CODE STATUS: Full Code I have examined the patient and conferred with my attending, Dr. Prado, and my senior resident, Dr. Chirinos, regarding them. Mynor Johnson, DO PGY-1 Internal Medicine Attending Provider Attestation/Addendum I attest that I was physically present for the evaluation, physical examination, lab and imaging review of the patient with the residents. I discussed the case with the residents and agree with the findings and plans of care as documented above. After examination of the patient and review of the clinical data I feel that this patient needs admission to the hospital for further treatment/evaluation. Patient is a 49 years old male with past medical history of diabetes mellitus, recent amputation of right great toe secondary to osteomyelitis and gangrene, CVA, hypertension, hyperlipidemia and methamphetamine abuse who presented to the ED with complaint of worsening right foot wound. Following his last visit, patient had improvement in his foot wound. He was not able to attend his appointments for wound care due to lack of transportation. His foot started getting progressively worse with discharge and he decided to visit the ED. In the ED, blood pressure was 95/60, pulse 112. Rest of the vitals were within normal limits, saturating well on room air. Lab results show WBC of 13, hemoglobin 8.5, glucose 199, CRP 1.4 and ESR 35. X-ray of the foot was done, which showed extensive osteomyelitis of first metatarsal and proximal phalanx of right first digit, distal second metatarsal. Chest x-ray was obtained, did not show any active disease, EKG showed sinus tachycardia without ST changes. We will admit the patient for management of osteomyelitis of right foot. We will start him on broad-spectrum IV antibiotics with Rocephin and vancomycin. We will obtain wound care, physical therapy. We will obtain cultures, general surgery consultation. Will obtain iron studies to evaluate for normocytic anemia. Patient denies any active bleeding, we will monitor his hemoglobin and transfuse if hemoglobin is less than 7. Started on insulin regimen for diabetes. Karol Prado MD
--- NOTE | 2025-03-17 21:27 | PC.NURSE ---
THIS NURSE CONTACTED ADMITTING PROVIDER ABOUT PLAN FOR PT IN REGARDS TO IF THEY ARE GOING TO GET SURGERY. HOSPITALIST STATE THEY PUT IN A CONSULT WITH SURGERY. PENDING CONSULT. THIS RN ASKED IF THEY WOULD LIKE TO HOLD HEPARIN. PER HOSPITALIST, STILL GIVE HEPARIN BECAUSE THEY DONT KNOW WHEN THE PT WILL HAVE SURGERY
[2025-03-17] MEDS: Vancomycin Inj 1,000 MG in SODIUM CHLORIDE 0.9% 250 ML 250 ML 150 MG IV (21:36)
[2025-03-17] MEDS: HEPARIN SOD INJ 5000 UNIT/ML VIAL SC (21:37)
--- NOTE | 2025-03-17 23:05 | PC.NURSE ---
Medication reconcilation cannot be completed. Patient unsure what medication he is taking.
[2025-03-18] VITALS (33 sets, daily range): BP systolic 71–129; BP diastolic 45–80; PULSE 99–132; RESP 8–50; TEMP 36.2–37.8; O2SAT 87–100; BMI 25.7
[2025-03-18] MEDS: SODIUM CHLORIDE 0.9% 1000 ML 1,000 ML 999 ML IV (04:43)
--- NOTE | 2025-03-18 04:58 | PD.RESEVENT ---
Documentation for date of: 03/18/25 Event Note Event Note: 03/18/2025: Rapid response called around 4:30 AM for patient in room 382 for hypotension with a MAP of 61 with tachycardia (heart rate in the low 100s) but rest of vitals stable. Patient seen and assessed in hospital bed awake and answering questions appropriately. Airway/breathing/circulation assessed and they are intact. Patient is being treated with IV antibiotics for osteomyelitis and has only received sepsis bolus in the ED. Will initiate 1 L IV fluid resuscitation with NS and order lactic acid. Patient's MAP improved to 71 with IV fluids barely started. Will continue to monitor the patient for any acute changes and follow-up on lactic acid. Boom Chirinos, DO PGY-2 Internal Medicine - [facility]
[2025-03-18 05:34] LABS: Lactate (Lactic Acid) 1.1 mMol/L (0.4-2.0)
--- NOTE | 2025-03-18 05:45 | PC.NURSE ---
Blood pressure after 1000ml NS bolus is 91/56 (MAP 67). Dr. Johnson notified. No new orders.
[2025-03-18 05:48] LABS: Basophils # (Auto) 0.0 Thou/mm3 (0.0-0.2); Basophils % (Auto) 0 % (0-2.5); Eosinophils # (Auto) 0.1 Thou/mm3 (0.0-0.5); Eosinophils % (Auto) 1 % (0-10); Hematocrit 24.2 % (41.0-53.0); Immature Granulocytes Auto 0.09 Thou/mm3 (0.00-0.00); Immature Reticulocyte Fraction 13.6 % (2.3-13.4); Lymphocytes # (Auto) 0.5 Thou/mm3 (1.0-4.8); Lymphocytes % (Auto) 3 % (10-50); Mean Corpuscular HGB Conc 32.6 g/dl (31.0-37.0); Mean Corpuscular Hemoglobin 30.2 pg (25.0-35.0); Mean Corpuscular Volume 92 fL (80-100); Monocytes # (Auto) 0.8 Thou/mm3 (0.0-0.8); Monocytes % (Auto) 5 % (0-12); Neutrophils # (Auto) 15.0 Thou/mm3 (1.8-7.7); Neutrophils % (Auto) 91 % (37-80); Nucleated Red Blood Cell # 0.00 Thou/mm3 (0.00-0.00); Nucleated Red Blood Cell % 0 /100 WBC (0); Platelet Count 269 Thou/mm3 (140-440); RDW Standard Deviation 46.1 fL (35.1-43.9); Red Blood Count 2.62 Miln/mm3 (4.50-5.90); Reticulocyte % (Auto) 2.1 % (0.5-1.5); Reticulocyte Absolute Auto 55.8 Biln/L (25.0-75.0); Reticulocyte Hgb Content 33.8 pg (28.0-35.0); White Blood Count 16.6 Thou/mm3 (3.8-10.6)
[2025-03-18] MEDS: SODIUM CHLORIDE 0.9% 500 ML 500 ML 999 ML IV (05:58)
[2025-03-18 06:06] LABS: Ferritin 215 ng/mL (10.5-307.3); Iron 13 mcg/dL (65-175); Percent Iron Saturation 5 % (20-55); Total Iron Binding Capacity 233 mcg/dL (250-425); Unsaturated Iron Binding 220 (225-295)
[2025-03-18 06:10] LABS: Hemoglobin 7.9 g/dL (13.5-16.0)
[2025-03-18 06:20] LABS: Alanine Aminotransferase < 7 U/L (10-49); Albumin, Serum 2.9 gm/dL (3.5-5.0); Albumin/Globulin Ratio 0.9 (1.2-2.2); Alkaline Phosphatase 107 U/L (46-116); Anion Gap 8 (7-16); Aspartate Amino Transferase 11 U/L (0-34); BUN/Creatinine Ratio 17 Ratio (12-20); Bilirubin,Total 0.2 mg/dL (0.3-1.2); Blood Urea Nitrogen 17 mg/dL (9-23); Calcium 7.5 mg/dL (8.3-10.6); Calcium (Corrected) 8.4 mg/dL (8.5-10.1); Carbon Dioxide 28.0 mMol/L (20.0-31.0); Chloride 102 mMol/L (98-107); Creatinine (Component) 1.0 mg/dL (0.6-1.3); Estimated Creatinine Clearance 87.4 mL/min (>60); Globulin 3.2 gm/dL (2.3-3.5); Glucose 194 mg/dL (74-106); Osmolality,Calculated 282 (275-295); Phosphorous 3.1 mg/dL (2.4-5.1); Potassium 4.3 mMol/L (3.4-5.1); Sodium 138 mMol/L (136-145); Total Protein 6.1 gm/dL (5.7-8.2); eGFR > 60 See Note
[2025-03-18 06:26] LABS: Magnesium < 0.5 mg/dL (1.6-2.6)
--- NOTE | 2025-03-18 06:48 | EKG_ITS ---
[facility] Test Date: 2025-03-18 Pat Name: KEV OCONNELL [facility] Gender: Male Sql Manager: CESARIO : 1975 Requested By: Basim Dill Order Number: [id number] Reading MD: Basim Dill Measurements Intervals [place] Rate: 108 P: 49 IN: 166 QRS: 87 QRSD: 90 T: 0 QT: 342 QTc: 460 Interpretive Statements SINUS TACHYCARDIA LOW QRS VOLTAGE IN PRECORDIAL LEADS POSSIBLE INFERIOR MYOCARDIAL INFARCTION , PROBABLY OLD ABNORMAL RHYTHM ECG Compared to ECG 03/17/2025 17:41:09 Myocardial infarct finding now present Incomplete right bundle-branch block no longer present /store/S0/[id number].pdf
[2025-03-18] MEDS: ALBUMIN HUMAN 25% IVPB 25 GM/100 ML BTL IV (06:59)
[2025-03-18] MEDS: RINGERS LACTATED 1000 ML 1,000 ML 999 ML IV (06:59)
[2025-03-18 07:09] LABS: Lactate (Lactic Acid) 1.2 mMol/L (0.4-2.0)
[2025-03-18] MEDS: Magnesium Sulfate 4 GM Ivpb 4 GM/50 ML BAG IV ×2 (07:15→10:35)
[2025-03-18 07:47] LABS: Procalcitonin 2.05 ng/ml (0.0-0.49)
--- NOTE | 2025-03-18 08:05 | PD.RESEVENT ---
Documentation for date of: 03/18/25 Event Note Event Note: Rapid response Rapid response was called this morning at 6:45 AM for hypotension. Patient's blood pressure was 71/46 with MAP of 58. He was tachycardic heart rate 122, breathing normally, afebrile and saturating well on room air. He denied any lightheadedness or dizziness chest pain, shortness of breath, abdominal pain or any other complaints. Examination revealed sinus tachycardia with clear breath sounds and no abdominal tenderness. Lower extremity had pitting edema 1+ on both lower extremities. Patient was given 1 L of LR x 1 and albumin 25 g x 1 which improved the blood pressure with MAP of 75. Stat labs were ordered including lactic acid, procalcitonin, BNP and EKG. ICU team is aware of the patient's low blood pressure and we will keep a close eye. Patient was downgraded to telemetry for close monitoring. Patient was seen and discussed with attending physician, Dr. Papito Dill MD, PGY 3
[2025-03-18] MEDS: INSULIN LISPRO (AdmeLOG) 1 UNIT/0.01 ML UNIT SC ×3 (08:15→20:31)
[2025-03-18] MEDS: HEPARIN SOD INJ 5000 UNIT/ML VIAL SC ×2 (08:16→20:14)
[2025-03-18] MEDS: CALCIUM CARBONATE 600 MG TABLET PO (08:16)
[2025-03-18] MEDS: PIPER/TAZO 3.375 GM PREMIX 3.375 GM/50 ML BAG IV (09:23)
--- NOTE | 2025-03-18 09:41 | ECHO_ITS ---
Transthoracic Echo Report Ht (in): Wt (lb): 166 Exam Location: Echo Lab Status: Inpatient Lime Trimmer: Yenny Lee Indications: Procedure Performed: BP: 110 / 62 HR: 109 Technical Quality: Technically difficult study MEASUREMENTS (Male / Female) Normal Values 2D ECHO LV Diastolic Diameter PLAX 5.2 cm 4.2 - 5.9 / 3.9 - 5.3 cm LV Systolic Diameter PLAX 2.9 cm IVS Diastolic Thickness 0.5 cm 0.6 - 1.0 / 0.6 - 0.9 cm LVPW Diastolic Thickness 0.9 cm 0.6 - 1.0 / 0.6 - 0.9 cm LV Relative Wall Thickness 0.3 LVOT Diameter 1.9 cm Aortic Root Diameter 3.0 cm LA Systolic Diameter LX 3.0 cm 3.0 - 4.0 / 2.7 - 3.8 cm M-MODE Aortic Root Diameter MM 2.3 cm LA Systolic Diameter MM 3.8 cm LA Ao Ratio MM 1.7 AV Cusp Separation MM 1.5 cm DOPPLER AV Peak Velocity 139.0 cm/s AV Peak Gradient 7.7 mmHg AV Mean Gradient 6.0 mmHg AV Velocity Time Integral 29.6 cm LVOT Peak Velocity 100.6 cm/s LVOT Peak Gradient 4.1 mmHg LVOT Velocity Time Integral 17.0 cm AV Area Cont Eq vti 1.6 cm? AV Area Cont Eq pk 2.1 cm? MR Peak Velocity 346.5 cm/s MR Peak Gradient 48.0 mmHg LV E' Lateral Velocity 13.8 cm/s LV E' Septal Velocity 17.3 cm/s PV Peak Velocity 97.7 cm/s PV Peak Gradient 3.8 mmHg FINDINGS Left Ventricle Normal left ventricular size, wall thickness, systolic function with no obvious regional wall motion abnormalities. Normal left ventricular diastolic filling pattern for age. The ejection fraction is visually estimated at 55-60 %. Right Ventricle The right ventricle is normal in size and systolic function. Left Atrium The left atrium is normal by two-dimensional, color flow and Doppler imaging with no structural abnormalities, no thrombus formation present. Right Atrium The right atrium is normal by two-dimensional imaging, color flow and Doppler imaging with no structural abnormalities, no thrombus formation present. Atrial Septum The interatrial septum appears normal with no evidence of a shunt. Aorta The aorta is normal by two-dimensional, color flow and Doppler interrogation. Mitral Valve The mitral valve is normal by two-dimensional, color flow and Doppler interrogation. Mild mitral regurgitation. Aortic Valve The aortic valve is trileaflet and normal by two-dimensional, color flow and Doppler interrogation. There is no significant aortic valve regurgitation. Tricuspid Valve The tricuspid valve is normal by two-dimensional, color flow and Doppler interrogation. There is trace tricuspid valve regurgitation. Pulmonic Valve The pulmonic valve is not well visualized. There is no significant pulmonic valve regurgitation. Vessels The pulmonary artery appears normal. The inferior vena cava pulmonary and hepatic veins appear normal. Pericardium The pericardium is normal by two-dimensional imaging. There is no significant pericardial effusion. CONCLUSIONS Indication:Hypotension and history of drug abuse Normal LV size and wall thickness. Estimated EF at 55-60 %. The RV is normal in size and systolic function. Mild MR. Trace TR. Corwin Carney (Electronically Signed) Final Date: 18 March 2025 18:06
--- NOTE | 2025-03-18 10:05 | XR_ITS ---
Examination: CT right foot, without contrast. 2-D sagittal reconstructions. 2-D coronal reconstructions. 3-D reconstructions. Date and time of exam:March 18, 2025 1129 hours INDICATIONS: Right foot redness swelling and pain and drainage this week CTDI: vol (mGy):4.7 DLP: (mGycm):117 Technique: Multiple 1.25 mm axial sections of the right foot without intravenous contrast have been obtained. 2-D sagittal and coronal reconstructions have been obtained. 3-D reconstructions have been obtained. Low dose protocols were performed. One or more of the following dose reduction techniques were used; automated exposure control, adjustment of the mA and/or KV according to patient size, use of iterative reconstruction technique. Findings: Prominent bone destruction involving distal first metatarsal and proximal phalanx first digit Periosteal new bone along the shaft of the first metatarsal Periosteal new bone along the shaft of the distal second metatarsal with erosions distal second metatarsal Gross bone destruction involving the distal phalanx second digit and small fracture at the base of the proximal phalanx third digit IMPRESSION: Extensive osteomyelitis as above
[2025-03-18] MEDS: VANCOMYCIN/WATER 1GM IVPB 200 ML IV (10:15)
--- NOTE | 2025-03-18 10:23 | PC.SS ---
SS rounding note; Cultures and ID rec's pending. SS will follow up on discharge plan.
[2025-03-18] MEDS: MIDODRINE 5 MG TABLET 10 MG PO ×2 (10:34→20:10)
--- NOTE | 2025-03-18 10:53 | ESCONSULT_ITS ---
<Statement entered by Nacho Day MD - 03/20/25 15:04> een before resident as she was in conference. see additional notes for details HPI Data of Consult Requesting Physician: Karol Prado MD Admitting Provider: Karol Prado MD Attending Provider: Karol Prado MD Primary Care Provider: Physician No Primary/Family Consult Narrative History of present illness: Patient is a 49-year-old male with a past medical history of poorly controlled insulin-dependent T2DM (s/p MTP amputation of right great toe due to gangrene and osteomyelitis), ischemic stroke of right MCA (affecting right frontoparietal lobe) in 2022, HTN, HLD, and methamphetamine use disorder who presents today with concern for pus exuding from his right foot. Patient reports that this started 3 days ago a lot of pain in the lower right leg. He recounts that he underwent MTP joint amputation of his right great toe on 02/13/2025 and had a follow-up appointment 3 weeks ago that he missed due to lacking transportation. In the ED, vitals showed: BP 95/60 HR 112 RR 19 Temp 98.1 SpO2 100% CBC showed slightly elevated WBC 13 w/ neutrophilic predominance and Hgb 8.5 but was otherwise unremarkable. CMP was notable for elevated glucose 199, alkaline phosphatase 145, and CRP 1.4. UA showed 1+ protein, 2+ glucose, and some RBCs 6/hpf. Imaging including foot x-ray showed extensive osteomyelitis. Chest x-ray showed no pneumonia or pulmonary edema. EKG showed sinus tachycardia with incomplete RBBB but was otherwise unremarkable. In the ED, patient was given ceftriaxone, doxycycline, vancomycin, and 2 L NS. Patient was admitted for the work-up and management of osteomyelitis of the right foot. General surgery has been consulted. ID is consulted for osteomyelitis. cc:: cc: Karol Prado MD Past Medical History Past Medical History Comments PMH COMMENT: PMH: poorly controlled insulin-dependent T2DM (s/p MTP amputation of right great toe due to gangrene and osteomyelitis), ischemic stroke of right MCA (affecting right frontoparietal lobe) in 2022, HTN, HLD, methamphetamine use disorder, depression, anxiety, bipolar I disorder, agoraphobia, unspecified psychosis (episodes of hearing voices) PSH: MTP amputation of right great toe performed 02/13/2025 Allergies: none FH: dad had heart disease w/ lupus , mom had T2DM SH: has been homeless in [place] since August, started smoking at 7, smoked 2 packs/day from age [age], still smokes around 5-10 cigarettes per day, uses weed, uses meth with last use around 2 months ago (started using at 18) Exam Vital Signs Temp Pulse Resp BP Pulse Ox O2 Del Method O2 Flow Rate 97.0 F 87 19 119/78 96 Room Air 3 03/20/25 08:00 03/20/25 08:00 03/20/25 08:00 03/20/25 08:00 03/20/25 08:00 03/20/25 04:00 03/18/25 04:39 Narrative Exam Physical Exam General: Awake and in no acute distress. Conversational and non-toxic appearing. HEENT: Normocephalic, atraumatic, mucous membranes moist. Heart: Regular rate and rhythm, normal S1 and S2, no murmurs. Lungs: Clear to auscultation with no wheezing or crackles. Abdomen: Soft, nondistended, nontender, positive bowel sounds. ?No guarding or rebound tenderness. Neurologic: Alert and oriented x3, no gross neurological deficit, and patient able to move all 4 extremities. Extremities: Right foot drainage Skin: No rash or ecchymoses. Results Labs 03/22/25 05:30 03/22/25 05:30 Labs: Short CBC 03/20/25 Range/Units 04:48 WBC 8.2 (3.8-10.6) Thou/mm3 Hgb 9.1 L (13.5-16.0) g/dL Hct 27.9 L (41.0-53.0) % Plt Count 296 (140-440) Thou/mm3 BMP 03/20/25 04:48 Sodium 137 Potassium 4.5 Chloride 101 Carbon Dioxide 28.2 BUN 15 Creatinine 0.8 Glucose 126 H Calcium 9.1 Liver Function 03/20/25 Range/Units 04:48 Total Bilirubin 0.2 L (0.3-1.2) mg/dL AST < 10 (0-34) U/L ALT < 7 L (10-49) U/L Alkaline Phosphatase 101 (46-116) U/L Albumin 3.6 (3.5-5.0) gm/dL Quality Measures Quality Measures VTE prophylaxis Medications Home Medications and Allergies Allergies Allergy/AdvReac Type Severity Reaction Status Date / Time No Known Allergies Allergy Verified 03/17/25 15:31 Visit Medications Acetaminophen (Acetaminophen 325 Mg Tablet) 650 mg PO Q6H PRN PRN Reason: PAIN SCALE 1-3 (mild Stop: 04/16/25 20:54 Cephalexin HCl (Cephalexin 250 Mg Capsule) 500 mg PO QID [facility] Stop: 03/25/25 16:59 Last Admin: 03/20/25 06:07 Dose: 500 mg Dextrose (Dextrose 50%-Water Inj 50 Ml Syringe) 25 ml IV Q15MIN PRN PRN Reason: BG 50-70 responsive npo pt Stop: 04/16/25 20:54 Dextrose (Dextrose 50%-Water Inj 50 Ml Syringe) 50 ml IV Q15MIN PRN PRN Reason: BG <50 OR BG <70 & pt unresponsive Stop: 04/16/25 20:54 Doxycycline Hyclate (Doxycycline 100 Mg Tablet) 100 mg PO BID [facility] Stop: 03/25/25 20:59 Last Admin: 03/20/25 08:41 Dose: 100 mg Glucagon (Glucagon Inj 1 Mg Vial) 1 mg IM Q15MIN PRN PRN Reason: BG <70, and no IV access Heparin Sodium (Porcine) (Heparin Sod Inj 5000 Unit/Ml Vial) 5,000 unit SC Q12HR [facility] Stop: 03/31/25 20:59 Last Admin: 03/20/25 08:41 Dose: 5,000 unit Magnesium Sulfate (Magnesium Sulfate Ivpb) 4 gm in 50 mls @ 12.5 mls/hr IV X1 ONE Stop: 03/20/25 11:52 Last Admin: 03/20/25 08:37 Dose: 12.5 mls/hr Insulin Human Lispro (Insulin Lispro (Admelog) 1 Unit/0.01 Ml Unit) 0 unit SC ACHS [facility]; Protocol Stop: 04/16/25 20:59 Last Admin: 03/20/25 07:44 Dose: Not Given Midodrine (Midodrine 5 Mg Tablet) 10 mg PO TID [facility] Stop: 04/17/25 10:29 Last Admin: 03/20/25 06:07 Dose: 10 mg Ondansetron HCl (Ondansetron Inj 2 Mg/Ml Inj 2 Ml) 4 mg IVP Q6H PRN; Protocol PRN Reason: NAUSEA OR VOMITING Stop: 04/16/25 20:54 Sennosides (Senna Tablet) 1 tab PO QDAY PRN; Protocol PRN Reason: constipation Stop: 04/16/25 20:54 Discontinued Medications Calcium Carbonate (Calcium Carbonate 600 Mg Tablet) 600 mg PO X1 ONE Stop: 03/18/25 07:11 Last Admin: 03/18/25 08:16 Dose: 600 mg Ceftriaxone Sodium 2 gm/ (Sodium Chloride) 50 mls @ 100 mls/hr IV Q12HR [facility] Stop: 03/24/25 17:43 Last Infusion: 03/17/25 18:49 Dose: Infused Doxycycline Hyclate 100 mg/ (Sodium Chloride) 100 mls @ 100 mls/hr IV X1 ONE Stop: 03/17/25 18:43 Last Infusion: 03/17/25 20:18 Dose: Infused Sodium Chloride (Ns) 2,121 mls @ 2,121 mls/hr 30 ml/kg infuse over 60 min (2121 ml) IV .Q1H ONE Stop: 03/17/25 19:45 Last Infusion: 03/17/25 20:18 Dose: Infused Ceftriaxone Sodium 2 gm/ (Sodium Chloride) 50 mls @ 100 mls/hr IV QDAY [facility] Stop: 03/25/25 08:59 Vancomycin HCl 1,000 mg/ (Sodium Chloride) 250 mls @ 150 mls/hr IV X1 ONE Stop: 03/17/25 22:54 Last Admin: 03/17/25 21:36 Dose: 150 mls/hr Sodium Chloride (Ns) 1,000 mls @ 999 mls/hr IV .Q1H1M ONE Stop: 03/18/25 05:43 Last Admin: 03/18/25 04:43 Dose: 999 mls/hr Sodium Chloride (Ns) 500 mls @ 999 mls/hr IV .Q31M [facility] Stop: 03/18/25 06:21 Last Admin: 03/18/25 05:58 Dose: 999 mls/hr Ceftriaxone Sodium/Dextrose (Rocephin/D5w 2gm) 2 gm in 50 mls @ 100 mls/hr IV QPM [facility] Stop: 03/25/25 20:59 Magnesium Sulfate (Magnesium Sulfate Ivpb) 4 gm in 50 mls @ 12.5 mls/hr IV X1 ONE Stop: 03/18/25 10:29 Last Admin: 03/18/25 07:15 Dose: 12.5 mls/hr Magnesium Sulfate (Magnesium Sulfate Ivpb) 4 gm in 50 mls @ 12.5 mls/hr IV X1 ONE Stop: 03/18/25 14:59 Last Admin: 03/18/25 10:35 Dose: 12.5 mls/hr Lactated Ringer's (Lactated Ringers) 1,000 mls @ 999 mls/hr IV .Q1H1M [facility] Stop: 03/18/25 07:45 Last Admin: 03/18/25 06:59 Dose: 999 mls/hr Albumin Human (Albuminar-25 Ivpb) 25 gm in 100 mls @ 100 mls/hr IV X1 ONE Stop: 03/18/25 07:47 Last Admin: 03/18/25 06:59 Dose: 100 mls/hr Vancomycin HCl (Vancomycin/Water 1gm Ivpb) 200 mls @ 120 mls/hr IV BID@1000,2200 [facility]; Protocol Stop: 03/25/25 09:59 Last Admin: 03/18/25 10:15 Dose: 120 mls/hr Piperacillin/Tazobactam/Dextrose (Zosyn) 3.375 gm in 50 mls @ 12.5 mls/hr IV Q8HR [facility] Stop: 03/25/25 13:59 Piperacillin/Tazobactam/Dextrose (Zosyn) 3.375 gm in 50 mls @ 100 mls/hr IV X1 ONE Stop: 03/18/25 09:14 Last Admin: 03/18/25 09:23 Dose: 100 mls/hr Magnesium Sulfate (Magnesium Sulfate Ivpb) 4 gm in 50 mls @ 12.5 mls/hr IV X1 ONE Stop: 03/19/25 10:56 Last Infusion: 03/19/25 21:11 Dose: Infused Sodium Chloride (Ns) 1,000 mls @ 100 mls/hr IV .Q10H [facility] Stop: 03/19/25 19:59 Last Infusion: 03/19/25 21:11 Dose: 0 mls/hr Pharmacy Consult (Vancomycin Pharmacy To Dose 1 Each Each) 1 each IV QDAY PRN PRN Reason: PROTOCOL Stop: 04/17/25 08:59 Assessment & Plan Plan #Osteomyelitis of right foot Patient is homeless, high risk of poor compliance CT right foot 03/18 showed extensive osteomyelitis of 1st metatarsal and proximal phalanx Labs showed WBC 16.6, procalcitonin 2.05, ESR 35, CRP 1.4 Surgery is also consulted -PO course ok, discontinued IV vancomycin and IV Zosyn -Started doxycycline 100 mg BID -Started cephalexin 500 mg QID -Syphilis test screening Patient plan of care was discussed with the attending physician, Dr. Day. Kacy Newell, PGY-3
--- NOTE | 2025-03-18 10:55 | ESCONSULT_ITS ---
HPI Data of Consult Patient: new to practice Consult date: 03/18/25 Requesting Physician: Karol Prado MD Admitting Provider: Karol Prado MD Attending Provider: John Pillai MD Primary Care Provider: Physician No Primary/Family Consult Narrative Reason for consult: Hypotension History of present illness: Mr. Clements is a 49-year-old male with past medical history of poorly controlled insulin-dependent diabetes mellitus type 2, status post metatarsophalangeal amputation of right great toe due to gangrene and osteomyelitis, ischemic stroke of right MCA 2022, hypertension, hyperlipidemia and methamphetamine use disorder who presented to the [facility] emergency department with a chief complaint of right foot pain, concern of exuding pus from the right foot. Patient underwent MTP joint amputation of right great toe on 02/13/2025, has poor outpatient follow-up outpatient due to underlying transportation issues. Since admission patient had 2 rapid responses for hypotension, was given IV fluid resuscitation, and total has received about 4.6 L of IV fluid bolus since admission, noted to be hypertensive and ICU team was consulted for possible upgrade requiring pressor support. Patient seen and examined at bedside, is tired though alert and oriented x 4, bedside ultrasound done showed patient will not be fluid responsive, has been adequately fluid resuscitated, IVC is large in diameter and patient seems euvolemic for now, also VeXUS scan obtained from liver and kidney shows mild venous congestion, clinically patient does not seem fluid overloaded and seems to have received adequate fluid resuscitation. Lactate from this morning is 1.2, patient does not seem to be in state of shock requiring pressor support, seems to be chronically hypotensive. Continue to monitor patient, if patient remains hypotensive with elevated lactate, will consider upgrade to ICU. cc:: cc: Karol Prado MD Review of Systems Review of Systems Systems Reviewed: All systems reviewed, normal except as documented Past Medical History Past Medical History Comments PMH COMMENT: PMH: poorly controlled insulin-dependent T2DM (s/p MTP amputation of right great toe due to gangrene and osteomyelitis), ischemic stroke of right MCA (affecting right frontoparietal lobe) in 2022, HTN, HLD, methamphetamine use disorder, depression, anxiety, bipolar I disorder, agoraphobia, unspecified psychosis (episodes of hearing voices) PSH: MTP amputation of right great toe performed 02/13/2025 Allergies: none FH: dad had heart disease w/ lupus , mom had T2DM SH: has been homeless in [place] since August, started smoking at 7, smoked 2 packs/day from age [age], still smokes around 5-10 cigarettes per day, uses weed, uses meth with last use around 2 months ago (started using at 18) Exam Vital Signs Temp Pulse Resp BP Pulse Ox O2 Del Method O2 Flow Rate 97.9 F 109 H 15 108/61 94 L Room Air 3 03/18/25 06:41 03/18/25 10:34 03/18/25 10:15 03/18/25 10:34 03/18/25 10:15 03/18/25 04:00 03/18/25 04:39 Results Labs 03/21/25 04:05 03/21/25 04:05 Labs: Short CBC 03/17/25 03/18/25 Range/Units 16:19 05:22 WBC 13.0 H 16.6 H (3.8-10.6) Thou/mm3 Hgb 8.5 L 7.9 L (13.5-16.0) g/dL Hct 26.5 L 24.2 L (41.0-53.0) % Plt Count 351 269 D (140-440) Thou/mm3 BMP 03/17/25 03/18/25 16:19 05:22 Sodium 138 138 Potassium 4.2 4.3 Chloride 101 102 Carbon Dioxide 30.8 28.0 BUN 20 17 Creatinine 1.0 1.0 Glucose 199 H 194 H Calcium 8.4 7.5 L Liver Function 03/17/25 03/18/25 Range/Units 16:19 05:22 Total Bilirubin < 0.2 L 0.2 L (0.3-1.2) mg/dL AST 13 11 (0-34) U/L ALT 7 L < 7 L (10-49) U/L Alkaline Phosphatase 145 H 107 D (46-116) U/L Albumin 3.7 2.9 L D (3.5-5.0) gm/dL Urine 03/17/25 Range/Units 18:08 Urine Color Yellow (Lt Yel-Yel) Urine Clarity Clear (Clear/Hazy) Urine pH 6.5 (5.0-7.0) Ur Specific [place] 1.031 (1.001-1.035) Urine Protein 1+ A (Neg - Trace) Urine Glucose (UA) 2+ A (Negative) Quality Measures Quality Measures none Medications Home Medications and Allergies Allergies Allergy/AdvReac Type Severity Reaction Status Date / Time No Known Allergies Allergy Verified 03/17/25 15:31 Visit Medications Acetaminophen (Acetaminophen 325 Mg Tablet) 650 mg PO Q6H PRN PRN Reason: PAIN SCALE 1-3 (mild Stop: 04/16/25 20:54 Dextrose (Dextrose 50%-Water Inj 50 Ml Syringe) 25 ml IV Q15MIN PRN PRN Reason: BG 50-70 responsive npo pt Stop: 04/16/25 20:54 Dextrose (Dextrose 50%-Water Inj 50 Ml Syringe) 50 ml IV Q15MIN PRN PRN Reason: BG <50 OR BG <70 & pt unresponsive Stop: 04/16/25 20:54 Glucagon (Glucagon Inj 1 Mg Vial) 1 mg IM Q15MIN PRN PRN Reason: BG <70, and no IV access Heparin Sodium (Porcine) (Heparin Sod Inj 5000 Unit/Ml Vial) 5,000 unit SC Q12HR [facility] Stop: 03/31/25 20:59 Last Admin: 03/18/25 08:16 Dose: 5,000 unit Magnesium Sulfate (Magnesium Sulfate Ivpb) 4 gm in 50 mls @ 12.5 mls/hr IV X1 ONE Stop: 03/18/25 14:59 Last Admin: 03/18/25 10:35 Dose: 12.5 mls/hr Vancomycin HCl (Vancomycin/Water 1gm Ivpb) 200 mls @ 120 mls/hr IV BID@1000,2200 [facility]; Protocol Stop: 03/25/25 09:59 Last Admin: 03/18/25 10:15 Dose: 120 mls/hr Piperacillin/Tazobactam/Dextrose (Zosyn) 3.375 gm in 50 mls @ 12.5 mls/hr IV Q8HR [facility] Stop: 03/25/25 13:59 Insulin Human Lispro (Insulin Lispro (Admelog) 1 Unit/0.01 Ml Unit) 0 unit SC ACHS [facility]; Protocol Stop: 04/16/25 20:59 Last Admin: 03/18/25 08:15 Dose: 1 unit Midodrine (Midodrine 5 Mg Tablet) 10 mg PO TID [facility] Stop: 04/17/25 10:29 Last Admin: 03/18/25 10:34 Dose: 10 mg Ondansetron HCl (Ondansetron Inj 2 Mg/Ml Inj 2 Ml) 4 mg IVP Q6H PRN; Protocol PRN Reason: NAUSEA OR VOMITING Stop: 04/16/25 20:54 Pharmacy Consult (Vancomycin Pharmacy To Dose 1 Each Each) 1 each IV QDAY PRN PRN Reason: PROTOCOL Stop: 04/17/25 08:59 Sennosides (Senna Tablet) 1 tab PO QDAY PRN; Protocol PRN Reason: constipation Stop: 04/16/25 20:54 Discontinued Medications Calcium Carbonate (Calcium Carbonate 600 Mg Tablet) 600 mg PO X1 ONE Stop: 03/18/25 07:11 Last Admin: 03/18/25 08:16 Dose: 600 mg Ceftriaxone Sodium 2 gm/ (Sodium Chloride) 50 mls @ 100 mls/hr IV Q12HR [facility] Stop: 03/24/25 17:43 Last Infusion: 03/17/25 18:49 Dose: Infused Doxycycline Hyclate 100 mg/ (Sodium Chloride) 100 mls @ 100 mls/hr IV X1 ONE Stop: 03/17/25 18:43 Last Infusion: 03/17/25 20:18 Dose: Infused Sodium Chloride (Ns) 2,121 mls @ 2,121 mls/hr 30 ml/kg infuse over 60 min (2121 ml) IV .Q1H [facility] Stop: 03/17/25 19:45 Last Infusion: 03/17/25 20:18 Dose: Infused Ceftriaxone Sodium 2 gm/ (Sodium Chloride) 50 mls @ 100 mls/hr IV QDAY [facility] Stop: 03/25/25 08:59 Vancomycin HCl 1,000 mg/ (Sodium Chloride) 250 mls @ 150 mls/hr IV X1 ONE Stop: 03/17/25 22:54 Last Admin: 03/17/25 21:36 Dose: 150 mls/hr Sodium Chloride (Ns) 1,000 mls @ 999 mls/hr IV .Q1H1M [facility] Stop: 03/18/25 05:43 Last Admin: 03/18/25 04:43 Dose: 999 mls/hr Sodium Chloride (Ns) 500 mls @ 999 mls/hr IV .Q31M [facility] Stop: 03/18/25 06:21 Last Admin: 03/18/25 05:58 Dose: 999 mls/hr Ceftriaxone Sodium/Dextrose (Rocephin/D5w 2gm) 2 gm in 50 mls @ 100 mls/hr IV QPM [facility] Stop: 03/25/25 20:59 Magnesium Sulfate (Magnesium Sulfate Ivpb) 4 gm in 50 mls @ 12.5 mls/hr IV X1 [facility] Stop: 03/18/25 10:29 Last Admin: 03/18/25 07:15 Dose: 12.5 mls/hr Lactated Ringer's (Lactated Ringers) 1,000 mls @ 999 mls/hr IV .Q1H1M [facility] Stop: 03/18/25 07:45 Last Admin: 03/18/25 06:59 Dose: 999 mls/hr Albumin Human (Albuminar-25 Ivpb) 25 gm in 100 mls @ 100 mls/hr IV X1 [facility] Stop: 03/18/25 07:47 Last Admin: 03/18/25 06:59 Dose: 100 mls/hr Piperacillin/Tazobactam/Dextrose (Zosyn) 3.375 gm in 50 mls @ 100 mls/hr IV X1 ONE Stop: 03/18/25 09:14 Last Admin: 03/18/25 09:23 Dose: 100 mls/hr Assessment & Plan Plan Summary: Mr. Clements is a 49-year-old male with past medical history of poorly controlled insulin-dependent diabetes mellitus type 2, status post metatarsophalangeal amputation of right great toe due to gangrene and osteomyelitis, ischemic stroke of right MCA 2022, hypertension, hyperlipidemia and methamphetamine use disorder who presented to the [facility] emergency department with a chief complaint of right foot pain, was admitted for concern of osteomyelitis. #Hypotension -Bedside ultrasound done showed patient will not be fluid responsive, has been adequately fluid resuscitated, IVC is large in diameter -Patient seems euvolemic for now -Lactate from this morning is 1.2, patient does not seem to be in state of shock requiring pressor support, seems to be chronically hypotensive. -Continue to monitor patient, if patient remains hypotensive with elevated lactate, will consider upgrade to ICU. - Tachycardia can also be attributed to methamphetamine withdrawal, consider repeating a tox. screen #Cellulitis with omphalitis, right foot #SIRS +3/4 #Normocytic anemia severe hypomagnesemia #Type 2 diabetes mellitus #Methamphetamine use, suspicion of methamphetamine withdrawal Management as per primary team Case discussed with Attending Physician Dr. Rosas Mario MD Internal Medicine PGY-2 Disclaimer: This note was dictated by speech recognition. Minor errors in zigzag stitcher may be present due to voice recognition software. Attending Provider Attestation/Addendum Patient seen and examined with the above resident, Timur Mario MD. I agree with the findings, assessment, and plan of care as document except for any differences below. Patient with multiple rapid responses secondary to hypotension. Was brought down to ICU for closer monitoring on telemetry status. Patient continues to be followed by his primary medicine service. Patient was assessed by ICU team for assistance in further direction given ongoing hypotension. Notably lactic acid remains normal and there is no signs of hypoperfusion apart from low blood pressure with adequate mentation and urine output. We did perform bedside ultrasound to help direct volume resuscitation with no collapse of the IVC and vessels suggesting the patient is adequately resuscitated with potential for transitioning to excessive fluid/mild congestion. At this point patient can be continued to be monitored closely but does not need escalation or initiation of vasopressor support. Patient remains on appropriate antibiotic course per his medicine service. I suspect there is also component of methamphetamine withdrawal. Remain available in case of any needs. Total critical care time: I personally spent 30 minutes for review of physiologic parameters, directing plan of care, coordination of care with other specialists, and counseling patient at bedside. This is exclusive of time spent teaching on staff performing separate billable procedures. Patient remains at significant risk for further decompensation warranting close monitoring only available in the ICU. Patient required critical care services for sepsis secondary to osteomyelitis and hypotension secondary to hypovolemia, methamphetamine dependence/withdrawal.
--- NOTE | 2025-03-18 12:21 | ESPR_ITS ---
Exam Vital Signs Temp Pulse Resp BP Pulse Ox O2 Del Method O2 Flow Rate 98.4 F 99 17 113/70 96 Room Air 3 03/18/25 11:47 03/18/25 11:47 03/18/25 11:47 03/18/25 11:47 03/18/25 11:47 03/18/25 04:00 03/18/25 04:39 Objective - Internal Medicine Labs 03/18/25 05:22 03/18/25 05:22 Labs: Laboratory Results - last 24 hr 03/17/25 03/17/25 03/17/25 16:19 17:52 18:08 WBC 13.0 H RBC 2.87 L Hgb 8.5 L Hct 26.5 L MCV 92 MCH 29.6 MCHC 32.1 RDW Std Deviation 46.0 H Plt Count 351 Neut % (Auto) 76 Lymph % (Auto) 15 [place] % (Auto) 7 Eos % (Auto) 2 Baso % (Auto) 0 Neut # (Auto) 9.9 H Lymph # (Auto) 1.9 [place] # (Auto) 0.8 Eos # (Auto) 0.2 Baso # (Auto) 0.0 Immature Gran # (Auto) 0.07 H Absolute Nucleated RBC 0.00 Immature Gran % 1 H Nucleated RBC % 0 ESR 35 H Retic Count (auto) Absolute Retic Immature Retic Fraction Retic Hgb Content CHr PT 11.2 INR 1.0 APTT 29.2 Sodium 138 Potassium 4.2 Chloride 101 Carbon Dioxide 30.8 Anion Gap 6 L BUN 20 Creatinine 1.0 Estim Creat Clear Calc 72.9 eGFR > 60 BUN/Creatinine Ratio 20 Glucose 199 H Calculated Osmolality 284 Lactic Acid 1.2 Calcium 8.4 Corrected Calcium 8.6 Phosphorus Magnesium Iron TIBC Iron Saturation Unsat Iron Binding Ferritin Total Bilirubin < 0.2 L AST 13 ALT 7 L Alkaline Phosphatase 145 H C-Reactive Prot, Quant 1.4 H Total Protein 7.7 Albumin 3.7 Globulin 4.0 H Albumin/Globulin Ratio 0.9 L Procalcitonin 0.04 Ur Collection Type Voided Urine Color Yellow Urine Clarity Clear Urine pH 6.5 Ur Specific [place] 1.031 Urine Protein 1+ A Urine Glucose (UA) 2+ A Urine Ketones Negative Urine Blood Negative Urine Nitrite Negative Urine Bilirubin Negative Urine Urobilinogen (Auto) 2.0 Ur Leukocyte Esterase Negative Urine RBC 6 H Urine WBC 4 Ur Squamous Epith Cells 0 Urine Bacteria None Hyaline Casts < 1 03/18/25 03/18/25 05:22 06:49 WBC 16.6 H RBC 2.62 L Hgb 7.9 L Hct 24.2 L MCV 92 MCH 30.2 MCHC 32.6 RDW Std Deviation 46.1 H Plt Count 269 D Neut % (Auto) 91 H Lymph % (Auto) 3 L [place] % (Auto) 5 Eos % (Auto) 1 Baso % (Auto) 0 Neut # (Auto) 15.0 H Lymph # (Auto) 0.5 L [place] # (Auto) 0.8 Eos # (Auto) 0.1 Baso # (Auto) 0.0 Immature Gran # (Auto) 0.09 H Absolute Nucleated RBC 0.00 Immature Gran % 1 H Nucleated RBC % 0 ESR Retic Count (auto) 2.1 H Absolute Retic 55.8 Immature Retic Fraction 13.6 H Retic Hgb Content CHr 33.8 PT INR APTT Sodium 138 Potassium 4.3 Chloride 102 Carbon Dioxide 28.0 Anion Gap 8 BUN 17 Creatinine 1.0 Estim Creat Clear Calc 87.4 eGFR > 60 BUN/Creatinine Ratio 17 Glucose 194 H Calculated Osmolality 282 Lactic Acid 1.1 1.2 Calcium 7.5 L Corrected Calcium 8.4 L Phosphorus 3.1 Magnesium < 0.5 L* Iron 13 L TIBC 233 L Iron Saturation 5 L Unsat Iron Binding 220 L Ferritin 215 Total Bilirubin 0.2 L AST 11 ALT < 7 L Alkaline Phosphatase 107 D C-Reactive Prot, Quant Total Protein 6.1 Albumin 2.9 L D Globulin 3.2 Albumin/Globulin Ratio 0.9 L Procalcitonin 2.05 H Ur Collection Type Urine Color Urine Clarity Urine pH Ur Specific [place] Urine Protein Urine Glucose (UA) Urine Ketones Urine Blood Urine Nitrite Urine Bilirubin Urine Urobilinogen (Auto) Ur Leukocyte Esterase Urine RBC Urine WBC Ur Squamous Epith Cells Urine Bacteria Hyaline Casts Assessment & Plan A&P Narrative osteomyelitis of foot prior lacunar cva, 49 yoa hld dm II homelessness added some screens changed to po doxy and po keflex pending any additional surgery on foot. esr 35, so likely po rx when ready to go home. he is homeless though so adherence may be challenged by that issue Time Spent With Patient Time: Total time spent is greater than 50% in coordination of care (as documented) at patient's floor/unit and/or counseling patient:
--- NOTE | 2025-03-18 12:56 | PC.SS ---
Patient Jaya Clements is a 49 Year old male admitted for Osteomyelitis. SS met with patient at bedside to discuss discharge plan and verify demographic information, patient appeared to be alert and oriented to time,place and situation. he reports he lives out in the community. He reports his brother, Franklin Clements is patient's surrogate decision maker, [phone]. Patient reports he does not utilize any source of DME to assist with ambulation. Patient is able to complete all ADL's independently. Choice of pharmacy is [facility]. Patient reports he does not have PCP. At time of discharge patient will return back to the community. Next of kin: BrotherFranklin [phone] Discharge Plan: Community
[2025-03-18 13:04] LABS: B-Type Natriuretic Peptide 155 pg/mL (0-100)
--- NOTE | 2025-03-18 14:00 | PC.SS ---
Rounding Note: Patient downgraded to Tele. ID recommendations are pending.
--- NOTE | 2025-03-18 14:48 | ESPR_ITS ---
<Statement entered by Parris Cobos MD - 03/23/25 12:37> I reviewed above note and agree with findings and plans. I have also personally examined the patient with medicine team and went over assessment and plan with medical team including training intern and resident physician. <Statement entered by Jaya Babb MD - 03/18/25 17:45> Patient seen and examined at bedside. I discussed and supervised with the training intern physician who took care of this patient. I personally saw and examined the patient. I agree with most of the assessment and plan. Patient fatigues, reports right foot pain, minimally cooperative with initial exam. Multiple rapids called for hypotension with MAP <65, responsive to fluids. Patient denies lightheadedness, weakness. Lactate remained normal. Midodrine added. Patient on Vanc and zosyn. ID consulted, recs appreciated. Cultures pending, echo pending. Plan of care discussed with attending Dr. Cobos. Jaya Babb MD PGY-2 Documentation for date of: 03/18/25 Subjective Subjective Interval history: Patient seen and interviewed this morning. Reports no pain in the right foot and can move it. Denies fevers, chills, nausea, vomiting, muscle cramps, or headaches. States he did not eat breakfast today and feels ?always tired.? He confirms he has no housing and is currently living on [address] Overnight Events: * Rapid #1 (~4:30 AM): MAP 61 with HR in low 100s, improved with 1L NS bolus (MAP 71) * Rapid #2 (~6:30 AM): Recurrent MAP low, again responsive, mentating well. * Total IVF >4.6L since admission * Post-void bladder scan showed 320 cc residual after 250 cc output * CT foot confirmed extensive osteomyelitis * VExUS performed: IVC non-collapsible, holding fluids Exam Vital Signs Temp Pulse Resp BP Pulse Ox O2 Del Method O2 Flow Rate 98.4 F 112 H 28 H 102/71 99 Room Air 3 03/18/25 11:47 03/18/25 14:01 03/18/25 14:01 03/18/25 14:01 03/18/25 14:01 03/18/25 12:05 03/18/25 04:39 Narrative Exam General: Alert, fatigued but interactive HEENT: PERRL, moist mucosa CV: Tachycardic, regular rhythm, no murmurs Resp: Clear breath sounds, no distress Abd: Soft, NT/ND Ext: Right foot with erythema, swelling, purulent drainage from amputation site Neuro: No focal deficits Skin: Dry skin and mucosa Psych: Blunted affect but cooperative Objective Labs 03/18/25 05:22 03/18/25 05:22 Labs: Laboratory Results - last 24 hr 03/17/25 03/17/25 03/17/25 16:19 17:52 18:08 WBC 13.0 H RBC 2.87 L Hgb 8.5 L Hct 26.5 L MCV 92 MCH 29.6 MCHC 32.1 RDW Std Deviation 46.0 H Plt Count 351 Neut % (Auto) 76 Lymph % (Auto) 15 [place] % (Auto) 7 Eos % (Auto) 2 Baso % (Auto) 0 Neut # (Auto) 9.9 H Lymph # (Auto) 1.9 [place] # (Auto) 0.8 Eos # (Auto) 0.2 Baso # (Auto) 0.0 Immature Gran # (Auto) 0.07 H Absolute Nucleated RBC 0.00 Immature Gran % 1 H Nucleated RBC % 0 ESR 35 H Retic Count (auto) Absolute Retic Immature Retic Fraction Retic Hgb Content CHr PT 11.2 INR 1.0 APTT 29.2 Sodium 138 Potassium 4.2 Chloride 101 Carbon Dioxide 30.8 Anion Gap 6 L BUN 20 Creatinine 1.0 Estim Creat Clear Calc 72.9 eGFR > 60 BUN/Creatinine Ratio 20 Glucose 199 H Calculated Osmolality 284 Lactic Acid 1.2 Calcium 8.4 Corrected Calcium 8.6 Phosphorus Magnesium Iron TIBC Iron Saturation Unsat Iron Binding Ferritin Total Bilirubin < 0.2 L AST 13 ALT 7 L Alkaline Phosphatase 145 H C-Reactive Prot, Quant 1.4 H B-Natriuretic Peptide Total Protein 7.7 Albumin 3.7 Globulin 4.0 H Albumin/Globulin Ratio 0.9 L Procalcitonin 0.04 Ur Collection Type Voided Urine Color Yellow Urine Clarity Clear Urine pH 6.5 Ur Specific [place]ully 1.031 Urine Protein 1+ A Urine Glucose (UA) 2+ A Urine Ketones Negative Urine Blood Negative Urine Nitrite Negative Urine Bilirubin Negative Urine Urobilinogen (Auto) 2.0 Ur Leukocyte Esterase Negative Urine RBC 6 H Urine WBC 4 Ur Squamous Epith Cells 0 Urine Bacteria None Hyaline Casts < 1 03/18/25 03/18/25 05:22 06:49 WBC 16.6 H RBC 2.62 L Hgb 7.9 L Hct 24.2 L MCV 92 MCH 30.2 MCHC 32.6 RDW Std Deviation 46.1 H Plt Count 269 D Neut % (Auto) 91 H Lymph % (Auto) 3 L [place] % (Auto) 5 Eos % (Auto) 1 Baso % (Auto) 0 Neut # (Auto) 15.0 H Lymph # (Auto) 0.5 L [place] # (Auto) 0.8 Eos # (Auto) 0.1 Baso # (Auto) 0.0 Immature Gran # (Auto) 0.09 H Absolute Nucleated RBC 0.00 Immature Gran % 1 H Nucleated RBC % 0 ESR Retic Count (auto) 2.1 H Absolute Retic 55.8 Immature Retic Fraction 13.6 H Retic Hgb Content CHr 33.8 PT INR APTT Sodium 138 Potassium 4.3 Chloride 102 Carbon Dioxide 28.0 Anion Gap 8 BUN 17 Creatinine 1.0 Estim Creat Clear Calc 87.4 eGFR > 60 BUN/Creatinine Ratio 17 Glucose 194 H Calculated Osmolality 282 Lactic Acid 1.1 1.2 Calcium 7.5 L Corrected Calcium 8.4 L Phosphorus 3.1 Magnesium < 0.5 L* Iron 13 L TIBC 233 L Iron Saturation 5 L Unsat Iron Binding 220 L Ferritin 215 Total Bilirubin 0.2 L AST 11 ALT < 7 L Alkaline Phosphatase 107 D C-Reactive Prot, Quant B-Natriuretic Peptide 155 H Total Protein 6.1 Albumin 2.9 L D Globulin 3.2 Albumin/Globulin Ratio 0.9 L Procalcitonin 2.05 H Ur Collection Type Urine Color Urine Clarity Urine pH Ur Specific [place] Urine Protein Urine Glucose (UA) Urine Ketones Urine Blood Urine Nitrite Urine Bilirubin Urine Urobilinogen (Auto) Ur Leukocyte Esterase Urine RBC Urine WBC Ur Squamous Epith Cells Urine Bacteria Hyaline Casts Quality Measures Quality Measures VTE prophylaxis Assessment & Plan Assessment Current Active Medications: Generic Name Dose Route Start Last Admin Trade Name Freq PRN Reason Stop Dose Admin Acetaminophen 650 mg 03/17/25 20:55 Acetaminophen 325 Mg Tablet PO 04/16/25 20:54 Q6H PRN PAIN SCALE 1-3 (mild Cephalexin HCl 500 mg 03/18/25 17:00 Cephalexin 250 Mg Capsule PO 03/25/25 16:59 QID CHAUNCEY Dextrose 25 ml 03/17/25 20:55 Dextrose 50%-Water Inj 50 Ml Syringe IV 04/16/25 20:54 Q15MIN PRN BG 50-70 responsive npo pt Dextrose 50 ml 03/17/25 20:55 Dextrose 50%-Water Inj 50 Ml Syringe IV 04/16/25 20:54 Q15MIN PRN BG <50 OR BG <70 & pt unresponsive Doxycycline Hyclate 100 mg 03/18/25 21:00 Doxycycline 100 Mg Tablet PO 03/25/25 20:59 BID CHAUNCEY Glucagon 1 mg 03/17/25 20:55 Glucagon Inj 1 Mg Vial IM Q15MIN PRN BG <70, and no IV access Heparin Sodium (Porcine) 5,000 unit 03/17/25 21:00 03/18/25 08:16 Heparin Sod Inj 5000 Unit/Ml Vial SC 03/31/25 20:59 5,000 unit Q12HR CHAUNCEY Administration Magnesium Sulfate 4 gm in 50 mls @ 12.5 mls/hr 03/18/25 11:00 03/18/25 10:35 Magnesium Sulfate Ivpb IV 03/18/25 14:59 12.5 mls/hr X1 ONE Administration Insulin Human Lispro 0 unit 03/17/25 21:00 03/18/25 12:12 Insulin Lispro (Admelog) 1 Unit/0.01 Ml Unit SC 04/16/25 20:59 1 unit ACHS CHAUNCEY Administration Protocol Midodrine 10 mg 03/18/25 10:30 03/18/25 10:34 Midodrine 5 Mg Tablet PO 04/17/25 10:29 10 mg TID CHAUNCEY Administration Ondansetron HCl 4 mg 03/17/25 20:55 Ondansetron Inj 2 Mg/Ml Inj 2 Ml IVP 04/16/25 20:54 Q6H PRN NAUSEA OR VOMITING Protocol Sennosides 1 tab 03/17/25 20:55 Senna Tablet PO 04/16/25 20:54 QDAY PRN constipation Protocol Plan Jaya Clements a 49M with IDDM, prior right great toe amputation, presents with worsening right foot drainage and confirmed cellulitis with osteomyelitis, now meeting SIRS criteria with transient hypotension and currently on IV vancomycin + Zosyn. # Cellulitis with Osteomyelitis (Right Foot) 49M with IDDM, s/p MTP amputation, now presents with recurrent swelling and drainage. Imaging confirms extensive osteomyelitis with clinical signs of overlying cellulitis. CT Foot (03/18): Extensive osteomyelitis of 1st metatarsal and proximal phalanx Labs: WBC 16.6, Procalcitonin 2.05, ESR 35, CRP 1.4 Plan: * Continue IV vancomycin (03/17- ) + Zosyn (03/18- ) (adjusted from ceftriaxone) * Wound care consult * General surgery following; assess need for debridement or higher-level amputation * Monitor WBC, CRP daily * Daily limb checks for tracking erythema, signs of necrosis * Blood cultures pending # SIRS, possible evolving sepsis Patient meets SIRS criteria (09/25): * HR >90 * WBC >12 * Infectious source identified (osteomyelitis) Transient hypotension but no lactate elevation or end organ dysfunction yet. Lactate: Stable at 1.2 VExUS: IVC non-collapsible -> patient not volume depleted Plan: * Hold further IVF * Monitor MAP, mental status, UOP closely * Repeat lactate q8h * Strict I/Os * Reassess for sepsis if any deterioration in vitals, perfusion, or mental status # Normocytic Anemia (Hgb 7.9) Consistent with anemia of chronic disease/inflammation Iron 13, TIBC 233, Sat 5%, Ferritin 215 Plan: * Monitor H/H * Transfuse PRBC if Hgb <7 or symptomatic * Check reticulocyte count # Severe Hypomagnesemia <0.5 Repleted with 8g IV Mag overnight Plan: * Recheck Mg post-infusion * Replete if <1.5 * Monitor for signs of recurrence # Type 2 Diabetes Mellitus (poorly controlled) Glucose 199 on presentation, received 2 units of insulin Fingerstick test showed blood glucose of 159 Plan: * Begin sliding scale insulin today * Glucose checks QID * Consider basal insulin if persistently elevated # Urinary Retention / Volume Status Post-void residual 320 mL after 250 mL voided Patient received 4.6 L of fluid Plan: * Monitor bladder scans and UOP * Straight cath PRN * Avoid further IVF (per VExUS) * Reassess if MAP drops again Health Maintenance: Disposition: Awaiting general surgery recommendations and social work for SNF placement Feeding: Carb-consistent diet (poor PO intake today) Thromboprophylaxis: Heparin SQ GI prophylaxis: no indication currently Code Status: Full Code ----- Plan discussed with attending physician Dr. Cobos and senior resident Dr. Augustina MD PGY-1 Internal Medicine
--- NOTE | 2025-03-18 15:02 | ESCONSULT_ITS ---
RE: KEV OCONNELL : 1975 DATE OF CONSULTATION: 03/18/2025 REFERRING PHYSICIAN: Karol Prado MD REASON FOR CONSULTATION: Right great toe osteomyelitis and diabetes in a 49-year-old. HISTORY OF PRESENT ILLNESS: The patient is an unfortunate 49-year-old homeless man. He is diabetic and has some hypertension based on his medications and his admission. PAST SURGICAL HISTORY: Include only right great toe amputation about a month ago. ALLERGIES: NONE NOTED. IMMUNIZATIONS: Unavailable. FAMILY HISTORY: Noncontributory. SOCIAL HISTORY: He is homeless. He lives on [address], with a regular smoker of 5-10 cigarettes per day. no substance use for 3 months. He has no alcohol use. PHYSICAL EXAMINATION: On exam, the patient has an impressive-looking right great toe on imaging. It is wrapped. MEDICATIONS: He resumed medications for hyperlipidemia, hypertension, and diabetes. He was on them at home. I am not sure he was taking them as he is homeless. His living situation seems to be a big factor. His sed rate is fairly low at 35. CRP is pending. I am going to pick that up along with a syphilis test because of his recent recurrent stroke and make sure there are no other issues. I will check on him superficially on Tuesday. DT: 12:39:35 TT: 13:37:00 Ref: [id number] - TID: [id number] MTDD
--- NOTE | 2025-03-18 15:11 | PC.SS ---
SS follow up note; PT recommended SNF. SS sent SNF inquiry through [employer].
--- NOTE | 2025-03-18 15:38 | PD.SUROPNT ---
Date of Procedure 03/18/25 Surgeon Melina Gonzalez MD
--- NOTE | 2025-03-18 15:38 | PD.SURCONS ---
HPI Consult details Consult date: 03/18/25 Reason for consultation narrative: The patient was seen on consultation because of osteomyelitis of the first metatarsal. Patient was found to have some drainage in the wound History of present illness: Patient underwent amputation of the great toe in the past month ago. Subsequently he was lost to follow-up and he never showed up in my office. At the present time he is back with an infection Meds Home Medications and Allergies Allergies Allergy/AdvReac Type Severity Reaction Status Date / Time No Known Allergies Allergy Verified 03/17/25 15:31 Exam Vital Signs Temp Pulse Resp BP Pulse Ox O2 Del Method O2 Flow Rate 98.4 F 121 H 26 H 129/80 97 Room Air 3 03/18/25 11:47 03/18/25 15:00 03/18/25 15:00 03/18/25 15:00 03/18/25 15:00 03/18/25 15:00 03/18/25 04:39 Narrative Exam Examination revealed some drainage over the amputated site on the right foot. There is also another infection on the plantar aspect of the right foot. The second toe is swollen also Routine Extremities Exam Comments: As above she crying like that Results Results: Laboratory Laboratory Narrative: Patient has leukocytosis Results: Imaging Imaging narrative: Right foot shows further osteomyelitis involving the first metatarsal Assessment & Plan Additional Assessment Additional comments: Impression: Continued osteomyelitis of the right foot over the first metatarsal Plan Plan: Patient continue antibiotics if there is no improvement she may require transmetatarsal amputation of the right foot. Thank you
[2025-03-18 15:45] LABS: Magnesium 2.2 mg/dL (1.6-2.6)
[2025-03-18] MEDS: DOXYCYCLINE 100 MG TABLET PO (20:11)
[2025-03-19] VITALS (11 sets, daily range): BP systolic 94–128; BP diastolic 57–82; PULSE 86–100; RESP 14–17; TEMP 36.1–37.2; O2SAT 94–97
[2025-03-19] MEDS: MIDODRINE 5 MG TABLET 10 MG PO ×3 (05:10→21:14)
[2025-03-19 05:43] LABS: Basophils # (Auto) 0.0 Thou/mm3 (0.0-0.2); Basophils % (Auto) 0 % (0-2.5); Eosinophils # (Auto) 0.4 Thou/mm3 (0.0-0.5); Eosinophils % (Auto) 3 % (0-10); Hematocrit 25.2 % (41.0-53.0); Immature Granulocytes Auto 0.03 Thou/mm3 (0.00-0.00); Lymphocytes # (Auto) 1.3 Thou/mm3 (1.0-4.8); Lymphocytes % (Auto) 13 % (10-50); Mean Corpuscular HGB Conc 32.1 g/dl (31.0-37.0); Mean Corpuscular Hemoglobin 29.7 pg (25.0-35.0); Mean Corpuscular Volume 92 fL (80-100); Monocytes # (Auto) 0.5 Thou/mm3 (0.0-0.8); Monocytes % (Auto) 5 % (0-12); Neutrophils # (Auto) 8.1 Thou/mm3 (1.8-7.7); Neutrophils % (Auto) 79 % (37-80); Nucleated Red Blood Cell # 0.00 Thou/mm3 (0.00-0.00); Nucleated Red Blood Cell % 0 /100 WBC (0); Platelet Count 282 Thou/mm3 (140-440); RDW Standard Deviation 46.6 fL (35.1-43.9); Red Blood Count 2.73 Miln/mm3 (4.50-5.90); White Blood Count 10.3 Thou/mm3 (3.8-10.6)
[2025-03-19 05:50] LABS: Hemoglobin 8.1 g/dL (13.5-16.0)
[2025-03-19 06:26] LABS: Alanine Aminotransferase < 7 U/L (10-49); Albumin, Serum 3.2 gm/dL (3.5-5.0); Albumin/Globulin Ratio 1.0 (1.2-2.2); Alkaline Phosphatase 91 U/L (46-116); Anion Gap 9 (7-16); Aspartate Amino Transferase 13 U/L (0-34); BUN/Creatinine Ratio 16 Ratio (12-20); Bilirubin,Total 0.3 mg/dL (0.3-1.2); Blood Urea Nitrogen 13 mg/dL (9-23); C-Reactive Protein 11.9 mg/dL (0.0-0.9); Calcium 8.5 mg/dL (8.3-10.6); Calcium (Corrected) 9.1 mg/dL (8.5-10.1); Carbon Dioxide 27.6 mMol/L (20.0-31.0); Chloride 102 mMol/L (98-107); Creatinine (Component) 0.8 mg/dL (0.6-1.3); Estimated Creatinine Clearance 105.7 mL/min (>60); Globulin 3.2 gm/dL (2.3-3.5); Glucose 130 mg/dL (74-106); Magnesium 1.7 mg/dL (1.6-2.6); Osmolality,Calculated 279 (275-295); Phosphorous 2.5 mg/dL (2.4-5.1); Potassium 4.4 mMol/L (3.4-5.1); Sodium 139 mMol/L (136-145); Total Protein 6.4 gm/dL (5.7-8.2); eGFR > 60 See Note
[2025-03-19 06:47] LABS: Hepatitis C Antibody Non Reactive (Non React)
[2025-03-19 07:14] LABS: Syphilis Nonreactive (Nonreactive)
[2025-03-19] MEDS: INSULIN LISPRO (AdmeLOG) 1 UNIT/0.01 ML UNIT SC ×2 (07:48→20:14)
[2025-03-19] MEDS: HEPARIN SOD INJ 5000 UNIT/ML VIAL SC ×2 (08:05→20:10)
[2025-03-19] MEDS: DOXYCYCLINE 100 MG TABLET PO ×2 (08:06→20:16)
[2025-03-19] MEDS: Magnesium Sulfate 4 GM Ivpb 4 GM/50 ML BAG IV (08:06)
--- NOTE | 2025-03-19 09:10 | PC.SS ---
Addendum entered by Nyla Miguel 03/19/25 11:31: SS follow up note; SS was contacted by Ruby from [facility] [place] and she informed SS that she is not able to accept patient anymore, she informed SS that she thought she had male bed available however does not have one at the time. SS contacted Dawn from [facility] and she informed SS she is able to accept patient and will submit for auth. Dawn's contact number is [phone]. Addendum entered by Nyla Miguel 03/19/25 10:54: SS follow up note; [facility] in [place] accepted patient. SS contacted Ruby from [facility] [place] [phone]. She informed SS that they are able to accept patient, and will submit for auth. SS met with patient and he is agreeable to discharge to [facility] [place]. SS will stand by for further needs. Original Note: SS follow up note; SS expanded the search for SNF to a 55 mile radius. All local facilities in [facility] and [place] declined patient.
--- NOTE | 2025-03-19 10:56 | CHAP ---
Patient was visited by a Spiritual Care Volunteer on 03/19/2025 between 0900 and 0958 and received comfort, encouragement and/or prayer.
[2025-03-19] MEDS: SODIUM CHLORIDE 0.9% 1000 ML 1,000 ML 100 ML IV (11:33)
[2025-03-19 13:32] LABS: HIV (1&2) Antibody Rapid Non-Reactive
--- NOTE | 2025-03-19 14:05 | ESPR_ITS ---
<Statement entered by Parris Cobos MD - 03/23/25 12:38> I reviewed above note and agree with findings and plans. I have also personally examined the patient with medicine team and went over assessment and plan with medical team including recording studio intern and resident physician. <Statement entered by Jaya Babb MD - 03/19/25 16:02> Patient seen and examined at bedside. I discussed and supervised with the recording studio intern physician who took care of this patient. I personally saw and examined the patient. I agree with most of the assessment and plan. Patient doing well on antibiotics. Keflex and doxy per ID recs. Patient accepted at SNF, likely DC tomorrow. Plan of care discussed with attending Dr. Cobos. Jaya Babb MD PGY-2 Documentation for date of: 03/19/25 Subjective Subjective Interval history: Patient seen and interviewed in bed this morning. Reports that his foot feels better and continues to deny pain. Endorses chills overnight but denies fever, nausea, vomiting, diarrhea, chest pain, or shortness of breath. Denies dysuria but reports increased urination with difficulty initiating stream. He appears tired but cooperative and is aware and agreeable to discharge to SNF, stating he wants to go. Exam Vital Signs Temp Pulse Resp BP Pulse Ox O2 Del Method O2 Flow Rate 97.3 F 90 17 119/80 95 Room Air 3 03/19/25 11:57 03/19/25 13:55 03/19/25 11:57 03/19/25 13:55 03/19/25 11:57 03/19/25 11:57 03/18/25 04:39 Narrative Exam General: Alert, fatigued but interactive HEENT: PERRL, moist mucosa CV: Tachycardic, regular rhythm, no murmurs Resp: Clear breath sounds, no distress Abd: Soft, NT/ND Ext: Right foot with erythema, swelling, purulent drainage from amputation site Neuro: No focal deficits Skin: Dry skin and mucosa Psych: Blunted affect but cooperative Objective Labs 03/19/25 04:30 03/19/25 04:30 Labs: Laboratory Results - last 24 hr 03/18/25 03/19/25 14:59 04:30 WBC 10.3 D RBC 2.73 L Hgb 8.1 L Hct 25.2 L MCV 92 MCH 29.7 MCHC 32.1 RDW Std Deviation 46.6 H Plt Count 282 Neut % (Auto) 79 Lymph % (Auto) 13 [place] % (Auto) 5 Eos % (Auto) 3 Baso % (Auto) 0 Neut # (Auto) 8.1 H Lymph # (Auto) 1.3 [place] # (Auto) 0.5 Eos # (Auto) 0.4 Baso # (Auto) 0.0 Immature Gran # (Auto) 0.03 H Absolute Nucleated RBC 0.00 Immature Gran % 0 Nucleated RBC % 0 Sodium 139 Potassium 4.4 Chloride 102 Carbon Dioxide 27.6 Anion Gap 9 BUN 13 Creatinine 0.8 Estim Creat Clear Calc 105.7 eGFR > 60 BUN/Creatinine Ratio 16 Glucose 130 H D Calculated Osmolality 279 Calcium 8.5 Corrected Calcium 9.1 Phosphorus 2.5 Magnesium 2.2 1.7 Total Bilirubin 0.3 AST 13 ALT < 7 L Alkaline Phosphatase 91 C-Reactive Prot, Quant 11.9 H Total Protein 6.4 Albumin 3.2 L Globulin 3.2 Albumin/Globulin Ratio 1.0 L Syphilis Serology Nonreactive Hepatitis C Antibody Non Reactive HIV 1&2 Antibody Rapid Non-Reactive Quality Measures Quality Measures VTE prophylaxis Assessment & Plan Assessment Current Active Medications: Generic Name Dose Route Start Last Admin Trade Name Freq PRN Reason Stop Dose Admin Acetaminophen 650 mg 03/17/25 20:55 Acetaminophen 325 Mg Tablet PO 04/16/25 20:54 Q6H PRN PAIN SCALE 1-3 (mild Cephalexin HCl 500 mg 03/18/25 17:00 03/19/25 11:41 Cephalexin 250 Mg Capsule PO 03/25/25 16:59 500 mg QID CHAUNCEY Administration Dextrose 25 ml 03/17/25 20:55 Dextrose 50%-Water Inj 50 Ml Syringe IV 04/16/25 20:54 Q15MIN PRN BG 50-70 responsive npo pt Dextrose 50 ml 03/17/25 20:55 Dextrose 50%-Water Inj 50 Ml Syringe IV 04/16/25 20:54 Q15MIN PRN BG <50 OR BG <70 & pt unresponsive Doxycycline Hyclate 100 mg 03/18/25 21:00 03/19/25 08:06 Doxycycline 100 Mg Tablet PO 03/25/25 20:59 100 mg BID CHAUNCEY Administration Glucagon 1 mg 03/17/25 20:55 Glucagon Inj 1 Mg Vial IM Q15MIN PRN BG <70, and no IV access Heparin Sodium (Porcine) 5,000 unit 03/17/25 21:00 03/19/25 08:05 Heparin Sod Inj 5000 Unit/Ml Vial SC 03/31/25 20:59 5,000 unit Q12HR CHAUNCEY Administration Sodium Chloride 1,000 mls @ 100 mls/hr 03/19/25 10:00 03/19/25 11:33 Ns IV 03/19/25 19:59 100 mls/hr .Q10H CHAUNCEY Administration Insulin Human Lispro 0 unit 03/17/25 21:00 03/19/25 11:39 Insulin Lispro (Admelog) 1 Unit/0.01 Ml Unit SC 04/16/25 20:59 Not Given ACHS CHAUNCEY Protocol Midodrine 10 mg 03/18/25 10:30 03/19/25 13:55 Midodrine 5 Mg Tablet PO 04/17/25 10:29 10 mg TID CHAUNCEY Administration Ondansetron HCl 4 mg 03/17/25 20:55 Ondansetron Inj 2 Mg/Ml Inj 2 Ml IVP 04/16/25 20:54 Q6H PRN NAUSEA OR VOMITING Protocol Sennosides 1 tab 03/17/25 20:55 Senna Tablet PO 04/16/25 20:54 QDAY PRN constipation Protocol Plan 49M with IDDM and chronic right foot osteomyelitis s/p amputation, now clinically improving on oral antibiotics, cleared by surgery, accepted to SNF for discharge, pending ID follow-up. # Cellulitis with Osteomyelitis (Right Foot) Clinically improving. Patient denies pain, wound stable. CT (03/18): Extensive osteomyelitis of 1st metatarsal Surgery: Cleared -> continue current oral antibiotics Plan: * Continue Keflex 500mg QID (03/18-present) + Doxycycline 100mg BID (03/18- present) * No further surgical intervention needed * ID to follow up tomorrow (03/20) * Monitor CRP, WBC * SNF accepted in [place] --> plan for discharge tomorrow # SIRS (Improving) Previously met SIRS criteria; now clinically stable without fever or end organ dysfunction. Plan: * Monitor vitals, no current signs of sepsis * Blood and urine cultures negative after 24h * No further IVF; patient remains euvolemic (prior VExUS: IVC non-collapsible) # Normocytic Anemia, Hgb 8.1 (stable) Chronic/inflammatory; no signs of active bleeding Plan: * Continue to monitor H/H * No transfusion needed # Hypomagnesemia, (improved Mg 1.7) Responded to IV repletion Plan: * Monitor daily * Replete as needed # Urinary Hesitancy / Frequency Reports increased urination with difficulty initiating stream UA negative bladder scan pending today Plan: * Order post-void bladder scan today * Monitor for retention vs UTI # Type 2 Diabetes Mellitus Poor oral intake; glucose stable Plan: * Continue sliding scale insulin * Monitor glucose QID * Encourage nutrition as tolerated # Housing Insecurity (SNF Placement Secured) Patient is homeless but has accepted SNF placement and is eager to go Plan: * Discharge planned for tomorrow to SNF in [place] * Coordinate discharge summary and meds # Chronic Psychiatric Illness (Bipolar, psychosis, anxiety) At baseline; no acute symptoms Plan: * Monitor for behavioral changes * Psychiatry PRN Health Maintenance: Disposition: Accepted to SNF in [place], discharge planned for 03/20/25 pending ID reevaluation Feeding: Carb-consistent diet (limited intake) Thromboprophylaxis: Heparin SQ GI prophylaxis: Not on PPI/H2RA; no current indication Code Status: Full Code ----- Plan discussed with attending physician Dr. Cobos and senior resident Dr. Augustina MD PGY-1 Internal Medicine
[2025-03-20] VITALS (9 sets, daily range): BP systolic 93–119; BP diastolic 57–78; PULSE 58–88; RESP 16–19; TEMP 36.1–37; O2SAT 93–97
[2025-03-20 05:46] LABS: Basophils # (Auto) 0.0 Thou/mm3 (0.0-0.2); Basophils % (Auto) 0 % (0-2.5); Eosinophils # (Auto) 0.4 Thou/mm3 (0.0-0.5); Eosinophils % (Auto) 5 % (0-10); Hematocrit 27.9 % (41.0-53.0); Hemoglobin 9.1 g/dL (13.5-16.0); Immature Granulocytes Auto 0.03 Thou/mm3 (0.00-0.00); Lymphocytes # (Auto) 1.5 Thou/mm3 (1.0-4.8); Lymphocytes % (Auto) 18 % (10-50); Mean Corpuscular HGB Conc 32.6 g/dl (31.0-37.0); Mean Corpuscular Hemoglobin 29.7 pg (25.0-35.0); Mean Corpuscular Volume 91 fL (80-100); Monocytes # (Auto) 0.5 Thou/mm3 (0.0-0.8); Monocytes % (Auto) 6 % (0-12); Neutrophils # (Auto) 5.8 Thou/mm3 (1.8-7.7); Neutrophils % (Auto) 70 % (37-80); Nucleated Red Blood Cell # 0.00 Thou/mm3 (0.00-0.00); Nucleated Red Blood Cell % 0 /100 WBC (0); Platelet Count 296 Thou/mm3 (140-440); RDW Standard Deviation 44.6 fL (35.1-43.9); Red Blood Count 3.06 Miln/mm3 (4.50-5.90); White Blood Count 8.2 Thou/mm3 (3.8-10.6)
[2025-03-20] MEDS: MIDODRINE 5 MG TABLET 10 MG PO ×3 (06:07→21:17)
[2025-03-20 06:13] LABS: Alanine Aminotransferase < 7 U/L (10-49); Albumin, Serum 3.6 gm/dL (3.5-5.0); Albumin/Globulin Ratio 1.0 (1.2-2.2); Alkaline Phosphatase 101 U/L (46-116); Anion Gap 8 (7-16); Aspartate Amino Transferase < 10 U/L (0-34); BUN/Creatinine Ratio 19 Ratio (12-20); Bilirubin,Total 0.2 mg/dL (0.3-1.2); Blood Urea Nitrogen 15 mg/dL (9-23); Calcium 9.1 mg/dL (8.3-10.6); Calcium (Corrected) 9.4 mg/dL (8.5-10.1); Carbon Dioxide 28.2 mMol/L (20.0-31.0); Chloride 101 mMol/L (98-107); Creatinine (Component) 0.8 mg/dL (0.6-1.3); Estimated Creatinine Clearance 105.7 mL/min (>60); Globulin 3.6 gm/dL (2.3-3.5); Glucose 126 mg/dL (74-106); Magnesium 1.1 mg/dL (1.6-2.6); Osmolality,Calculated 276 (275-295); Phosphorous 3.6 mg/dL (2.4-5.1); Potassium 4.5 mMol/L (3.4-5.1); Sodium 137 mMol/L (136-145); Total Protein 7.2 gm/dL (5.7-8.2); eGFR > 60 See Note
[2025-03-20] MEDS: Magnesium Sulfate 4 GM Ivpb 4 GM/50 ML BAG IV ×2 (08:37→15:12)
[2025-03-20] MEDS: HEPARIN SOD INJ 5000 UNIT/ML VIAL SC ×2 (08:41→20:51)
[2025-03-20] MEDS: DOXYCYCLINE 100 MG TABLET PO ×2 (08:41→20:46)
[2025-03-20] MEDS: INSULIN LISPRO (AdmeLOG) 1 UNIT/0.01 ML UNIT SC ×2 (12:27→17:25)
--- NOTE | 2025-03-20 14:11 | PC.SS ---
SS follow up note; SS contacted Dawn from [facility] to check status on auth and she informed SS that auth was still pending, SS also attempted to contact [employer] however was unsuccessful, SS left Voicemail with contact number.
--- NOTE | 2025-03-20 14:37 | ESPR_ITS ---
<Statement entered by Parris Cobos MD - 03/23/25 12:39> I reviewed above note and agree with findings and plans. I have also personally examined the patient with medicine team and went over assessment and plan with medical team including fall intern and resident physician. <Statement entered by Jaya Babb MD - 03/20/25 17:29> Patient seen and examined at bedside. I discussed and supervised with the fall intern physician who took care of this patient. I personally saw and examined the patient. I agree with most of the assessment and plan. Pending insurance auth for SNF placement, anticipate DC tomorrow. Continue PO antibiotics Keflex and Doxycycline. Plan of care discussed with attending Dr. Cobos. Jaya Babb MD PGY-2 Documentation for date of: 03/20/25 Subjective Subjective Interval history: Patient seen and interviewed this morning. Continues to report no pain or discomfort in his foot. Denies fevers, chills, nausea, vomiting, chest pain, urinary symptoms, or bowel issues. States he is ready to discharge and understands that transfer is delayed due to insurance authorization. He remains agreeable to SNF placement. Exam Vital Signs Temp Pulse Resp BP Pulse Ox O2 Del Method O2 Flow Rate 97.8 F 88 19 110/74 95 Room Air 3 03/20/25 12:00 03/20/25 12:00 03/20/25 12:00 03/20/25 12:00 03/20/25 12:00 03/20/25 12:00 03/18/25 04:39 Narrative Exam General: Alert, fatigued but interactive HEENT: PERRL, moist mucosa CV: Regular rate, regular rhythm, no murmurs Resp: Clear breath sounds, no distress Abd: Soft, NT/ND Ext: Right foot with erythema, swelling, Decreased purulent drainage from amputation site as compared to yesterday Neuro: No focal deficits Skin: Dry skin and mucosa Psych: Blunted affect but cooperative Objective Labs 03/20/25 04:48 03/20/25 04:48 Labs: Laboratory Results - last 24 hr 03/20/25 04:48 WBC 8.2 RBC 3.06 L Hgb 9.1 L Hct 27.9 L MCV 91 MCH 29.7 MCHC 32.6 RDW Std Deviation 44.6 H Plt Count 296 Neut % (Auto) 70 Lymph % (Auto) 18 [place] % (Auto) 6 Eos % (Auto) 5 Baso % (Auto) 0 Neut # (Auto) 5.8 Lymph # (Auto) 1.5 [place] # (Auto) 0.5 Eos # (Auto) 0.4 Baso # (Auto) 0.0 Immature Gran # (Auto) 0.03 H Absolute Nucleated RBC 0.00 Immature Gran % 0 Nucleated RBC % 0 Sodium 137 Potassium 4.5 Chloride 101 Carbon Dioxide 28.2 Anion Gap 8 BUN 15 Creatinine 0.8 Estim Creat Clear Calc 105.7 eGFR > 60 BUN/Creatinine Ratio 19 Glucose 126 H Calculated Osmolality 276 Calcium 9.1 Corrected Calcium 9.4 Phosphorus 3.6 Magnesium 1.1 L Total Bilirubin 0.2 L AST < 10 ALT < 7 L Alkaline Phosphatase 101 Total Protein 7.2 Albumin 3.6 Globulin 3.6 H Albumin/Globulin Ratio 1.0 L Quality Measures Quality Measures VTE prophylaxis Assessment & Plan Assessment Current Active Medications: Generic Name Dose Route Start Last Admin Trade Name Freq PRN Reason Stop Dose Admin Acetaminophen 650 mg 03/17/25 20:55 Acetaminophen 325 Mg Tablet PO 04/16/25 20:54 Q6H PRN PAIN SCALE 1-3 (mild Cephalexin HCl 500 mg 03/18/25 17:00 03/20/25 11:50 Cephalexin 250 Mg Capsule PO 03/25/25 16:59 500 mg QID CHAUNCEY Administration Dextrose 25 ml 03/17/25 20:55 Dextrose 50%-Water Inj 50 Ml Syringe IV 04/16/25 20:54 Q15MIN PRN BG 50-70 responsive npo pt Dextrose 50 ml 03/17/25 20:55 Dextrose 50%-Water Inj 50 Ml Syringe IV 04/16/25 20:54 Q15MIN PRN BG <50 OR BG <70 & pt unresponsive Doxycycline Hyclate 100 mg 03/18/25 21:00 03/20/25 08:41 Doxycycline 100 Mg Tablet PO 03/25/25 20:59 100 mg BID CHAUNCEY Administration Glucagon 1 mg 03/17/25 20:55 Glucagon Inj 1 Mg Vial IM Q15MIN PRN BG <70, and no IV access Heparin Sodium (Porcine) 5,000 unit 03/17/25 21:00 03/20/25 08:41 Heparin Sod Inj 5000 Unit/Ml Vial SC 03/31/25 20:59 5,000 unit Q12HR CHAUNCEY Administration Insulin Human Lispro 0 unit 03/17/25 21:00 03/20/25 12:27 Insulin Lispro (Admelog) 1 Unit/0.01 Ml Unit SC 04/16/25 20:59 2 unit ACHS CHAUNCEY Administration Protocol Midodrine 10 mg 03/18/25 10:30 03/20/25 06:07 Midodrine 5 Mg Tablet PO 04/17/25 10:29 10 mg TID CHAUNCEY Administration Ondansetron HCl 4 mg 03/17/25 20:55 Ondansetron Inj 2 Mg/Ml Inj 2 Ml IVP 04/16/25 20:54 Q6H PRN NAUSEA OR VOMITING Protocol Sennosides 1 tab 03/17/25 20:55 Senna Tablet PO 04/16/25 20:54 QDAY PRN constipation Protocol Plan 49M with IDDM and chronic osteomyelitis of right foot, clinically stable on oral antibiotics, awaiting [facility] authorization approval for discharge. # Cellulitis with Osteomyelitis (Right Foot) Clinically improving. Patient denies pain, wound stable. CT (03/18): Extensive osteomyelitis of 1st metatarsal Surgery: Cleared -> continue current oral antibiotics for 6 weeks stop date 05/01/25 Plan: * Continue Keflex 500mg QID (03/18-present) + Doxycycline 100mg BID (03/18- present) * Wound care to continue at [facility] * Await ID note today to clarify total abx duration * Monitor for any signs of clinical worsening * No further surgical intervention needed # SIRS (Resolved) Previously met SIRS criteria; now clinically stable without fever or end organ dysfunction. No systemic signs of infection at this time Plan: * Monitor vitals, no current signs of sepsis * Blood and urine cultures negative * No further IVF; patient remains euvolemic (prior VExUS: IVC non-collapsible) # Normocytic Anemia, Hgb 9.1 (stable, trending up) Chronic/inflammatory; no signs of active bleeding Plan: * Continue to monitor H/H * No transfusion needed # Hypomagnesemia, (Mg 1.1) Repleted with 8 g of IV Mag Plan: * Monitor daily * Replete as needed # Urinary Hesitancy / Frequency Reports increased urination with difficulty initiating stream UA negative bladder scan pending today Plan: * Order post-void bladder scan today * Monitor for retention vs UTI # Type 2 Diabetes Mellitus Poor oral intake; glucose stable Plan: * Continue sliding scale insulin * Monitor glucose QID * Encourage nutrition as tolerated # Housing Insecurity (SNF Placement Secured) Patient accepted to SNF in [place] but awaiting insurance authorization Plan: * Remain inpatient until auth approved * Prepare discharge meds and summary * Coordinate transport once cleared # Chronic Psychiatric Illness (Bipolar, psychosis, anxiety) At baseline; no acute symptoms Plan: * Monitor for behavioral changes * Psychiatry PRN Health Maintenance: Disposition: Awaiting SNF authorization approval ? remains inpatient Feeding: Carb-consistent diet (limited intake) Thromboprophylaxis: Heparin SQ GI prophylaxis: Not on PPI/H2RA; no current indication Code Status: Full Code ----- Plan discussed with attending physician Dr. Cobos and senior resident Dr. Augustina MD PGY-1 Internal Medicine
--- NOTE | 2025-03-20 15:12 | PD.IDPROG ---
Subjective Subjective Interval history: looks like we may be treating a toe from january hereat least it is with a po agent Exam Vital Signs Temp Pulse Resp BP Pulse Ox O2 Del Method O2 Flow Rate 97.8 F 88 19 110/74 95 Room Air 3 03/20/25 12:00 03/20/25 12:00 03/20/25 12:00 03/20/25 12:00 03/20/25 12:00 03/20/25 12:00 03/18/25 04:39 Narrative Exam limited eval today Objective - Internal Medicine Labs 03/20/25 04:48 03/20/25 04:48 Labs: Laboratory Results - last 24 hr 03/20/25 04:48 WBC 8.2 RBC 3.06 L Hgb 9.1 L Hct 27.9 L MCV 91 MCH 29.7 MCHC 32.6 RDW Std Deviation 44.6 H Plt Count 296 Neut % (Auto) 70 Lymph % (Auto) 18 [place] % (Auto) 6 Eos % (Auto) 5 Baso % (Auto) 0 Neut # (Auto) 5.8 Lymph # (Auto) 1.5 [place] # (Auto) 0.5 Eos # (Auto) 0.4 Baso # (Auto) 0.0 Immature Gran # (Auto) 0.03 H Absolute Nucleated RBC 0.00 Immature Gran % 0 Nucleated RBC % 0 Sodium 137 Potassium 4.5 Chloride 101 Carbon Dioxide 28.2 Anion Gap 8 BUN 15 Creatinine 0.8 Estim Creat Clear Calc 105.7 eGFR > 60 BUN/Creatinine Ratio 19 Glucose 126 H Calculated Osmolality 276 Calcium 9.1 Corrected Calcium 9.4 Phosphorus 3.6 Magnesium 1.1 L Total Bilirubin 0.2 L AST < 10 ALT < 7 L Alkaline Phosphatase 101 Total Protein 7.2 Albumin 3.6 Globulin 3.6 H Albumin/Globulin Ratio 1.0 L Assessment & Plan A&P Narrative osteomyelitis of foot prior lacunar cva, 49 yoa hld dm II homelessness po keflex thru 04/28 pending any additional surgery on foot. esr 35, he is homeless though so adherence may be challenged by that issue will see prnas inpt with any new significant micro. Time Spent With Patient Time: Total time spent is greater than 50% in coordination of care (as documented) at patient's floor/unit and/or counseling patient:
[2025-03-21] VITALS (10 sets, daily range): BP systolic 88–116; BP diastolic 61–80; PULSE 65–90; RESP 16–18; TEMP 36.1–36.9; O2SAT 94–99
[2025-03-21 04:58] LABS: Basophils # (Auto) 0.0 Thou/mm3 (0.0-0.2); Basophils % (Auto) 0 % (0-2.5); Eosinophils # (Auto) 0.3 Thou/mm3 (0.0-0.5); Eosinophils % (Auto) 4 % (0-10); Hematocrit 30.0 % (41.0-53.0); Hemoglobin 9.6 g/dL (13.5-16.0); Immature Granulocytes Auto 0.02 Thou/mm3 (0.00-0.00); Lymphocytes # (Auto) 1.9 Thou/mm3 (1.0-4.8); Lymphocytes % (Auto) 27 % (10-50); Mean Corpuscular HGB Conc 32.0 g/dl (31.0-37.0); Mean Corpuscular Hemoglobin 29.3 pg (25.0-35.0); Mean Corpuscular Volume 92 fL (80-100); Monocytes # (Auto) 0.4 Thou/mm3 (0.0-0.8); Monocytes % (Auto) 6 % (0-12); Neutrophils # (Auto) 4.3 Thou/mm3 (1.8-7.7); Neutrophils % (Auto) 62 % (37-80); Nucleated Red Blood Cell # 0.00 Thou/mm3 (0.00-0.00); Nucleated Red Blood Cell % 0 /100 WBC (0); Platelet Count 320 Thou/mm3 (140-440); RDW Standard Deviation 46.3 fL (35.1-43.9); Red Blood Count 3.28 Miln/mm3 (4.50-5.90); White Blood Count 7.0 Thou/mm3 (3.8-10.6)
[2025-03-21] MEDS: MIDODRINE 5 MG TABLET 10 MG PO ×4 (05:20→21:11)
[2025-03-21 05:48] LABS: Alanine Aminotransferase < 7 U/L (10-49); Albumin, Serum 3.8 gm/dL (3.5-5.0); Albumin/Globulin Ratio 1.0 (1.2-2.2); Alkaline Phosphatase 108 U/L (46-116); Anion Gap 8 (7-16); Aspartate Amino Transferase 10 U/L (0-34); BUN/Creatinine Ratio 17 Ratio (12-20); Bilirubin,Total 0.2 mg/dL (0.3-1.2); Blood Urea Nitrogen 15 mg/dL (9-23); Calcium 9.0 mg/dL (8.3-10.6); Calcium (Corrected) 9.2 mg/dL (8.5-10.1); Carbon Dioxide 29.3 mMol/L (20.0-31.0); Chloride 100 mMol/L (98-107); Creatinine (Component) 0.9 mg/dL (0.6-1.3); Estimated Creatinine Clearance 93.9 mL/min (>60); Globulin 3.8 gm/dL (2.3-3.5); Glucose 133 mg/dL (74-106); Magnesium 1.5 mg/dL (1.6-2.6); Osmolality,Calculated 276 (275-295); Phosphorous 4.0 mg/dL (2.4-5.1); Potassium 4.5 mMol/L (3.4-5.1); Sodium 137 mMol/L (136-145); Total Protein 7.6 gm/dL (5.7-8.2); eGFR > 60 See Note
[2025-03-21] MEDS: Magnesium Sulfate 4 GM Ivpb 4 GM/50 ML BAG IV (08:51)
[2025-03-21] MEDS: HEPARIN SOD INJ 5000 UNIT/ML VIAL SC ×2 (08:52→21:06)
[2025-03-21] MEDS: DOXYCYCLINE 100 MG TABLET PO ×2 (08:52→21:06)
--- NOTE | 2025-03-21 09:13 | PC.NURSE ---
DOCTOR ROUNDING, ASSESS PT, MD MADE AWARE OF WOUND TO LEFT FOOT, MD TO PUT IN ORDERS FOR WOUND.
--- NOTE | 2025-03-21 10:00 | PC.SS ---
Addendum entered by Nyla Miguel 03/21/25 10:02: wrong note Original Note: Renae erika is the person to contact for any [phone] or [phone]. her address is [address] [place] [address], [phone]
--- NOTE | 2025-03-21 10:02 | PC.SS ---
Renae james is the person to contact for any needs, she is patient's support system. [phone] or [phone]: Address is [address] [place] [id number]
--- NOTE | 2025-03-21 10:13 | PC.NURSE ---
DISCHARGE ORDER, [facility] WORKING ON AUTHORIZATION TO PLACE PATIENT.
--- NOTE | 2025-03-21 10:29 | PC.SS ---
Addendum entered by Nyla Miguel 03/21/25 11:14: SS follow up note; SS attempted to contact Joanna from [employer], SS left Voicemail with SS contact number. Original Note: SS follow up note; SS contacted Dawn from [facility] in regards to auth status, she informed SS that the senior regulatory affairs specialist for her facility was currently getting auth status. SS also contacted patient's insurance [employer]'s direct line and they informed SS that at the time was in review, and the turn around time was five days, auth was submitted on 03/18.
[2025-03-21] MEDS: INSULIN LISPRO (AdmeLOG) 1 UNIT/0.01 ML UNIT SC (12:31)
--- NOTE | 2025-03-21 12:35 | PC.NURSE ---
PTS BP 116/80 HR 81, PER DR. GLIBERT FINE TO GIVE. ORDER RECEIVED, READ BACK AND CARRIED OUT.
--- NOTE | 2025-03-21 16:59 | ESPR_ITS ---
<Statement entered by Parris Cobos MD - 03/23/25 12:41> I reviewed above note and agree with findings and plans. I have also personally examined the patient with medicine team and went over assessment and plan with medical team including sports intern and resident physician. <Statement entered by Jaya Babb MD - 03/21/25 18:02> Patient seen and examined at bedside. I discussed and supervised with the sports intern physician who took care of this patient. I personally saw and examined the patient. I agree with most of the assessment and plan. Discharge pending auth for SNF. Per social, likely to be confirmed tomorrow. Plan of care discussed with attending Dr. Cobos. Jaya Babb MD PGY-2 Documentation for date of: 03/21/25 Subjective Subjective Interval history: Patient seen and interviewed this morning. Continues to report no pain or discomfort in his foot. Denies fevers, chills, nausea, vomiting, chest pain, urinary symptoms, or bowel issues. States he is ready to discharge and understands that transfer is delayed due to insurance authorization. He remains agreeable to SNF placement. Exam Vital Signs Temp Pulse Resp BP Pulse Ox O2 Del Method O2 Flow Rate 98.0 F 81 17 116/80 94 L Room Air 3 03/21/25 08:00 03/21/25 12:36 03/21/25 08:00 03/21/25 12:36 03/21/25 08:00 03/21/25 08:00 03/18/25 04:39 Narrative Exam General: Alert, fatigued but interactive HEENT: PERRL, moist mucosa CV: Regular rate, regular rhythm, no murmurs Resp: Clear breath sounds, no distress Abd: Soft, NT/ND Ext: Right foot with erythema, swelling, Decreased purulent drainage from amputation site as compared to yesterday Neuro: No focal deficits Skin: Dry skin and mucosa Psych: Blunted affect but cooperative Objective Labs 03/21/25 04:05 03/21/25 04:05 Labs: Laboratory Results - last 24 hr 03/21/25 04:05 WBC 7.0 RBC 3.28 L Hgb 9.6 L Hct 30.0 L MCV 92 MCH 29.3 MCHC 32.0 RDW Std Deviation 46.3 H Plt Count 320 Neut % (Auto) 62 Lymph % (Auto) 27 [place] % (Auto) 6 Eos % (Auto) 4 Baso % (Auto) 0 Neut # (Auto) 4.3 Lymph # (Auto) 1.9 [place] # (Auto) 0.4 Eos # (Auto) 0.3 Baso # (Auto) 0.0 Immature Gran # (Auto) 0.02 H Absolute Nucleated RBC 0.00 Immature Gran % 0 Nucleated RBC % 0 Sodium 137 Potassium 4.5 Chloride 100 Carbon Dioxide 29.3 Anion Gap 8 BUN 15 Creatinine 0.9 Estim Creat Clear Calc 93.9 eGFR > 60 BUN/Creatinine Ratio 17 Glucose 133 H Calculated Osmolality 276 Calcium 9.0 Corrected Calcium 9.2 Phosphorus 4.0 Magnesium 1.5 L Total Bilirubin 0.2 L AST 10 ALT < 7 L Alkaline Phosphatase 108 Total Protein 7.6 Albumin 3.8 Globulin 3.8 H Albumin/Globulin Ratio 1.0 L Quality Measures Quality Measures VTE prophylaxis Assessment & Plan Assessment Current Active Medications: Generic Name Dose Route Start Last Admin Trade Name Freq PRN Reason Stop Dose Admin Acetaminophen 650 mg 03/17/25 20:55 Acetaminophen 325 Mg Tablet PO 04/16/25 20:54 Q6H PRN PAIN SCALE 1-3 (mild Cephalexin HCl 500 mg 03/18/25 17:00 03/21/25 12:31 Cephalexin 250 Mg Capsule PO 03/25/25 16:59 500 mg QID CHAUNCEY Administration Dextrose 25 ml 03/17/25 20:55 Dextrose 50%-Water Inj 50 Ml Syringe IV 04/16/25 20:54 Q15MIN PRN BG 50-70 responsive npo pt Dextrose 50 ml 03/17/25 20:55 Dextrose 50%-Water Inj 50 Ml Syringe IV 04/16/25 20:54 Q15MIN PRN BG <50 OR BG <70 & pt unresponsive Doxycycline Hyclate 100 mg 03/18/25 21:00 03/21/25 08:52 Doxycycline 100 Mg Tablet PO 03/25/25 20:59 100 mg BID CHAUNCEY Administration Glucagon 1 mg 03/17/25 20:55 Glucagon Inj 1 Mg Vial IM Q15MIN PRN BG <70, and no IV access Heparin Sodium (Porcine) 5,000 unit 03/17/25 21:00 03/21/25 08:52 Heparin Sod Inj 5000 Unit/Ml Vial SC 03/31/25 20:59 5,000 unit Q12HR CHAUNCEY Administration Insulin Human Lispro 0 unit 03/17/25 21:00 03/21/25 12:31 Insulin Lispro (Admelog) 1 Unit/0.01 Ml Unit SC 04/16/25 20:59 1 unit ACHS CHAUNCEY Administration Protocol Midodrine 10 mg 03/21/25 12:00 03/21/25 12:36 Midodrine 5 Mg Tablet PO 04/20/25 11:59 10 mg QID CHAUNCEY Administration Ondansetron HCl 4 mg 03/17/25 20:55 Ondansetron Inj 2 Mg/Ml Inj 2 Ml IVP 04/16/25 20:54 Q6H PRN NAUSEA OR VOMITING Protocol Sennosides 1 tab 03/17/25 20:55 03/20/25 20:46 Senna Tablet PO 04/16/25 20:54 1 tab QDAY PRN Administration constipation Protocol Plan 49M with IDDM and chronic osteomyelitis of right foot, clinically stable on oral antibiotics, awaiting [facility] authorization approval for discharge. # Cellulitis with Osteomyelitis (Right Foot) Clinically improving. Patient denies pain, wound stable. CT (03/18): Extensive osteomyelitis of 1st metatarsal Surgery: Cleared -> continue current oral antibiotics for 6 weeks stop date 05/01/25 Plan: * Continue Keflex 500mg QID (03/18-present) + Doxycycline 100mg BID (03/18- present) * Wound care to continue at [facility] * Monitor for any signs of clinical worsening * No further surgical intervention needed # SIRS (Resolved) Previously met SIRS criteria; now clinically stable without fever or end organ dysfunction. No systemic signs of infection at this time Plan: * Monitor vitals, no current signs of sepsis * Blood and urine cultures negative * No further IVF; patient remains euvolemic (prior VExUS: IVC non-collapsible) # Normocytic Anemia, Hgb 9.6 (stable, trending up) Chronic/inflammatory; no signs of active bleeding Plan: * Continue to monitor H/H * No transfusion needed # Hypomagnesemia, (Mg 1.5) Repleted with 4 g of IV Mag Plan: * Monitor daily * Replete as needed # Urinary Hesitancy / Frequency (Resolved) Reports increased urination with difficulty initiating stream UA negative patient today states hes been urinating with no problem Plan: * Monitor for retention vs UTI # Type 2 Diabetes Mellitus Poor oral intake; glucose stable Plan: * Continue sliding scale insulin * Monitor glucose QID * Encourage nutrition as tolerated # Housing Insecurity (SNF Placement Secured) Patient accepted to SNF in [place] but awaiting insurance authorization Plan: * Remain inpatient until auth approved * Prepare discharge meds and summary * Coordinate transport once cleared # Chronic Psychiatric Illness (Bipolar, psychosis, anxiety) At baseline; no acute symptoms Plan: * Monitor for behavioral changes * Psychiatry PRN Health Maintenance: Disposition: Awaiting SNF authorization approval ? remains inpatient Feeding: Carb-consistent diet (limited intake) Thromboprophylaxis: Heparin SQ GI prophylaxis: Not on PPI/H2RA; no current indication Code Status: Full Code ----- Plan discussed with attending physician Dr. Cobos and senior resident Dr. Augustina MD PGY-1 Internal Medicine
[2025-03-22] VITALS (8 sets, daily range): BP systolic 90–96; BP diastolic 58–62; PULSE 76–85; RESP 17; TEMP 36.1; O2SAT 95–97
[2025-03-22] MEDS: MIDODRINE 5 MG TABLET 10 MG PO ×3 (05:59→17:31)
[2025-03-22 06:13] LABS: Basophils # (Auto) 0.0 Thou/mm3 (0.0-0.2); Basophils % (Auto) 0 % (0-2.5); Eosinophils # (Auto) 0.3 Thou/mm3 (0.0-0.5); Eosinophils % (Auto) 3 % (0-10); Hematocrit 29.3 % (41.0-53.0); Hemoglobin 9.5 g/dL (13.5-16.0); Immature Granulocytes Auto 0.04 Thou/mm3 (0.00-0.00); Lymphocytes # (Auto) 2.4 Thou/mm3 (1.0-4.8); Lymphocytes % (Auto) 28 % (10-50); Mean Corpuscular HGB Conc 32.4 g/dl (31.0-37.0); Mean Corpuscular Hemoglobin 29.7 pg (25.0-35.0); Mean Corpuscular Volume 92 fL (80-100); Monocytes # (Auto) 0.7 Thou/mm3 (0.0-0.8); Monocytes % (Auto) 8 % (0-12); Neutrophils # (Auto) 5.1 Thou/mm3 (1.8-7.7); Neutrophils % (Auto) 60 % (37-80); Nucleated Red Blood Cell # 0.00 Thou/mm3 (0.00-0.00); Nucleated Red Blood Cell % 0 /100 WBC (0); Platelet Count 341 Thou/mm3 (140-440); RDW Standard Deviation 45.5 fL (35.1-43.9); Red Blood Count 3.20 Miln/mm3 (4.50-5.90); White Blood Count 8.5 Thou/mm3 (3.8-10.6)
[2025-03-22 07:25] LABS: Alanine Aminotransferase < 7 U/L (10-49); Albumin, Serum 3.8 gm/dL (3.5-5.0); Albumin/Globulin Ratio 1.0 (1.2-2.2); Alkaline Phosphatase 103 U/L (46-116); Anion Gap 9 (7-16); Aspartate Amino Transferase 12 U/L (0-34); BUN/Creatinine Ratio 23 Ratio (12-20); Bilirubin,Total 0.2 mg/dL (0.3-1.2); Blood Urea Nitrogen 23 mg/dL (9-23); Calcium 9.0 mg/dL (8.3-10.6); Calcium (Corrected) 9.2 mg/dL (8.5-10.1); Carbon Dioxide 28.1 mMol/L (20.0-31.0); Chloride 98 mMol/L (98-107); Creatinine (Component) 1.0 mg/dL (0.6-1.3); Estimated Creatinine Clearance 84.5 mL/min (>60); Globulin 3.8 gm/dL (2.3-3.5); Glucose 138 mg/dL (74-106); Magnesium 1.3 mg/dL (1.6-2.6); Osmolality,Calculated 275 (275-295); Phosphorous 4.0 mg/dL (2.4-5.1); Potassium 4.9 mMol/L (3.4-5.1); Sodium 135 mMol/L (136-145); Total Protein 7.6 gm/dL (5.7-8.2); eGFR > 60 See Note
[2025-03-22] MEDS: DOXYCYCLINE 100 MG TABLET PO (08:24)
[2025-03-22] MEDS: HEPARIN SOD INJ 5000 UNIT/ML VIAL SC (08:26)
[2025-03-22] MEDS: Magnesium Sulfate 2 GM Ivpb 2 GM/50 ML BAG IV (08:34)
--- NOTE | 2025-03-22 09:35 | PD.RESPRO ---
Documentation for date of: 03/22/25 Subjective Subjective Interval history: Patient seen at bedside this morning. Continues to report no pain or discomfort in his foot. Denies fevers, chills, nausea, vomiting, chest pain, urinary symptoms, or bowel issues. No complaints at the moment. Patient reports that he is trying to get more sleep. Exam Vital Signs Temp Pulse Resp BP Pulse Ox O2 Del Method O2 Flow Rate 97.0 F 85 17 95/61 95 Room Air 3 03/22/25 07:50 03/22/25 07:50 03/22/25 07:50 03/22/25 07:50 03/22/25 07:50 03/22/25 07:50 03/21/25 16:00 Narrative Exam Ext: Right foot with erythema, swelling, Decreased purulent drainage from amputation site as compared to yesterday Physical Exam General: Awake and in no acute distress. Irritable. HEENT: Normocephalic, atraumatic, mucous membranes moist. Heart: Regular rate and rhythm, no murmurs. Lungs: Clear to auscultation with no wheezing or crackles. Abdomen: Soft, nondistended, nontender. No guarding or rebound tenderness. Neurologic: Alert and oriented x3, no gross neurological deficit, and patient able to move all 4 extremities. Extremities: No edema. Skin: No rash or ecchymoses. Psych: Blunted affect but cooperative. Objective Labs 03/22/25 05:30 03/22/25 05:30 Labs: Laboratory Results - last 24 hr 03/22/25 05:30 WBC 8.5 RBC 3.20 L Hgb 9.5 L Hct 29.3 L MCV 92 MCH 29.7 MCHC 32.4 RDW Std Deviation 45.5 H Plt Count 341 Neut % (Auto) 60 Lymph % (Auto) 28 [place] % (Auto) 8 Eos % (Auto) 3 Baso % (Auto) 0 Neut # (Auto) 5.1 Lymph # (Auto) 2.4 [place] # (Auto) 0.7 Eos # (Auto) 0.3 Baso # (Auto) 0.0 Immature Gran # (Auto) 0.04 H Absolute Nucleated RBC 0.00 Immature Gran % 1 H Nucleated RBC % 0 Sodium 135 L Potassium 4.9 Chloride 98 Carbon Dioxide 28.1 Anion Gap 9 BUN 23 Creatinine 1.0 Estim Creat Clear Calc 84.5 eGFR > 60 BUN/Creatinine Ratio 23 H Glucose 138 H Calculated Osmolality 275 Calcium 9.0 Corrected Calcium 9.2 Phosphorus 4.0 Magnesium 1.3 L Total Bilirubin 0.2 L AST 12 ALT < 7 L Alkaline Phosphatase 103 Total Protein 7.6 Albumin 3.8 Globulin 3.8 H Albumin/Globulin Ratio 1.0 L Quality Measures Quality Measures VTE prophylaxis Assessment & Plan Assessment Current Active Medications: Generic Name Dose Route Start Last Admin Trade Name Freq PRN Reason Stop Dose Admin Acetaminophen 650 mg 03/17/25 20:55 Acetaminophen 325 Mg Tablet PO 04/16/25 20:54 Q6H PRN PAIN SCALE 1-3 (mild Cephalexin HCl 500 mg 03/18/25 17:00 03/22/25 05:59 Cephalexin 250 Mg Capsule PO 03/25/25 16:59 500 mg QID CHAUNCEY Administration Dextrose 25 ml 03/17/25 20:55 Dextrose 50%-Water Inj 50 Ml Syringe IV 04/16/25 20:54 Q15MIN PRN BG 50-70 responsive npo pt Dextrose 50 ml 03/17/25 20:55 Dextrose 50%-Water Inj 50 Ml Syringe IV 04/16/25 20:54 Q15MIN PRN BG <50 OR BG <70 & pt unresponsive Doxycycline Hyclate 100 mg 03/18/25 21:00 03/22/25 08:24 Doxycycline 100 Mg Tablet PO 03/25/25 20:59 100 mg BID CHAUNCEY Administration Glucagon 1 mg 03/17/25 20:55 Glucagon Inj 1 Mg Vial IM Q15MIN PRN BG <70, and no IV access Heparin Sodium (Porcine) 5,000 unit 03/17/25 21:00 03/22/25 08:26 Heparin Sod Inj 5000 Unit/Ml Vial SC 03/31/25 20:59 5,000 unit Q12HR CHAUNCEY Administration Magnesium Sulfate 2 gm in 50 mls @ 25 mls/hr 03/22/25 08:05 03/22/25 08:34 Magnesium Sulfate Ivpb IV 03/22/25 10:04 25 mls/hr X1 ONE Administration Insulin Human Lispro 0 unit 03/17/25 21:00 03/22/25 07:50 Insulin Lispro (Admelog) 1 Unit/0.01 Ml Unit SC 04/16/25 20:59 Not Given ACHS CHAUNCEY Protocol Midodrine 10 mg 03/21/25 12:00 03/22/25 05:59 Midodrine 5 Mg Tablet PO 04/20/25 11:59 10 mg QID CHAUNCEY Administration Ondansetron HCl 4 mg 03/17/25 20:55 Ondansetron Inj 2 Mg/Ml Inj 2 Ml IVP 04/16/25 20:54 Q6H PRN NAUSEA OR VOMITING Protocol Sennosides 1 tab 03/17/25 20:55 03/20/25 20:46 Senna Tablet PO 04/16/25 20:54 1 tab QDAY PRN Administration constipation Protocol Plan Plan 49M with IDDM and chronic osteomyelitis of right foot, clinically stable on oral antibiotics, awaiting SNF authorization approval for discharge.
--- NOTE | 2025-03-22 11:40 | PC.SS ---
Addendum entered by Nyla Miguel 03/22/25 15:49: [facility] informing SS that [employer] was providing transportation at 6PM. SS will update patient and patient's nurse, Ingrid as well as [facility]. Addendum entered by Nyla Miguel 03/22/25 14:57: SS follow up note; SS contacted Dawn from [facility] and she informed SS that she confirmed with insurance that auth was still pending and being reviewed. Addendum entered by Nyla Miguel 03/22/25 12:14: SS follow up note; SS contacted [facility] providers main contact line to check status on authorization for SNF they informed SS that authorization was still pending, they informed SS that auth could take up to 5 business days and at the time it's still being reviewed. SS also contacted Dawn from [facility] and she informed SS that their fulfillment coordinator has followed up with insurance as well and [facility] informed them that auth was still pending as well. Original Note: SS follow up note; Patient is pending IP Number and hard copy, at the time SNF is not able to accept patient until hard copy is obtained.
--- NOTE | 2025-03-22 12:03 | PC.NURSE ---
pt will d/c to SNF in [place] once insurance auth is obtained. Pt and isaiah aware we are waiting for insurance auth in able to d/c today.
--- NOTE | 2025-03-22 15:00 | ESDS_ITS ---
<Statement entered by Parris Cobos MD - 03/25/25 16:11> I reviewed above note and agree with findings and plans. I have also personally examined the patient with medicine team and went over assessment and plan with medical team including risk management intern and resident physician. <Statement entered by Dorian Madrigal MD - 03/22/25 18:29> Patient was examined and case was reviewed with team including attending physician. Note reviewed, I agree with most of its contents and agree with the patient's care. Dorian Madrigal MD PGY-2 Planned Discharge Date 03/22/25 DS: Providers Provider Date of admission: 03/17/25 20:55 Primary care physician: Physician No Primary/Family Admitting Provider: Karol Prado MD Attending Provider on Admission: Parris Cobos MD Consults: 03/17/25 20:55 Consult to General Surgery Routine Comment: Osteomyelitis Consulting Provider: Melina Gonzalez 03/17/25 20:59 Referral OP Wound Healing Dept Routine Comment: Referral Wound Care Routine Comment: 03/17/25 21:11 Consult to General Surgery Stat Comment: Consulting Provider: Melina Gonzalez 03/17/25 22:59 Health Equity Referral - Knowledge Deficit Routine Comment: Positive screening for knowledge deficit needs. Health Equity Referral - Nutrition Routine Comment: Positive screening for nutrition needs. Health Equity Referral - Safety Routine Comment: Positive screening for safety needs. Health Equity Referral - Transportation Routine Comment: Positive screening for transportation needs. 03/18/25 08:00 Referral Registered Dietitian Routine Comment: 03/18/25 08:35 Consult to Infectious Diseases Routine Comment: Consulting Provider: Nacho Day 03/18/25 09:00 Referral Physical Therapy Routine Comment: Physician Instructions: 03/18/25 09:34 Consult to Classer Routine Comment: Consulting Provider: John Pillai I Attending Provider on DC: Parris Cobos MD Discharging Provider: Chuckie Pinon DO DS: Diagnosis Problem List Completed Was Problem List Reviewed/Reconciled?: Yes Hospital Course Hospital Course Hospital course: Mr. Jaya Clements is a 49-year-old male with a past medical history of insulin- dependent type 2 diabetes mellitus, hypertension, hyperlipidemia, prior ischemic stroke (R MCA in 2023), and homelessness, who was admitted on 03/17/2025 with concern for worsening drainage and swelling from his right foot, status post right great toe MTP amputation approximately one month prior. He had missed follow-up appointments due to lack of transportation and presented with signs concerning for recurrent infection. Initial evaluation revealed leukocytosis, elevated procalcitonin (2.05), and imaging including X-ray and CT confirmed extensive osteomyelitis involving the first metatarsal and proximal phalanx. He was initially treated with IV vancomycin and ceftriaxone, later transitioned to oral Keflex 500mg QID and Doxycycline 100mg BID after infectious disease consultation. General surgery was consulted and cleared the patient, recommending continuation of antibiotics with no immediate surgical intervention unless clinical worsening occurs. ID recommended syphilis and HIV testing (syphilis nonreactive; HIV pending at discharge), and planned for outpatient follow-up. The patient experienced two rapid responses on hospital day 2 for hypotension (MAP <65) that responded to fluid boluses. VExUS exam subsequently showed a non- collapsible IVC, and fluids were held due to concern for fluid overload. Patient met SIRS criteria but did not meet criteria for sepsis. Magnesium was repleted during hospitalization for a low of 1.1 with 4g IV MgSO4, and levels improved. Anemia was stable (Hgb 8.1), presumed anemia of chronic disease. Blood and urine cultures remained negative throughout hospitalization. Patient remained afebrile, denied foot pain, had stable vitals, and was eager to be discharged. He was accepted to a SNF in [place] for continued wound care and antibiotics. Discharge was initially delayed due to pending insurance authorization. He was discharged in stable condition with plans for ID and PCP follow-up arranged through the SNF. He will continue sliding scale insulin at the SNF. Patient is medically and physically stable for discharge. Diagnosis: #Cellulitis #Osteomyelitis of right foot #Type 2 diabetes mellitus (insulin dependent) #Hypomagnesemia #Normocytic anemia #Housing insecurity #SIRS (resolved) #History of chronic psychiatric illness (bipolar disorder, psychosis, anxiety) Discharge Plan: You have been started on antibiotics Keflex 500 mg 4 times daily and doxycycline 100 mg twice daily for osteomyelitis until May 01 Continue taking midodrine 10 mg 3 times a day Continue aspirin 81 mg once daily, atorvastatin 20 mg at night, meloxicam 7.5 mg as needed for pain, metformin 1000 mg twice daily Take all home medications as prescribed Follow-up with your PCP as outpatient within a week In case of emergency, call 911 and come back to the ED Case discussed with my senior resident Dr. Layo Madrigal Case discussed with my attending Dr. Papito Pinon DO PGY 1 Time Spent with Patient Time attestation: Total time spent providing and/or coordinating discharge services: Time spent: Greater than 30 minutes Exam Vital Signs Temp Pulse Resp BP Pulse Ox O2 Del Method O2 Flow Rate 97.0 F 76 17 90/61 95 Room Air 3 03/22/25 12:00 03/22/25 12:27 03/22/25 12:00 03/22/25 12:27 03/22/25 12:00 03/22/25 12:03/21/25 16:00 Narrative Exam Physical Exam General: Alert, fatigued but interactive HEENT: PERRL, moist mucosa CV: Regular rate, regular rhythm, no murmurs Resp: Clear breath sounds, no distress Abd: Soft, NT/ND Ext: Right foot with erythema, swelling, Decreased purulent drainage from amputation site as compared to yesterday Neuro: No focal deficits Skin: Dry skin and mucosa Psych: Blunted affect but cooperative Discharge Plan Plan Patient Disposition: Xfer Skilled Nsg Fac (SNF) Patient condition on transfer: Stable Care Plan Goals: You have been started on antibiotics Keflex 500 mg 4 times daily and doxycycline 100 mg twice daily for osteomyelitis until May 01 Continue taking midodrine 10 mg 3 times a day Continue aspirin 81 mg once daily, atorvastatin 20 mg at night, meloxicam 7.5 mg as needed for pain, metformin 1000 mg twice daily Take all home medications as prescribed Follow-up with your PCP as outpatient within a week In case of emergency, call 911 and come back to the ED Prescriptions/Referrals Prescriptions/Med Rec: New insulin lispro 100 unit/mL insulin pen 1 sliding scale dose subcut USEASDIRECTD Qty: 15 0RF doxycycline hyclate 100 mg capsule 100 mg PO BID 42 Days Qty: 84 0RF cephalexin 500 mg capsule 500 mg PO QID 42 Days Qty: 168 0RF midodrine 10 mg tablet 10 mg PO QID Qty: 60 0RF Continued aspirin 81 mg tablet,delayed release (DR/EC) 81 mg PO QDAY Qty: 30 2RF atorvastatin 20 mg tablet 20 mg PO QPM Qty: 30 2RF meloxicam 7.5 mg tablet 7.5 mg PO QDAY Qty: 10 1RF metformin 1,000 mg tablet 1,000 mg PO BID Qty: 60 2RF (DME) blood-glucose meter [Accu-Chek Guide Me Glucose Mtr] Misc See Rx Instructions .Route Qty: 1 0RF Rx Instructions: As directed (DME) Accu-Chek Guide test strips Strip See Rx Instructions .Route Qty: 100 3RF Rx Instructions: As directed (DME) lancets [Accu-Chek Softclix Lancets] Misc See Rx Instructions .Route Qty: 100 3RF Rx Instructions: As directed (DME) pen needle, diabetic [1st Tier Unifine Pentips Plus] 31 gauge x 1/4 n eedle See Rx Instructions .Route Qty: 100 2RF Rx Instructions: As directed Discontinued gemfibrozil 600 mg tablet 600 mg PO BID Qty: 60 2RF insulin glargine 100 unit/mL (3 mL) insulin pen, sensor 35 unit subcut QDAY 30 Days Qty: 10.5 2RF Referrals: No Primary/Family,Physician [Primary Care Provider] - Patient/Caregiver Discharge Instructions Discharge Activity: as per physical therapy Education Materials: Diabetes and Heart Disease, Osteomyelitis Dc, Diabetes and High Blood Pressure Print Language: Belarusian Stand Alone Forms: Brigitte Award Info., Patient Portal Info Letter Discharge Order Discharge Orders: Discharge (Routine); Ordered 03/22/25 Ordered By: Dorian Madrigal Quality Discharge Quality Measures none
--- NOTE | 2025-03-22 15:26 | PC.SS ---
SS follow up note; SS was contacted by Dawn through [employer] and she informed SS that auth was obtained. SS contacted [facility], reference # [id number]. SS provided [facility] care with nurses station's number.
--- NOTE | 2025-03-22 16:17 | PC.NURSE ---
received call from KENNEDY Redmond and she informed me pt will be transported at 1800.
--- NOTE | 2025-03-22 17:06 | CHAP ---
Visit was made by the Spiritual Care Volunteer who prayed for them. (Volunteer was in the hospital from 15:10-17:06)
--- NOTE | 2025-03-22 18:31 | PC.NURSE ---
Called [facility] [phone] and gave report. Notified transport here to pick remover patient. Packet sent with transport.
== END 2025-03-22 18:27 | disposition skilled nursing facility (03) | DRG 344 ==
LOC: SERX 21:15 → SERHOLD 21:18 → S3SX 22:36 → S2SX 03-18 07:09 → S2NX 03-18 16:15 → S3NX 03-20 12:54
PROVIDERS: Internal Medicine Infectious Disease; Nurse Practitioner Family; Physician Assistant Medical; Student in an Organized Health Care Education/Training Program; Admitting Provider Student in an Organized Health Care Education/Training Program; Emergency Provider Emergency Medicine; Visit Provider Internal Medicine
DX: E11.69 Type 2 diabetes mellitus with other specified complication (principal); E78.5 Hyperlipidemia, unspecified; I10 Essential (primary) hypertension; M86.171 Other acute osteomyelitis, right ankle and foot; E11.40 Type 2 diabetes mellitus with diabetic neuropathy, unspecified; E11.65 Type 2 diabetes mellitus with hyperglycemia; F31.9 Bipolar disorder, unspecified; F40.00 Agoraphobia, unspecified; F29 Unspecified psychosis not due to a substance or known physiological condition; Z59.00 Homelessness unspecified; Z86.73 Personal history of transient ischemic attack (TIA), and cerebral infarction without residual deficits; Z89.411 Acquired absence of right great toe; Z79.4 Long term (current) use of insulin; D63.8 Anemia in other chronic diseases classified elsewhere; E83.42 Hypomagnesemia; F15.20 Other stimulant dependence, uncomplicated; F17.210 Nicotine dependence, cigarettes, uncomplicated; M86.671 Other chronic osteomyelitis, right ankle and foot; L08.82 Omphalitis not of newborn; E86.1 Hypovolemia; I45.10 Unspecified right bundle-branch block; I95.89 Other hypotension; Z59.82 Transportation insecurity
CPT/HCPCS: 36415; 71045; 73630; 73701; 80053; 81001; 82728; 83540; 83550; 83605; 83735; 83880; 84100; 84145; 85025; 85046; 85610; 85652; 85730; 86140; 86703; 86780; 86803; 87040; 87086; 93005; 93306; 96365; 96366; 96372; 97162; 99284; A4649; J0696; J1644; J1815; J2543; J3373; J3375; J3475; J3490; J7030; J7050; J7120; J7999; P9047; Q9967; A9270

== ENCOUNTER 2025-08-21 13:02 | Emergency (ER) | payer MEDICAID, SELFPAY ==
--- NOTE | 2025-08-21 13:13 | EDNOTE_ITS ---
ED General RME/HPI General Chief complaint: General Adult/Misc Complain Stated complaint: SHELTER CHECK; HYPOTENSIVE Time Seen by Provider: 08/21/25 13:05 Arrival date/time: 08/21/25 13:02 CC: Medical clearance low blood pressure HPI patient presents to the ER handcuffed by PD escort, he is pale, stating he is dizzy and lightheaded when he stands up. PD report and intake the patient's pressure continued to drop regularly. At this time I ordered orthostatic vital signs the patient was too dizzy lightheaded to stand up, the patient was immediately placed in the supine position in a bed. The pressures are now stable at 116/54 however the patient is semisomnolent. Patient is answering questions with mild prompting. PD tells me that they are familiar with this individual and has a history of drug abuse. Will give him Narcan to see if he responds more appropriately. Related Data Previous Rx's ?Medication ?Instructions ?Recorded aspirin 81 mg tablet,delayed 81 mg PO QDAY #30 tabs release atorvastatin 20 mg tablet 20 mg PO QPM #30 tabs meloxicam 7.5 mg tablet 7.5 mg PO QDAY #10 tabs 04/15 metformin 1,000 mg tablet 1,000 mg PO BID #60 tabs 04/15 blood sugar diagnostic (Accu-Chek #100 ea 03/19/25 Guide test strips) blood-glucose meter (Accu-Chek #1 ea 03/19/25 Guide Me Glucose Meter) lancets (Accu-Chek Softclix #100 ea 03/19/25 Lancets) pen needle, diabetic 31 gauge x #100 ea 03/19/2508/25 (1st Tier Unifine Pentips Plus) insulin lispro 100 unit/mL 1 sliding scale dose subcut 03/20/25 subcutaneous pen USEASDIRECTD #15 mL midodrine 10 mg tablet 10 mg PO QID #60 tabs Allergies Allergy/AdvReac Type Severity Reaction Status Date / Time No Known Allergies Allergy Verified 08/21/25 13:25 Review of Systems Review of Systems Narrative Review of Systems: GEN: No fever, no chills, no weight loss EYES: No discharge, no visual changes, no pain HEENT: No ear pain, no congestion, no sore throat PULM: No shortness of breath, no cough, no congestion CV: No chest pain, no dyspnea on exertion, no palpitations GI: No nausea, no vomiting, no diarrhea, no pain, no constipation : No frequency, no urgency, no dysuria MUSC/SKEL: No joint pain, no back pain SKIN: No rash PSYCH: No hallucinations, no depression HEME/LYMPH: No easy bleeding or bruising tendencies NEURO: No weakness, no headache, +dizziness Past Medical History Past Medical History NEUROLOGIC: Negative Neurological Disorders or Seizures CARDIAC: Positive Cardiac Disorders, Hypercholesterolemia and Hypertension; Negative Congestive Heart Failure RESPIRATORY: Positive Smoking; Negative Chronic Obstructive Pulmonary Disease (COPD) or Asthma GASTROINTESTINAL: Negative Gastrointestinal Disorders GENITOURINARY: Negative Genitourinary Disorders or Renal Disease MUSCULOSKELETAL: Negative Musculoskeletal Disorders ENDOCRINE: Positive Endocrine Disorders and Diabetes Mellitus Type 2; Negative Diabetes Mellitus Type 1 HEMATOLOGIC: Negative Blood Disorders or Sickle Cell Disease PSYCHO/SOCIAL: Positive Recreational Drug Use, Depression and Anxiety OTHER HISTORY: Positive Hospitalization; Negative Autoimmune Disease, Down Syndrome, Developmental Delay, Shingles, Falls, Blood Transfusions, Blood Transfusion Reaction, Anesthesia Reactions, Organ Transplant, Chemotherapy, Radiation Therapy, Hyperbaric Therapy, MRSA or Cancer Surgical History SURGICAL: Negative Organ Transplant Social History SMOKING STATUS: Light (< 1 pack/day) SECOND HAND EXPOSURE: Yes SUBSTANCE USE: amphetamines and methamphetamine ED Exam Narrative Physical exam: [General: Pale, appears in mild discomfort but not in any acute distress Head normocephalic HEENT: Within acceptable limits Neck is supple nontender Chest equal chest rise nontender to palpation Respiratory: Clear to auscultation no wheezes crackles or rubs CV: Rate rhythm is regular no murmurs rubs or clicks Abdomen is distended secondary to body habitus soft nontender no masses positive bowel sounds all 4 quadrants Back: No CVA tenderness no spinous process tenderness from cervical spine tho racic and lumbar spine Skin: Intact no petechiae rash induration ulceration or crepitus Extremities: Moving all extremity against resistance cap refill less than 2 seconds neurosensory intact Neuro: Awake alert oriented x3 Glascow coma 15 no focal deficits] Course Course Course Narrative: 1350, the patient was supine in the bed with a pressure 116/64. Patient given small amount of Narcan, with no significant change. The patient is awake alert now prompting answering questions with verbal prompting. Patient admits he is not dizzy or lightheaded. Patient was sat up in bed, patient states he feels better , denies any dizziness lightheadedness. Pressures jumped up to 133/86. The plan will be to infuse an additional 800 mL of the 1 L into them and then ambulate him if there is no lightheaded dizziness patient will be medically cleared for incarceration. After 1 L of fluid, and Narcan the patient's pressures are normalized the patient remains awake alert oriented with no other complaints patient is medically cleared for retirement. Quality Measures none Orders Category Date Time Status In and Out Catheter X1 Care 08/21/25 13:37 Completed Orthostatic Vitals NOW Care 08/21/25 13:06 Active Saline [Insert IV] NOW Care 08/21/25 13:11 Active Alcohol, Urine Stat Lab 08/21/25 13:41 Completed CBC Stat Lab 08/21/25 13:23 Completed CMP [Comprehensive Metabolic Panel] Stat Lab 08/21/25 13:23 Completed Drug Screen,Urine Stat Lab 08/21/25 13:41 Completed Urinalysis Stat Lab 08/21/25 13:40 Completed NALOXONE INJ (Vial) [Narcan Inj (Vial)] Med 08/21/25 13:34 Active 0.2 mg IV Q3M PRN Sodium Chloride 0.9% 1000 ml [Ns] 1,000 ml Med 08/21/25 13:12 Discontinued IV 999 mls/hr Vital Signs Vital signs: Vital Signs Pulse Rate 95 08/21/25 13:26 Blood Pressure 114/76 08/21/25 13:26 Discharge Plan Plan Patient Disposition: Group Home/Court/Law Patient condition on transfer: Stable Prescriptions/Referrals Prescriptions/Med Rec: No Action aspirin 81 mg tablet,delayed release (DR/EC) 81 mg PO QDAY Qty: 30 2RF atorvastatin 20 mg tablet 20 mg PO QPM Qty: 30 2RF meloxicam 7.5 mg tablet 7.5 mg PO QDAY Qty: 10 1RF metformin 1,000 mg tablet 1,000 mg PO BID Qty: 60 2RF (DME) blood-glucose meter [Accu-Chek Guide Me Glucose Mtr] Misc See Rx Instructions .Route Qty: 1 0RF Rx Instructions: As directed (DME) Accu-Chek Guide test strips Strip See Rx Instructions .Route Qty: 100 3RF Rx Instructions: As directed (DME) lancets [Accu-Chek Softclix Lancets] Misc See Rx Instructions .Route Qty: 100 3RF Rx Instructions: As directed (DME) pen needle, diabetic [1st Tier Unifine Pentips Plus] 31 gauge x 1/4 needle See Rx Instructions .Route Qty: 100 2RF Rx Instructions: As directed insulin lispro 100 unit/mL insulin pen 1 sliding scale dose subcut USEASDIRECTD Qty: 15 0RF midodrine 10 mg tablet 10 mg PO QID Qty: 60 0RF Referrals: No Primary/Family,Physician [Primary Care Provider] - In 1 week Problem List Clinical Impression: Medical clearance for incarceration, Hypotension Patient/Caregiver Discharge Instructions Education Materials: ED Low Blood Pressure, All Causes Print Language: Martiniquais PA/[employer] Supervising Physician PA/[employer] Supervising Physician: Sascha Garcia ENP [facility] Clinical Information Provided by: patient and law enforcement Medical Records reviewed [facility] Meds/Rx considered, not ordered None Labs/Rad/Tests considered, not ordered None Chronic Illness/Social Conditions which may negatively complicate care or outcome(s)-explain: ETOH/drugs/substance abuse EKG EKG not done Labs Labs: interpreted by in Lab(s) Interpretation(s): CBC shows no acute leukocytosis to have some mild anemia with hemoglobin 11.7 hematocrit of 35.2 respectively no thrombocytopenia CMP shows no significant electrolyte imbalances other than a glucose of 168 no renal impairment alk phos at 137, no other transaminitis or T. bili elevation. Urines 3+ glucose no other signs of infection UDS is positive for meth. Medication Administration(s) Medication Administration History Naloxone HCl (Naloxone Inj 0.4 Mg/Ml Vial) 0.2 mg IV Q3M PRN PRN Reason: OPIATE REVERSAL Stop: 09/20/25 13:33 Last Admin: 08/21/25 13:45 Dose: 0.2 mg Documented By: AIYLN Co-signed By: Discontinued Medications Sodium Chloride (Ns) 1,000 mls @ 999 mls/hr IV .Q1H1M ONE Stop: 08/21/25 14:12 Last Admin: 08/21/25 13:35 Dose: 999 mls/hr Documented By: AILYN
[2025-08-21 13:20] VITALS: BMI 25.8
[2025-08-21 13:26] VITALS: BP 114/76; BP 114/78; BP 65/51; PULSE 101; PULSE 94; PULSE 95
[2025-08-21 13:29] VITALS: BP 116/75; PULSE 100; RESP 15; TEMP 36.6; O2SAT 95
[2025-08-21] MEDS: SODIUM CHLORIDE 0.9% 1000 ML 1,000 ML 999 ML IV (13:35)
[2025-08-21 13:46] LABS: Basophils # (Auto) 0.0 Thou/mm3 (0.0-0.2); Basophils % (Auto) 0 % (0-2.5); Eosinophils # (Auto) 0.1 Thou/mm3 (0.0-0.5); Eosinophils % (Auto) 2 % (0-10); Hematocrit 35.2 % (41.0-53.0); Hemoglobin 11.7 g/dL (13.5-16.0); Immature Granulocytes Auto 0.02 Thou/mm3 (0.00-0.00); Lymphocytes # (Auto) 1.5 Thou/mm3 (1.0-4.8); Lymphocytes % (Auto) 19 % (10-50); Mean Corpuscular HGB Conc 33.2 g/dl (31.0-37.0); Mean Corpuscular Hemoglobin 30.0 pg (25.0-35.0); Mean Corpuscular Volume 90 fL (80-100); Monocytes # (Auto) 0.6 Thou/mm3 (0.0-0.8); Monocytes % (Auto) 7 % (0-12); Neutrophils # (Auto) 5.6 Thou/mm3 (1.8-7.7); Neutrophils % (Auto) 72 % (37-80); Nucleated Red Blood Cell # 0.00 Thou/mm3 (0.00-0.00); Nucleated Red Blood Cell % 0 /100 WBC (0); Platelet Count 308 Thou/mm3 (140-440); RDW Standard Deviation 42.0 fL (35.1-43.9); Red Blood Count 3.90 Miln/mm3 (4.50-5.90); White Blood Count 7.9 Thou/mm3 (3.8-10.6)
[2025-08-21 13:52] LABS: Collection Type, Urine Clean Catch; Squamous Epithelial Cell,Urine 0 /hpf (0-5)
[2025-08-21 14:01] LABS: Alanine Aminotransferase 16 U/L (10-49); Albumin, Serum 4.3 gm/dL (3.5-5.0); Albumin/Globulin Ratio 1.2 (1.2-2.2); Alkaline Phosphatase 137 U/L (46-116); Anion Gap 7 (7-16); Aspartate Amino Transferase 20 U/L (0-34); BUN/Creatinine Ratio 22 Ratio (12-20); Bilirubin,Total 0.3 mg/dL (0.3-1.2); Blood Urea Nitrogen 22 mg/dL (9-23); Calcium 8.8 mg/dL (8.3-10.6); Calcium (Corrected) 8.8 mg/dL (8.5-10.1); Carbon Dioxide 28.9 mMol/L (20.0-31.0); Chloride 107 mMol/L (98-107); Creatinine (Component) 1.0 mg/dL (0.6-1.3); Estimated Creatinine Clearance 86.4 mL/min (>60); Globulin 3.5 gm/dL (2.3-3.5); Glucose 168 mg/dL (74-106); Osmolality,Calculated 292 (275-295); Potassium 4.5 mMol/L (3.4-5.1); Sodium 143 mMol/L (136-145); Total Protein 7.8 gm/dL (5.7-8.2); eGFR > 60 See Note
[2025-08-21 14:03] LABS: Bilirubin,Urine Negative (Negative); Blood,Urine Negative (Negative); Clarity,Urine Clear (Clear/Hazy); Color,Urine Lt-Yellow (Lt Yel-Yel); Glucose, Urine 3+ (Negative); Ketones,Urine Negative (Negative); Leukocyte Esterase,Urine Negative (Negative); Nitrite,Urine Negative (Negative); PH,Urine 6.0 (5.0-7.0); Protein,Urine Trace (Neg - Trace); RBC,Urine 2 /hpf (0-3); Specific Gravity,Urine 1.025 (1.001-1.035); Urobilinogen,Urine Negative mg/dL (0.0-1.0); WBC,Urine 2 /hpf (0-5)
[2025-08-21 14:12] VITALS: BP 157/98; PULSE 106; RESP 18; TEMP 36.8; O2SAT 98
[2025-08-21 14:16] LABS: Alcohol, Urine Negative (Negative); Amphetamine/Methamp Scrn,U Positive (Negative); Barbiturate Screen,Urine Negative (Negative); Benzodiazepines Screen,Urine Negative (Negative); Benzoylecgonine Screen, Ur Negative (Negative); Fentanyl Screen,Urine Negative (Negative); Opiate Screen,Urine Negative (Negative); THC Screen,Urine Negative (Negative)
[2025-08-21 15:05] VITALS: BP 157/90; PULSE 92; RESP 16; O2SAT 97
== END 2025-08-21 15:10 ==
PROVIDERS: Registered Nurse General Practice; Emergency Provider Emergency Medicine
DX: Z02.89 Encounter for other administrative examinations (principal); I95.9 Hypotension, unspecified
CPT/HCPCS: 36415; 51701; 80053; 80307; 80320; 81001; 85025; 99283; J2312; J7030; G0480